=== PATIENT | female | born 1990 | race African-American/Black ===

== ENCOUNTER 2018-12-24 15:58 | Inpatient (IN) | payer OTHER ==
[2018-12-24 16:27] VITALS: BMI 34.0
--- NOTE | 2018-12-24 16:28 | PDOC ---
Rapid Medical Evaluation Chief Complaint: Shortness of Breath Time Seen by Provider: 12/24/18 16:26 Medical Evaluation: Allergies Allergy/AdvReac Type Severity Reaction Status Date / Time Fish Containing Products Allergy Severe Swelling Verified 07/21/15 12:40 vancomycin Allergy Severe Swelling Verified 07/21/15 12:40 sulfamethoxazole Allergy Intermediate fever, Verified 07/24/15 10:33 [From Bactrim] abnl lfts trimethoprim [From Bactrim] Allergy Intermediate fever, Verified 07/24/15 10:33 abnl lfts clindamycin Allergy Itching Verified 08/26/18 11:19 12/24/18 16:26 I have performed a brief in-person evaluation of this patient. The patient presents with a chief complaint of: h/o HIV/AID not on meds sent by PCP for evaluation of possible PNA s/p presenting to PCP today with URI symptoms and cough. Patient report malaise and nausea Pertinent physical exam findings: A&O x 3, lungs CTAB. heart RRR I have ordered the following:CXR The patient will proceed to the ED for further evaluation. Discharge Disposition - Diagnosis SOB (shortness of breath) - Referrals Referrals: Kayli Alexander PHOTOENGRAVING SUPERVISOR [Primary Care Provider] - - Patient Instructions - Post Discharge Activity
--- NOTE | 2018-12-24 16:49 | PDOC ---
History of Present Illness - General Chief Complaint: Shortness of Breath Stated Complaint: Respiratory Time Seen by Provider: 12/24/18 16:26 History Source: Patient Exam Limitations: No Limitations - History of Present Illness Initial Comments: 28 yo F w a pmh of asthma (no hospitalizations since childhood) and HIV formerly on HAART therapy - but not currently taking meds for 3 weeks, and chronic varicella zoster presents to the ER BIBEMS sent by her PCP - Kayli Alexander - for evaluation of possible PNA, URI symptoms and a cough. The patient reports that she ran out of her HIV meds 3 weeks ago, tried filling them but was unsuccessful. She admits to having a productive cough for the past week with dark brown phlegm. She states she had a negative TB test done in May. Here in the ED she endorses a headache whenever she coughs, but no neck pain or rigidity. She endorses a history of PCP pneumonia in the past but is allergic to Bactrim. She also endorses significant abdominal pain associated with 3 days of watery diarrhea. She admits to feeling very cold recently and generalized fatigue. Lastly, she states she feels like she is dying. She denies any dysuria, frequency, urgency, numbness, tingling, chills, blurry vision, nausea, or vomiting. PCP: Kayli Alexander PSH: None reported Social Hx: Lives in [facility], Every day smoker 7 per day, smokes K2, marijuana, denies IVDU or other substances including alcohol. Allergies: Fish containing products, vancomycin, Sulfamethoxazole, trimethoprim , clindamycin Past History - Past Medical History Allergies/Adverse Reactions: Allergies Allergy/AdvReac Type Severity Reaction Status Date / Time Fish Containing Products Allergy Severe Swelling Verified 12/24/18 20:11 vancomycin Allergy Severe Swelling Verified 12/24/18 20:11 sulfamethoxazole Allergy Intermediate fever, Verified 12/24/18 20:11 [From Bactrim] abnl lfts trimethoprim [From Bactrim] Allergy Intermediate fever, Verified 12/24/18 20:11 abnl lfts clindamycin Allergy Itching Verified 12/24/18 20:11 Home Medications: Ambulatory Orders Unobtainable 12/24/18 Anemia: No Asthma: Yes (ON MDI) Cancer: No Cardiac Disorders: No CVA: No COPD: No CHF: No Dementia: No Diabetes: No GI Disorders: No Disorders: No HTN: Yes (ON MEDS.) Hypercholesterolemia: No Kidney Stones: No Liver Disease: No Seizures: No Thyroid Disease: No - Surgical History Abdominal Surgery: No Appendectomy: No Cardiac Surgery: No Cholecystectomy: No Lung Surgery: No Neurologic Surgery: No Orthopedic Surgery: No - Reproductive History PID: No - Immunization History Immunization Up to Date: No - Suicide/Smoking/Psychosocial Hx Smoking History: Never smoked Have you smoked in the past 12 months: Yes Number of Cigarettes Smoked Daily: 20 Information on smoking cessation initiated: No 'Breaking Loose' booklet given: 05/21/18 Hx Alcohol Use: No Drug/Substance Use Hx: No Substance Use Type: Marijuana Hx Substance Use Treatment: Yes (One previous inpt rehab @ [facility] in 2014) Review of Systems - Review of Systems Able to Perform ROS?: Yes Comments:: CONSTITUTIONAL: Present: Chills, generalized weakness, malaise, loss of appetitie. Absent: fever, diaphoresis HEENT: Absent: rhinorrhea, nasal congestion, throat pain, throat swelling, difficulty swallowing, mouth swelling, ear pain, eye pain, visual Changes CARDIOVASCULAR: Present: Lightheadedness. Absent: chest pain, syncope, palpitations, irregular heart rate, peripheral edema RESPIRATORY: Present: Cough, shortness of breath, dyspnea with exertion, hemoptysis Absent: cough, orthopnea, wheezing, stridor GASTROINTESTINAL: Present: Abdominal pain, diarrhea Absent: abdominal distension, nausea, vomiting, constipation, melena, hematochezia GENITOURINARY: Absent: dysuria, frequency, urgency, hesitancy, hematuria, flank pain, genital pain MUSCULOSKELETAL: Present: Myalgia Absent: arthralgia, joint swelling SKIN: Present: Rash Absent: itching, pallor HEMATOLOGIC/IMMUNOLOGIC: Present: Frequent infections Absent: easy bleeding, easy bruising, lymphadenopathy ENDOCRINE: Absent: unexplained weight gain, unexplained weight loss, heat intolerance, cold intolerance NEUROLOGIC: Absent: headache, focal weakness or paresthesias, dizziness, unsteady gait, seizure, mental status changes, bladder or bowel incontinence PSYCHIATRIC: Present: Depression Absent: anxiety, suicidal or homicidal ideation, hallucinations. *Physical Exam - Vital Signs Last Vital Signs Temp Pulse Resp BP Pulse Ox 99.2 F 94 H 16 115/83 99 12/24/18 16:22 12/24/18 16:22 12/24/18 16:22 12/24/18 16:22 12/24/18 16:22 - Physical Exam Comments: GENERAL: Patient looks sick. Feels like she is dying. Morbidly obese. Well nourished. Awake and alert. HEENT: Oral thursh. Apthous ulcer on right later upper outer lip. Normocephalic, atraumatic. PERRLA, EOMI. No conjunctival pallor. Sclera are non-icteric. Moist mucous membranes. NECK: Supple. Full ROM. No JVD. No thyromegaly. No lymphadenopathy. CARDIOVASCULAR: Regular rate and rhythm. No murmurs, rubs, or gallops. Distal pulses are 2+ and symmetric. PULMONARY: Clear evidence of respiratory distress. Decreased breath sounds diffusely. No wheezing, rales or rhonchi. ABDOMINAL: Diffuse abdominal pain with no focal TTP. Abdomen is still soft and non- distended. No rebound or guarding. No organomegaly. Hyperactive bowel sounds. MUSCULOSKELETAL Normal range of motion at all joints. No bony deformities or tenderness. No CVA tenderness. EXTREMITIES: No cyanosis. No clubbing. No edema. No calf tenderness. SKIN: Warm and dry. Normal capillary refill. No rashes. No jaundice. NEUROLOGICAL: Alert, awake, appropriate. Cranial nerves 2-12 intact. Normal speech. Gait is normal without ataxia. PSYCHIATRIC: Cooperative. Good eye contact. Depressed mood and affect. Moderate Sedation - Procedure Monitoring Vital Signs: Procedure Monitoring Vital Signs Temperature 99.2 F 12/24/18 16:22 Pulse Rate 94 H 12/24/18 16:22 Respiratory Rate 16 12/24/18 16:22 Blood Pressure 115/83 12/24/18 16:22 O2 Sat by Pulse Oximetry (%) 99 12/24/18 16:22 ED Treatment Course - LABORATORY CBC & Chemistry Diagram: 12/24/18 16:40 12/24/18 16:40 Medical Decision Making - Medical Decision Making 28 yo F w a pmh of asthma (no hospitalizations since childhood) and HIV formerly on HAART therapy - but not currently taking meds for 3 weeks, and chronic varicella zoster presents to the ER BIBEMS sent by her PCP - Kayli Alexander - for evaluation of possible PNA, URI symptoms and a cough. The patient reports that she ran out of her HIV meds 3 weeks ago, tried filling them but was unsuccessful. She admits to having a productive cough for the past week with dark brown phlegm. She states she had a negative TB test done in May. Here in the ED she endorses a headache whenever she coughs, but no neck pain or rigidity. She endorses a history of PCP pneumonia in the past but is allergic to Bactrim. She also endorses significant abdominal pain associated with 3 days of watery diarrhea. She admits to feeling very cold recently and generalized fatigue. Lastly, she states she feels like she is dying. - VSS DDx IBNLT: AIDS related illness, PNA - PCP vs CAP, Sepsis, Neutropenic fever, cryptosporidium, other infection. Plan: ED adult sepsis work up, labs, urine, cultures, CXR, CTAP, Negative Isolation precautions, IV hydration, ID consult, Abx, Admit. - Patient is neutropenic with WBC of 1.7 - given allergy to bactrim and vancomycin will start patient on Zosyn, Dapsone, and azithromycin. - Possibility this can be PCP pneumonia - Lactic acid ordered. Abdominal pain: Will obtain CTAP and order cryptosporidium stool antigen. - CTAP shows no acute abdominal pathology. - CTAP does show bronchiectasis Consulted Dr. Mccarty who requested to not give dapsone but to give atovaquone instead bc we don't know the G6PD status of the patient. - Also requested stool cultures, urine legionella, Chest CT, LDH, and flu swab. Will Admit patient for further care. *DC/Admit/Observation/Transfer Diagnosis at time of Disposition: SOB (shortness of breath), Bronchiectasis, AIDS (acquired immunodeficiency syndrome), CD4 <=200, Neutropenia associated with acquired immune deficiency syndrome (AIDS) - Discharge Dispostion Condition at time of disposition: Guarded Decision to Admit order: Yes - Referrals Referrals: Kayli Alexander FRAMING MILL SUPERVISOR [Primary Care Provider] - - Patient Instructions - Post Discharge Activity
--- NOTE | 2018-12-24 16:50 | PDOC ---
Attending Attestation - HPI HPI: 12/24/18 18:13 The patient is a 28 year old female with a PMH og asthma and HIV, chronic varicella zoster who presents to the ER for productive cough and shortness of breath for the past 2 weeks and abdominal pain with watery diarrhea for the past 3 days. Patient states the cough is productive of dark brown phlegm. Patient has not been on HAART therapy for the past 3 weeks because she ran out and has been unable to fill the prescription. Denies any urinary symptoms, nausea or vomiting. PCP: Kayli Alexander PSH: None reported Social Hx: Lives in [facility], Every day smoker 7 per day, smokes K2, marijuana, denies IVDU or other substances including alcohol. Allergies: Fish containing products, vancomycin, Sulfamethoxazole, trimethoprim , clindamycin <Susan Erickson - Last Filed: 12/24/18 18:32> - Resident Resident Name: Eduar Celestin - Physicial Exam PE: 12/24/18 20:35 Agree with resident exam. Patient is sleeping but easily arousable. Lungs are clear. HR is regular rate and rhythm. Abdomen is soft, non tender and non distended. - Medical Decision Making 12/24/18 18:28 Pt presents to the ED complaining of generalized abdominal pain, shortness of breath and cough productive of dark sputum. Patient has known end stage AIDS, with CD4 count of 24 and has recently been non compliant with her medications. Will check labs and start broad spectrum antibiotics, including dapsone for PCP and zithromax for MAC. Will place in isolation and send blood and urine cx. GIven her abdominal pain and her immunocompromised status, will check CT abdomen pelvis to rule out intra-abdominal pathology. <Lourdes Dejesus - Last Filed: 12/24/18 20:37>
[2018-12-24 16:56] LABS: BASO % 0.9 % (0-2.0); EOS % 1.9 % (0-4.5); HEMOGLOBIN 12.7 GM/dL (10.7-15.3); LYMPH % 18.5 % (8-40); MCH 33.4 pg (25.7-33.7); MCHC 34.5 g/dl (32.0-36.0); MEAN CELL VOLUME 96.9 fl (80-96); MEAN PLT VOLUME 9.4 fl (7.5-11.1); MONO % 8.6 % (3.8-10.2); NEUT % 70.1 % (42.8-82.8); PLATELET COUNT 150 K/MM3 (134-434); RBC 3.82 M/mm3 (3.60-5.2); RDW 12.5 % (11.6-15.6)
[2018-12-24 16:59] LABS: WHITE BLOOD COUNT 1.7 K/mm3 (4.0-10.0)
[2018-12-24 17:22] LABS: ALBUMIN 2.8 g/dl (3.4-5.0); ALK PHOS 59 U/L (45-117); ANION GAP 6 MMOL/L (8-16); BILIRUBIN,TOTAL 0.3 mg/dL (0.2-1); BLOOD UREA NITROGEN 12 mg/dL (7-18); CALCIUM 8.3 mg/dL (8.5-10.1); CHLORIDE 106 mmol/L (98-107); CO2 27 mmol/L (21-32); CREATININE 0.9 mg/dL (0.55-1.3); GLUCOSE,RANDOM 84 mg/dL (74-106); POTASSIUM 3.5 mmol/L (3.5-5.1); SGOT/AST 22 U/L (15-37); SGPT/ALT 14 U/L (13-61); SODIUM 140 mmol/L (136-145); TOT PROT 8.4 g/dl (6.4-8.2)
[2018-12-24] MEDS ORDERED: SODIUM CHLORIDE IV ONE (17:27)
[2018-12-24] MEDS ORDERED: PIPERACILLIN/TAZOB 4.5 GM 4.5 GM in DEXTROSE 5%-WATER 100 ML IVPB ONE (17:57)
[2018-12-24] MEDS ORDERED: AZITHROMYCIN 600 MG TABLET PO ONE (17:59)
[2018-12-24 18:41] LABS: PLATELET ESTIMATE ADEQUATE
[2018-12-24] MEDS ORDERED: PIPERACILLIN/TAZOB 4.5 GM 4.5 GM/100 ML BAG IVPB ONE (19:26)
[2018-12-24 19:28] LABS: VENOUS PC02 39.2 mmHg (38-52); VENOUS PH 7.43 (7.32-7.42); VENOUS PO2 60.1 mmHg (28-48)
[2018-12-24] MEDS ORDERED: AZITHROMYCIN 250 MG TABLET PO ONE (19:41)
[2018-12-24 19:46] LABS: INR 0.97 (0.83-1.09); PROTHROMBIN TIME (PATIENT) 11.4 SEC (9.7-13.0)
[2018-12-24] MEDS ORDERED: AZITHROMYCIN 250 MG TABLET ONE (19:51)
[2018-12-24 20:07] LABS: URINE APPEARANCE SLCLOUDY; URINE BILIRUBIN NEGATIVE (<2.0 mg/dL); URINE COLOR AMBER; URINE GLUCOSE (UA) NEGATIVE (NEGATIVE); URINE KETONE NEGATIVE (NEGATIVE); URINE LEUK ESTERASE NEGATIVE (NEGATIVE); URINE NITRITE NEGATIVE (NEGATIVE); URINE PROTEIN 3+ (NEGATIVE)
[2018-12-24] MEDS ORDERED: ACETAMINOPHEN 1000 MG/100 ML VIAL (NON FORMULARY) IVPB ONE (20:19)
[2018-12-24] MEDS ORDERED: ACETAMINOPHEN INJECTION 100 ML IVPB ONE (20:29)
[2018-12-24 20:36] LABS: EPI CELLS RARE /HPF (FEW); URINE MUCUS RARE
--- NOTE | 2018-12-24 22:20 | PN ---
Teaching Attending Note Name of Resident: Hemalatha Castano ATTENDING PHYSICIAN STATEMENT I saw and evaluated the patient. I reviewed the resident's note and discussed the case with the resident. I agree with the resident's findings and plan as documented. SUBJECTIVE: Patient is a 28 year old woman with PMH of asthma (no hospitalizations since childhood), MRSA infection?, proteinuria with prior kidney biopsy and HIV disease formerly on HAART therapy - but not currently taking meds for 3 weeks, and chronic varicella zoster sent to the ER by her PCP - Kayli Alexander - for evaluation of possible PNA, URI symptoms and a cough. The patient reports that she ran out of her HIV meds 3 weeks ago, tried filling them but was unsuccessful. She admits to having a productive cough for the past week with dark brown sputum. She states she had a negative TB test done in May. She has a headache whenever she coughs, but no neck pain or rigidity. She has a history of PCP pneumonia in the past but is allergic to Bactrim. She also has abdominal pain associated with 3 days of watery diarrhea. She admits to feeling very cold recently and generalized fatigue. Lastly, she states she feels like she is dying. She denies any dysuria, frequency, urgency, numbness, tingling, chills, blurry vision, nausea, or vomiting. Lives in [facility], Every day smoker 7 per day, smokes K2, marijuana, denies IVDU or other substances including alcohol. Allergies include fish containing products, vancomycin, Sulfamethoxazole, trimethoprim, clindamycin OBJECTIVE: Alert Vital Signs Period Temp Pulse Resp BP Sys/Manriquez Pulse Ox Last 24 Hr 99.2 F 94 16 115/83 99 HEENT: No Jaundice, eye redness or discharge, PERRLA, EOMI. Normocephalic, atraumatic. External ears are normal and hearing is grossly intact. No nasal discharge. Has oral thrush and a mouth ulcer on right bucal mucosa. Neck: Supple, nontender. Cervical lymphadenopathy; no thyromegaly. No JVD Chest: Good effort. Clear to auscultation and percussion. Heart: Regular. No S3, rub or murmur Abdomen: Not distended, soft, diffuse tenderness and no HSM. No rebound or guarding. Normoactive bowel sounds. Ext: Peripheral pulses intact. No leg edema. Skin: Warm and dry. No petechiae, rash or ecchymosis. Neuro: Alert. Oriented x3. CN 2-12 grossly intact. Sensation grossly intact in all four extremities and DTR are symmetric. Home Medications Medication Instructions Recorded Unobtainable 12/24/18 Abnormal Lab Results 12/24/18 12/24/18 12/24/18 16:40 16:40 18:54 WBC 1.7 L* MCV 96.9 H Absolute Neuts (auto) 1.2 L PTT (Actin FS) VBG pH POC VBG pO2 Mixed VBG HCO3 Anion Gap 6 L Calcium 8.3 L Total Protein 8.4 H Albumin 2.8 L Urine Protein 3+ H Urine Urobilinogen 2.0 H 12/24/18 12/24/18 19:17 19:17 WBC MCV Absolute Neuts (auto) PTT (Actin FS) 21.0 L VBG pH 7.43 H POC VBG pO2 60.1 H Mixed VBG HCO3 25.5 H Anion Gap Calcium Total Protein Albumin Urine Protein Urine Urobilinogen ASSESSMENT AND PLAN: 1.Leukopenia/Rule out Sepsis - Source of infection unclear, but in view of recent CD4 count of ?24, GI/Pulmonary-related AIDS opportunistic infections are being ruled out. CXR shows possible RLL infiltrate and CT abdomen suggest bronchiectasis, but no significant abdominal/pelvic findings. ID has been consulted. Will get stool cultures, urine legionella, Chest CT, LDH, sputum for AFB and flu swab. Cryposporidium infection and PCP will be ruled out. Being treated with zosyn, azithromycin and atovaquone for PCP prophylaxis. Continue IV NS, reverse isolation and nystatin swish and swallow. Mouth ulcer may be related to leukopenia - will monitor it daily. Monitor WBC daily and discuss use of neupogen with ID emergency management consultant. 2. Hypoalbuminemia - Possibly due to combined effects of proteinuria, malnutrition and inflammation associated with comorbid chronic conditions. Will ensure adequate dietary protein intake and also consult oliver filter operator. 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 3. Tobacco Use We will provide patient all the necessary assistance to facilitate smoking cessation and prescribe Nicotine patch. 4. Obesity - Will provide patient all the necessary assistance, counseling and positive reinforcement to facilitate weight loss. Consult oliver filter operator. 5. DVT prophylaxis - Lovenox 40 mg SQ q 24 hours. 6. Advance directives - Full code
[2018-12-24] MEDS ORDERED: SODIUM CHLORIDE 1,000 ML IV SCH (23:45)
--- NOTE | 2018-12-24 23:54 | HP ---
CHIEF COMPLAINT:fatigue PCP:Dr. Alexander HISTORY OF PRESENT ILLNESS: Patient is a 28 year old female with past medical history of asthma and HIV (on HAART therapy), presented with fatigue, accompanied by cough and loose watery stools that started 2 weeks ago. Of note, patient has not had taken her HIV medications the past 3 weeks as she ran out and was not able to obtain a prescription. Two weeks ago, she started feeling fatigued with cough productive of brownish sputum, headache and subjective fevers. She went to [facility] where she was given IV fluids and was sent home with antibiotics which she was not able to take. Patient continue to feel tired with loss of appetite, and three days ago, started having episodes of loose watery stools (about 2 per day ) accompanied by diffuse abdominal pain. Patient went to her PCP and was sent from there for further management. Patient denies any chest pain, SOB, rhinorrhea, sore throat, difficulty swallowing. ER course was notable for: (1)WBC 1.7 (2)CT AP: no abdominal pathologies, bilateral inguinal LADs, bronchiectasis (3)IV Azithromycin/Zosyn (4) IV NS Recent Travel:denies PAST MEDICAL HISTORY: Asthma HIV (on HAART) PAST SURGICAL HISTORY: none Social History: Smoking:smokes 1/2 ppd for 15 years Alcohol:occasional Drugs: smokes marijuana about twice a week Family History: Father - DM Mother - Atrial fibrillation Allergies Fish Containing Products Allergy (Severe, Verified 12/24/18 20:11) Swelling vancomycin Allergy (Severe, Verified 12/24/18 20:11) Swelling sulfamethoxazole [From Bactrim] Allergy (Intermediate, Verified 12/24/18 20:11) fever, abnl lfts trimethoprim [From Bactrim] Allergy (Intermediate, Verified 12/24/18 20:11) fever, abnl lfts clindamycin Allergy (Verified 12/24/18 20:11) Itching HOME MEDICATIONS: Home Medications Medication Instructions Recorded Unobtainable 12/24/18 REVIEW OF SYSTEMS CONSTITUTIONAL: Absent: fever, chills, diaphoresis, generalized weakness, malaise, loss of appetite, weight change HEENT: Absent: rhinorrhea, nasal congestion, throat pain, throat swelling, difficulty swallowing, mouth swelling, ear pain, eye pain, visual changes CARDIOVASCULAR: Absent: chest pain, syncope, palpitations, irregular heart rate, lightheadedness , peripheral edema RESPIRATORY: Absent: cough, shortness of breath, dyspnea with exertion, orthopnea, wheezing, stridor, hemoptysis GASTROINTESTINAL: Absent: abdominal pain, abdominal distension, nausea, vomiting, diarrhea, constipation, melena, hematochezia GENITOURINARY: Absent: dysuria, frequency, urgency, hesitancy, hematuria, flank pain, genital pain MUSCULOSKELETAL: Absent: myalgia, arthralgia, joint swelling, back pain, neck pain SKIN: Absent: rash, itching, pallor HEMATOLOGIC/IMMUNOLOGIC: Absent: easy bleeding, easy bruising, lymphadenopathy, frequent infections ENDOCRINE: Absent: unexplained weight gain, unexplained weight loss, heat intolerance, cold intolerance NEUROLOGIC: Absent: headache, focal weakness or paresthesias, dizziness, unsteady gait, seizure, mental status changes, bladder or bowel incontinence PSYCHIATRIC: Absent: anxiety, depression, suicidal or homicidal ideation, hallucinations. PHYSICAL EXAMINATION Vital Signs - 24 hr 12/24/18 16:22 Temperature 99.2 F Pulse Rate 94 H Respiratory 16 Rate Blood Pressure 115/83 O2 Sat by Pulse 99 Oximetry (%) GENERAL: Awake, alert, and fully oriented, in no acute distress. EYES: PERRLA, EOMI, sclera anicteric, conjunctiva clear. EARS, NOSE, THROAT: Oral thrush, apthous ulcers on the right lateral lip. Dry mucous membranes. NECK: Normal range of motion, supple without lymphadenopathy, JVD, or masses. LUNGS: Breath sounds equal, clear to auscultation bilaterally. HEART: Regular rate and rhythm, normal S1 and S2 without murmur, rub or gallop. ABDOMEN: Soft, nontender, not distended, normoactive bowel sounds. MUSCULOSKELETAL: Normal range of motion at all joints. No bony deformities or tenderness. No CVA tenderness. UPPER EXTREMITIES: 2+ pulses, warm, well-perfused. No peripheral edema. LOWER EXTREMITIES: 2+ pulses, warm, well-perfused. No peripheral edema. NEUROLOGICAL: Cranial nerves II-XII intact. Motor strength 5/5, sensation intact. Normal speech. Normal gait. PSYCHIATRIC: Cooperative. Good eye contact. Appropriate mood and affect. SKIN: Warm, dry, normal turgor. Laboratory Results - last 24 hr 12/24/18 12/24/18 12/24/18 16:40 16:40 18:54 WBC 1.7 L* RBC 3.82 Hgb 12.7 Hct 37.0 MCV 96.9 H MCH 33.4 MCHC 34.5 RDW 12.5 Plt Count 150 MPV 9.4 Absolute Neuts (auto) 1.2 L Neutrophils % 70.1 Neutrophils % (Manual) 72.0 Band Neutrophils % 4.0 Lymphocytes % 18.5 D Lymphocytes % (Manual) 18.0 Monocytes % 8.6 Monocytes % (Manual) 4 Eosinophils % 1.9 Eosinophils % (Manual) 2.0 Basophils % 0.9 Basophils % (Manual) 0.0 Nucleated RBC % 0 Platelet Estimate Adequate PT with INR INR PTT (Actin FS) VBG pH POC VBG pCO2 POC VBG pO2 Mixed VBG HCO3 Sodium 140 Potassium 3.5 Chloride 106 Carbon Dioxide 27 Anion Gap 6 L BUN 12 Creatinine 0.9 Creat Clearance w eGFR > 60 Random Glucose 84 Calcium 8.3 L Total Bilirubin 0.3 AST 22 ALT 14 Alkaline Phosphatase 59 Creatine Kinase CK-MB (CK-2) Troponin I Total Protein 8.4 H Albumin 2.8 L Urine Color Nneka Urine Appearance Slcloudy Urine pH 5.0 Ur Specific Center 1.023 Urine Protein 3+ H Urine Glucose (UA) Negative Urine Ketones Negative Urine Blood Negative Urine Nitrite Negative Urine Bilirubin Negative Urine Urobilinogen 2.0 H Ur Leukocyte Esterase Negative Urine WBC (Auto) None Urine RBC (Auto) None Ur Epithelial Cells Rare Urine Mucus Rare Urine HCG, Qual Influenza A (Rapid) Influenza B (Rapid) Blood Type Antibody Screen 12/24/18 12/24/18 12/24/18 19:16 19:17 19:17 WBC RBC Hgb Hct MCV MCH MCHC RDW Plt Count MPV Absolute Neuts (auto) Neutrophils % Neutrophils % (Manual) Band Neutrophils % Lymphocytes % Lymphocytes % (Manual) Monocytes % Monocytes % (Manual) Eosinophils % Eosinophils % (Manual) Basophils % Basophils % (Manual) Nucleated RBC % Platelet Estimate PT with INR 11.40 INR 0.97 PTT (Actin FS) 21.0 L VBG pH POC VBG pCO2 POC VBG pO2 Mixed VBG HCO3 Sodium Potassium Chloride Carbon Dioxide Anion Gap BUN Creatinine Creat Clearance w eGFR Random Glucose Calcium Total Bilirubin AST ALT Alkaline Phosphatase Creatine Kinase 73 CK-MB (CK-2) < 1.0 Troponin I < 0.02 Total Protein Albumin Urine Color Urine Appearance Urine pH Ur Specific Center Urine Protein Urine Glucose (UA) Urine Ketones Urine Blood Urine Nitrite Urine Bilirubin Urine Urobilinogen Ur Leukocyte Esterase Urine WBC (Auto) Urine RBC (Auto) Ur Epithelial Cells Urine Mucus Urine HCG, Qual Influenza A (Rapid) Influenza B (Rapid) Blood Type Antibody Screen 12/24/18 12/24/18 12/24/18 19:17 19:17 20:01 WBC RBC Hgb Hct MCV MCH MCHC RDW Plt Count MPV Absolute Neuts (auto) Neutrophils % Neutrophils % (Manual) Band Neutrophils % Lymphocytes % Lymphocytes % (Manual) Monocytes % Monocytes % (Manual) Eosinophils % Eosinophils % (Manual) Basophils % Basophils % (Manual) Nucleated RBC % Platelet Estimate PT with INR INR PTT (Actin FS) VBG pH 7.43 H POC VBG pCO2 39.2 POC VBG pO2 60.1 H Mixed VBG HCO3 25.5 H Sodium Potassium Chloride Carbon Dioxide Anion Gap BUN Creatinine Creat Clearance w eGFR Random Glucose Calcium Total Bilirubin AST ALT Alkaline Phosphatase Creatine Kinase CK-MB (CK-2) Troponin I Total Protein Albumin Urine Color Urine Appearance Urine pH Ur Specific Center Urine Protein Urine Glucose (UA) Urine Ketones Urine Blood Urine Nitrite Urine Bilirubin Urine Urobilinogen Ur Leukocyte Esterase Urine WBC (Auto) Urine RBC (Auto) Ur Epithelial Cells Urine Mucus Urine HCG, Qual Negative Influenza A (Rapid) Influenza B (Rapid) Blood Type B POSITIVE Antibody Screen Negative 12/24/18 21:09 WBC RBC Hgb Hct MCV MCH MCHC RDW Plt Count MPV Absolute Neuts (auto) Neutrophils % Neutrophils % (Manual) Band Neutrophils % Lymphocytes % Lymphocytes % (Manual) Monocytes % Monocytes % (Manual) Eosinophils % Eosinophils % (Manual) Basophils % Basophils % (Manual) Nucleated RBC % Platelet Estimate PT with INR INR PTT (Actin FS) VBG pH POC VBG pCO2 POC VBG pO2 Mixed VBG HCO3 Sodium Potassium Chloride Carbon Dioxide Anion Gap BUN Creatinine Creat Clearance w eGFR Random Glucose Calcium Total Bilirubin AST ALT Alkaline Phosphatase Creatine Kinase CK-MB (CK-2) Troponin I Total Protein Albumin Urine Color Urine Appearance Urine pH Ur Specific Center Urine Protein Urine Glucose (UA) Urine Ketones Urine Blood Urine Nitrite Urine Bilirubin Urine Urobilinogen Ur Leukocyte Esterase Urine WBC (Auto) Urine RBC (Auto) Ur Epithelial Cells Urine Mucus Urine HCG, Qual Influenza A (Rapid) Negative Influenza B (Rapid) Negative Blood Type Antibody Screen ASSESSMENT/PLAN: Patient is a 28 year old female with past medical history of asthma and HIV (on HAART therapy), presented with fatigue, accompanied by cough and loose watery stools that started 2 weeks ago. #Fatigue likely 2/2 HIV, dehydration from poor oral intake, rule out PNA -WBC 1.7, last CD4 count as per PCP 27 -CT abdomen - no acute pathology, bronchiectasis -Chest CT ordered -ID (Dr. Yañez) consulted. Recommendations appreciated. -Urine legionella, urine culture -sputum culture and AFB -Blood culture -Stool culture and cryptosporidium -LDH -IV Azithromycin and Zosyn started at the ED -Will continue Azithromycin and Zosyn -Start Atovaquone 1500mg for PCP prophylaxis -IV hydration -Reverse isolation #Oral thrush -Nystatin swish and swallow #Neutropenia -WBC 1.7 -neutropenic isolation -neutropenic diet -will continue to monitor #FEN -IV NS @ 100cc/hr -Electrolytes wnl , routine bmp monitoring -Neutropenic diet #Prophylaxis -Lovenox 40mg sq daily #Disposition -full code -admit to med surg -neutropenic isolation Visit type - Emergency Visit Emergency Visit: Yes ED Registration Date: 12/24/18 Care time: The patient presented to the Emergency Department on the above date and was hospitalized for further evaluation of their emergent condition. - New Patient This patient is new to me today: Yes Date on this admission: 12/25/18 - Critical Care Critical Care patient: No
[2018-12-25] MEDS ORDERED: DEXTROSE 5%-WATER - 50 ML IVPB ONE ×3 (00:39→18:29)
[2018-12-25] MEDS ORDERED: PIPERACILLIN/TAZOBACTAM 3.375 GM VIAL IVPB ONE ×3 (00:39→18:29)
[2018-12-25] MEDS: NYSTATIN 500,000 UNITS/5 ML SUSPENSION PO SCH ×4 (01:20→18:32)
[2018-12-25] MEDS: PIPERACILLIN/TAZOB 3.375 GM 3.375 GM in DEXTROSE 5%-WATER - 50 ML IVPB SCH ×3 (03:10→18:32)
[2018-12-25 07:34] LABS: EOS % 3.5 % (0-4.5); HEMATOCRIT 33.5 % (32.4-45.2); HEMOGLOBIN 11.4 GM/dL (10.7-15.3); MCH 32.8 pg (25.7-33.7); MCHC 34.1 g/dl (32.0-36.0); MEAN CELL VOLUME 96.2 fl (80-96); MONO % 16.9 % (3.8-10.2); NEUT % 46.6 % (42.8-82.8); RBC 3.48 M/mm3 (3.60-5.2); RDW 12.3 % (11.6-15.6)
[2018-12-25 07:53] LABS: LDH 270 U/L (84-246)
[2018-12-25 07:59] LABS: ALBUMIN 2.1 g/dl (3.4-5.0); ALK PHOS 49 U/L (45-117); ANION GAP 4 MMOL/L (8-16); BILIRUBIN,TOTAL 0.2 mg/dL (0.2-1); BLOOD UREA NITROGEN 9 mg/dL (7-18); CALCIUM 7.5 mg/dL (8.5-10.1); CHLORIDE 111 mmol/L (98-107); CO2 25 mmol/L (21-32); CREATININE 0.8 mg/dL (0.55-1.3); GLUCOSE,RANDOM 71 mg/dL (74-106); MAGNESIUM 2.1 mg/dL (1.8-2.4); PHOSPHOROUS 3.6 mg/dL (2.5-4.9); POTASSIUM 3.4 mmol/L (3.5-5.1); SGOT/AST 21 U/L (15-37); SGPT/ALT 10 U/L (13-61); SODIUM 140 mmol/L (136-145); TOT PROT 6.8 g/dl (6.4-8.2)
[2018-12-25] MEDS ORDERED: POTASSIUM CHLORIDE TABS 20 MEQ TABLET.ER (FP) PO ONE (08:37)
--- NOTE | 2018-12-25 08:50 | PN ---
Physical Exam: SUBJECTIVE: Patient seen and examined at bedside. URI symptoms, weakness, fatigue unchanged, no further diarrhea at time of encounter. OBJECTIVE: Vital Signs Period Temp Pulse Resp BP Sys/Manriquez Pulse Ox Last 24 Hr 98.3 F-99.2 F 64-94 16-18 115-147/69-96 98-100 GENERAL: A&Ox3, NAD HEENT: PERRLA, EOMI, sclera anicteric, conjunctiva clear, +oral thrush, apthous ulcers on the right lateral lip, MMM NECK: Normal range of motion, supple without lymphadenopathy, JVD, or masses. 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 Laboratory Results - last 24 hr 12/24/18 12/24/18 12/24/18 16:40 16:40 18:54 WBC 1.7 L* RBC 3.82 Hgb 12.7 Hct 37.0 MCV 96.9 H MCH 33.4 MCHC 34.5 RDW 12.5 Plt Count 150 MPV 9.4 Absolute Neuts (auto) 1.2 L Neutrophils % 70.1 Neutrophils % (Manual) 72.0 Band Neutrophils % 4.0 Lymphocytes % 18.5 D Lymphocytes % (Manual) 18.0 Monocytes % 8.6 Monocytes % (Manual) 4 Eosinophils % 1.9 Eosinophils % (Manual) 2.0 Basophils % 0.9 Basophils % (Manual) 0.0 Nucleated RBC % 0 Platelet Estimate Adequate PT with INR INR PTT (Actin FS) VBG pH POC VBG pCO2 POC VBG pO2 Mixed VBG HCO3 Sodium 140 Potassium 3.5 Chloride 106 Carbon Dioxide 27 Anion Gap 6 L BUN 12 Creatinine 0.9 Creat Clearance w eGFR > 60 Random Glucose 84 Lactic Acid Calcium 8.3 L Phosphorus Magnesium Total Bilirubin 0.3 AST 22 ALT 14 Alkaline Phosphatase 59 LD Total 270 H Creatine Kinase CK-MB (CK-2) Troponin I Total Protein 8.4 H Albumin 2.8 L Urine Color Nneka Urine Appearance Slcloudy Urine pH 5.0 Ur Specific Aspers 1.023 Urine Protein 3+ H Urine Glucose (UA) Negative Urine Ketones Negative Urine Blood Negative Urine Nitrite Negative Urine Bilirubin Negative Urine Urobilinogen 2.0 H Ur Leukocyte Esterase Negative Urine WBC (Auto) None Urine RBC (Auto) None Ur Epithelial Cells Rare Urine Mucus Rare Urine HCG, Qual Influenza A (Rapid) Influenza B (Rapid) Blood Type Antibody Screen 12/24/18 12/24/18 12/24/18 18:54 19:16 19:17 WBC RBC Hgb Hct MCV MCH MCHC RDW Plt Count MPV Absolute Neuts (auto) Neutrophils % Neutrophils % (Manual) Band Neutrophils % Lymphocytes % Lymphocytes % (Manual) Monocytes % Monocytes % (Manual) Eosinophils % Eosinophils % (Manual) Basophils % Basophils % (Manual) Nucleated RBC % Platelet Estimate PT with INR INR PTT (Actin FS) VBG pH POC VBG pCO2 POC VBG pO2 Mixed VBG HCO3 Sodium Potassium Chloride Carbon Dioxide Anion Gap BUN Creatinine Creat Clearance w eGFR Random Glucose Lactic Acid 0.7 Calcium Phosphorus Magnesium Total Bilirubin AST ALT Alkaline Phosphatase LD Total Creatine Kinase 73 CK-MB (CK-2) < 1.0 Troponin I < 0.02 Total Protein Albumin Urine Color Urine Appearance Urine pH Ur Specific Aspers Urine Protein Urine Glucose (UA) Urine Ketones Urine Blood Urine Nitrite Urine Bilirubin Urine Urobilinogen Ur Leukocyte Esterase Urine WBC (Auto) Urine RBC (Auto) Ur Epithelial Cells Urine Mucus Urine HCG, Qual Influenza A (Rapid) Influenza B (Rapid) Blood Type Antibody Screen 12/24/18 12/24/18 12/24/18 19:17 19:17 19:17 WBC RBC Hgb Hct MCV MCH MCHC RDW Plt Count MPV Absolute Neuts (auto) Neutrophils % Neutrophils % (Manual) Band Neutrophils % Lymphocytes % Lymphocytes % (Manual) Monocytes % Monocytes % (Manual) Eosinophils % Eosinophils % (Manual) Basophils % Basophils % (Manual) Nucleated RBC % Platelet Estimate PT with INR 11.40 INR 0.97 PTT (Actin FS) 21.0 L VBG pH 7.43 H POC VBG pCO2 39.2 POC VBG pO2 60.1 H Mixed VBG HCO3 25.5 H Sodium Potassium Chloride Carbon Dioxide Anion Gap BUN Creatinine Creat Clearance w eGFR Random Glucose Lactic Acid Calcium Phosphorus Magnesium Total Bilirubin AST ALT Alkaline Phosphatase LD Total Creatine Kinase CK-MB (CK-2) Troponin I Total Protein Albumin Urine Color Urine Appearance Urine pH Ur Specific Aspers Urine Protein Urine Glucose (UA) Urine Ketones Urine Blood Urine Nitrite Urine Bilirubin Urine Urobilinogen Ur Leukocyte Esterase Urine WBC (Auto) Urine RBC (Auto) Ur Epithelial Cells Urine Mucus Urine HCG, Qual Influenza A (Rapid) Influenza B (Rapid) Blood Type B POSITIVE Antibody Screen Negative 12/24/18 12/24/18 12/25/18 20:01 21:09 05:25 WBC 1.0 L* RBC 3.48 L Hgb 11.4 Hct 33.5 MCV 96.2 H MCH 32.8 MCHC 34.1 RDW 12.3 Plt Count 122 L MPV 8.6 Absolute Neuts (auto) 0.5 L Neutrophils % 46.6 D Neutrophils % (Manual) Band Neutrophils % Lymphocytes % 32.0 D Lymphocytes % (Manual) Monocytes % 16.9 H D Monocytes % (Manual) Eosinophils % 3.5 D Eosinophils % (Manual) Basophils % 1.0 Basophils % (Manual) Nucleated RBC % 0 Platelet Estimate PT with INR INR PTT (Actin FS) VBG pH POC VBG pCO2 POC VBG pO2 Mixed VBG HCO3 Sodium Potassium Chloride Carbon Dioxide Anion Gap BUN Creatinine Creat Clearance w eGFR Random Glucose Lactic Acid Calcium Phosphorus Magnesium Total Bilirubin AST ALT Alkaline Phosphatase LD Total Creatine Kinase CK-MB (CK-2) Troponin I Total Protein Albumin Urine Color Urine Appearance Urine pH Ur Specific [place]ers Urine Protein Urine Glucose (UA) Urine Ketones Urine Blood Urine Nitrite Urine Bilirubin Urine Urobilinogen Ur Leukocyte Esterase Urine WBC (Auto) Urine RBC (Auto) Ur Epithelial Cells Urine Mucus Urine HCG, Qual Negative Influenza A (Rapid) Negative Influenza B (Rapid) Negative Blood Type Antibody Screen 12/25/18 05:25 WBC RBC Hgb Hct MCV MCH MCHC RDW Plt Count MPV Absolute Neuts (auto) Neutrophils % Neutrophils % (Manual) Band Neutrophils % Lymphocytes % Lymphocytes % (Manual) Monocytes % Monocytes % (Manual) Eosinophils % Eosinophils % (Manual) Basophils % Basophils % (Manual) Nucleated RBC % Platelet Estimate PT with INR INR PTT (Actin FS) VBG pH POC VBG pCO2 POC VBG pO2 Mixed VBG HCO3 Sodium 140 Potassium 3.4 L Chloride 111 H Carbon Dioxide 25 Anion Gap 4 L BUN 9 Creatinine 0.8 Creat Clearance w eGFR > 60 Random Glucose 71 L Lactic Acid Calcium 7.5 L Phosphorus 3.6 Magnesium 2.1 Total Bilirubin 0.2 AST 21 ALT 10 L Alkaline Phosphatase 49 LD Total Creatine Kinase CK-MB (CK-2) Troponin I Total Protein 6.8 Albumin 2.1 L Urine Color Urine Appearance Urine pH Ur Specific [place]ers Urine Protein Urine Glucose (UA) Urine Ketones Urine Blood Urine Nitrite Urine Bilirubin Urine Urobilinogen Ur Leukocyte Esterase Urine WBC (Auto) Urine RBC (Auto) Ur Epithelial Cells Urine Mucus Urine HCG, Qual Influenza A (Rapid) Influenza B (Rapid) Blood Type Antibody Screen Active Medications Generic Name Dose Route Start Last Admin Trade Name Freq PRN Reason Stop Dose Admin Atovaquone 1,500 mg 12/25/18 08:00 Mepron - PO DAILY@0800 KIERAN Enoxaparin Sodium 40 mg 12/25/18 10:00 Lovenox - SQ DAILY KIERAN Azithromycin 500 mg in 250 mls @ 250 mls/hr 12/25/18 10:00 Zithromax 500mg Ivpb (Pre-Docked) IVPB DAILY KIERAN Sodium Chloride 1,000 mls @ 100 mls/hr 12/24/18 23:45 12/25/18 01:20 Normal Saline - IV 100 mls/hr ASDIR KIERAN Administration Piperacillin Sod/Tazobactam 50 mls @ 100 mls/hr 12/25/18 02:00 Sod 3.375 gm/ Dextrose IVPB Q8H-IV KIERAN Protocol Piperacillin Sod/Tazobactam 50 mls @ 100 mls/hr 12/25/18 02:00 12/25/18 03:10 Sod 3.375 gm/ Dextrose IVPB 12/25/18 18:29 100 mls/hr Q8H-IV KIERAN Administration Protocol Nystatin 500,000 units 12/25/18 00:00 12/25/18 06:15 Nystatin Oral Suspension - PO 500,000 units Q6HPO KIERAN Administration Potassium Chloride 40 meq 12/25/18 08:37 K-Dur - PO 12/25/18 08:38 ONCE ONE ASSESSMENT/PLAN: 28 y/o F w/ PMHx asthma, HIV+ w/ AIDS-defining complications, p/w cough productive of brown sputum, fatigue, weakness, diarrhea x 2-3 weeks #opportunistic infection 2/2 HIV -WBC 1, Abs PMNs 0.5 -as of August CD4 27, viral load > 100k -CXR benign appearing -CT a/p showing bronchiectasis -Chest CT ordered -ID (Dr. Yañez) consulted. Recommendations appreciated. -Urine legionella, urine culture -standard and AFB sputum Cx -standard and mycobacterial BCx -Stool Cx and stool cryptosporidium antigens -CMV PCR -Cryptococcal antigens -Quantiferon -LDH 270 -empiric Tx of unspecified infectious illness and PCP PPx: Zosyn, IV Azithromycin, atovaquone -IV hydration -mycobacterial and neutropenic isolation -O2 sat 98-100 on RA -Pt asked if she has AIDS and if she will : AIDS-defining complications of HIV infection explained, importance of adherence to HAART explained and emphasized #Oral thrush -Nystatin swish and swallow #Neutropenia -WBC 1 -neutropenic isolation -neutropenic diet -will continue to monitor -heme consult placed (Dr. Garcia) for consideration of Neupogen #FEN -IV NS @ 100cc/hr -monitor and correct electrolytes -Neutropenic diet #PPx -DVT: Lovenox 40mg sq daily -GI: not indicated -PCP: atovaquone, IV azithro #code -full #disposition -med/surg under neutropenic/TB isolation Visit type - Emergency Visit Emergency Visit: No - New Patient This patient is new to me today: Yes Date on this admission: 12/25/18 - Critical Care Critical Care patient: No
[2018-12-25] MEDS: AZITHROMYCIN IVPB 500 MG/250 ML BAG IVPB SCH (09:44)
[2018-12-25] MEDS: ATOVAQUONE 750 MG/5 ML (UNIT-DOSE PACKAGING) PO SCH (09:44)
[2018-12-25] MEDS: ENOXAPARIN NA (PORCINE) 40 MG/0.4 ML DISP.SYRIN SQ SCH (09:44)
[2018-12-25] MEDS ORDERED: DAPSONE 100 MG TABLET PO SCH (10:00)
--- NOTE | 2018-12-25 10:41 | PN ---
Progress Note (short form) - Note Progress Note: ID consult dictated imp/reccd 28 yo female with AIDS- cd4 27 admitted with worsening weakness, intermittent diarrhea and abdominal pain and chronic cough occasional fevers no visual changes no hemoptysis no bloody stools no history TB no history hepb or c (negative 05/27) ?PCP- she cannot confirm +cigarette, K2 and marijuana smoker no IVDU not sexually active for months essentially homeless med adherence appears spotty at best and recently off meds for unknown amount of time! she has not disclosed her status to anyone and is concerned about confidentiality d/w medical team at length AIDS neutropenia reports fevers at home (none here) abdominal pain and intermittent diarrhea cough for months r/o TB-chest ct, isolation, sputum afb and sputum culture r/o bacterial vs cryptosporiadial gastroenteritis r/o cmv- no visual changes but will get pcr blood afb crytococcal antigen (chronic headaches) zosyn/zith for now chest ct nystatin for thrush hematology to see- ?neupogen Problem List - Problems (1) AIDS (acquired immunodeficiency syndrome), CD4 <=200 Code(s): B20 - HUMAN IMMUNODEFICIENCY VIRUS [HIV] DISEASE (2) 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
[2018-12-25] MEDS ORDERED: PT OWN MED DRAWER 7, Y5N ONE (10:52)
--- NOTE | 2018-12-25 12:13 | CONS ---
DATE OF CONSULTATION: DATE OF DICTATION: 12/25/2018 REQUESTED BY: The hospitalist service. HISTORY OF PRESENT ILLNESS: This is a 28-year-old woman with a history of HIV since 2013 with intermittent adherence to her medications. She presented for care in the summer of 2017 to the [facility]. Was started on Prezcobix and Descovy which she has intermittently taken. She reports most recently for the last several weeks she has not been on medications. She has issues with disclosure. Has not had a steady place to live. She has been in and out of shelters and staying with friends and has not wanted anyone to see that she takes medications. She reports she has had fatigue. She has had intermittent diarrhea. All over the several weeks at least since the New Year she has diffuse abdominal pain which she also reports as intermittent. She has had cough which she reports she has had for a month. She reports her last hospitalization was in early 2017 at [facility] for pneumonia. She denies any hemoptysis. Her diarrhea is intermittent. She denies any blood in her stools. She is not sexually active. She has no vaginal discharge. She denies any history of STDs or hepatitis in the past. She denies prior history of tuberculosis. PAST MEDICAL HISTORY: Notable for asthma, hypertension and HIV. SURGICAL HISTORY: Notable for surgery on her left ear in 2012. ALLERGIES: She is allergic to many antibiotics including VANCOMYCIN, BACTRIM and CLINDAMYCIN. FAMILY HISTORY: Unremarkable. SOCIAL HISTORY: She smokes marijuana and cigarettes. She uses K2. She has never used intravenous drugs. REVIEW OF SYSTEMS: Notable for chronic headaches. She has brown sputum production. She has chronic abdominal pain. She has no vaginal discharge. Her vision is stable and she is alert. In May when she came to the [facility] she used to weigh 110 kg and her current weight is 100 kg so she has lost 10 kg over the last 6 months. She denies any history of STDs in the past as well. PHYSICAL EXAMINATION: General: She is resting comfortably. Vital Signs: Her T-max was 99.2, current temperature is 98.4, pulse is 67, blood pressure 147/96, respiratory rate is 18, she is saturating 98% on room air. HEENT: She is normocephalic. Her eyes are anicteric. She has no conjunctival hemorrhages. Neck: Supple. She has no meningeal signs. She has no palpable adenopathy. She has thrush. Lungs: Have diminished breath sounds at the bases. Heart: Regular rate and rhythm. Abdomen: Soft. She has no distention. She has good bowel sounds. She has diffuse discomfort to palpation. She has no rebound or guarding. Extremities: Without edema. Skin: She has a healed scar in the middle of her back. LABORATORY DATA: Her white count was 1.7 yesterday, today is 1, hemoglobin 11.4, platelets are 122. INR is 0.97. Her BUN is 9 and creatinine is 0.8 with normal LFTs. Albumin is 2.1. Urinalysis has 3+ protein. Last T-cells from August are 27 and her insulin screen is negative. RPR was done and is negative as well. She had a chest x-ray done in the emergency room that was unremarkable. She has had a CAT scan of her abdomen and pelvis done given the abdominal pain notable for some mildly prominent inguinal nodes and bronchiectasis in the lower lobe of the right lung. ASSESSMENT: In summary, this is a 28-year-old woman with acquired immunodeficiency syndrome, subjective fevers at home, no visual changes, no history of hepatitis B or C, negative on May 27, admitted with neutropenia, subjective fevers at home, abdominal pain, intermittent diarrhea and cough for a month. Would rule out tuberculosis. Would place her in isolation. Sputum acid-fast bacillus and cultures. Rule out bacterial versus opportunistic gastroenteritis. Would send stool for cultures, Giardia, cryptosporidium, microsporidium. Rule out cytomegalovirus disease. No visual changes but will send a polymerase chain reaction. Blood acid-fast bacillus. Cryptococcal antigen given her chronic headaches. Would continue Zosyn and Zithromax for now. She has a computed axial tomography scan of her chest ordered and pending. Would continue nystatin for thrush and would suggest Hematology to see given her neutropenia. Would recommend acid-fast bacillus isolation at this time. Case was discussed at length with the medical service. CHARLES LUO M.D. JAKE/[id number]
--- NOTE | 2018-12-25 12:57 | EKG ---
Test Reason : Blood Pressure : / mmHG Vent. Rate : 078 BPM Atrial Rate : 078 BPM P-R Int : 214 ms QRS Dur : 076 ms QT Int : 412 ms P-R-T Axes : 052 030 066 degrees QTc Int : 469 ms SINUS RHYTHM WITH 1ST DEGREE A-V BLOCK SEPTAL INFARCT , AGE UNDETERMINED ABNORMAL ECG WHEN COMPARED WITH ECG OF 21-MAY-2018 19:37, NO SIGNIFICANT CHANGE WAS FOUND Confirmed by CAMDEN EWING MD ([id number]) on 12/25/2018 12:57:09 PM Referred By: Confirmed By:CAMDEN EWING MD
--- NOTE | 2018-12-25 14:56 | CONSULT ---
Consultation: REQUESTING PROVIDER: CONSULT REQUEST: We have been asked to medically evaluate this patient for leukopenia. HISTORY OF PRESENT ILLNESS: This is a 28 year old female with a history of AIDS, non compliant with antiretrovirals, who presents with lethargy for the past two weeks, found to be leukopenic, wbc count 1.7. Admits to mild cough and clear sputum production. She denies fever, chills, n, v, chest pain, vinson, sob, blurry vision, abdominal pain, urinary frequency, dysuria, diarrhea. She lives with a roommate. Does not want family or friends to know about her condition. Social Hx: Does not work or go to school. She smokes 1/2 pack cig per day since age 12. Smokes weed, no other illicit drug use. No alcohol. REVIEW OF SYSTEMS: CONSTITUTIONAL: POsitive; lethargy, generalized weakness, malaise, Absent: fever, chills, diaphoresis, loss of appetite, weight change HEENT: Absent: rhinorrhea, nasal congestion, throat pain, throat swelling, difficulty swallowing, mouth swelling, ear pain, eye pain, visual changes CARDIOVASCULAR: Absent: chest pain, syncope, palpitations, irregular heart rate, lightheadedness , peripheral edema RESPIRATORY: Absent: cough, shortness of breath, dyspnea with exertion, orthopnea, wheezing, stridor, hemoptysis GASTROINTESTINAL: Absent: abdominal pain, abdominal distension, nausea, vomiting, diarrhea, constipation, melena, hematochezia GENITOURINARY: Absent: dysuria, frequency, urgency, hesitancy, hematuria, flank pain, genital pain MUSCULOSKELETAL: Absent: myalgia, arthralgia, joint swelling, back pain, neck pain SKIN: Absent: rash, itching, pallor HEMATOLOGIC/IMMUNOLOGIC: Absent: easy bleeding, easy bruising, lymphadenopathy, frequent infections ENDOCRINE: Absent: unexplained weight gain, unexplained weight loss, heat intolerance, cold intolerance NEUROLOGIC: Absent: headache, focal weakness or paresthesias, dizziness, unsteady gait, seizure, mental status changes, bladder or bowel incontinence PSYCHIATRIC: Absent: anxiety, depression, suicidal or homicidal ideation, hallucinations. PHYSICAL EXAMINATION Vital Signs - 24 hr 12/24/18 12/24/18 12/25/18 16:22 23:45 00:11 Temperature 99.2 F 99.2 F 98.3 F Pulse Rate 94 H Pulse Rate [ 67 Left Radial] Respiratory 16 18 Rate Blood Pressure 115/83 Blood Pressure 138/77 [Left Arm] O2 Sat by Pulse 99 100 Oximetry (%) 12/25/18 12/25/18 12/25/18 01:38 06:00 09:00 Temperature 98.9 F 98.4 F 98.1 F Pulse Rate 64 67 64 Pulse Rate [ Left Radial] Respiratory 18 18 18 Rate Blood Pressure 138/69 147/96 150/100 Blood Pressure [Left Arm] O2 Sat by Pulse 98 Oximetry (%) 12/25/18 10:54 Temperature Pulse Rate Pulse Rate [ Left Radial] Respiratory 18 Rate Blood Pressure Blood Pressure [Left Arm] O2 Sat by Pulse 98 Oximetry (%) GENERAL: obese, laying in bed ; wrapped in blankes HEAD: Normal with no signs of trauma. EYES: Pupils equal, round and reactive to light, extraocular movements intact, sclera anicteric, conjunctiva clear. No lid lag. THROAT:white tongue; dry mucous membranes NECK: Normal range of motion, supple without lymphadenopathy, JVD, or masses. LUNGS:decreased breath sounds Breast/axilla: no masses/lumps/nipple discharge HEART: Regular rate and rhythm, normal S1 and S2 without murmur, rub or gallop. ABDOMEN: Soft, nontender, not distended, normoactive bowel sounds, no guarding, no rebound, no masses. No hepatomegaly or splenomegaly. MUSCULOSKELETAL: Normal range of motion at all joints. No bony deformities or tenderness. No CVA tenderness. UPPER EXTREMITIES: 2+ pulses, warm, well-perfused. No cyanosis. No clubbing. Cap refill <2 seconds. No peripheral edema. LOWER EXTREMITIES: 2+ pulses, warm, well-perfused. No calf tenderness. No peripheral edema. NEUROLOGICAL: Cranial nerves II-XII intact. Normal speech. Laboratory Results - last 24 hr 12/24/18 12/24/18 12/24/18 16:40 16:40 18:54 WBC 1.7 L* RBC 3.82 Hgb 12.7 Hct 37.0 MCV 96.9 H MCH 33.4 MCHC 34.5 RDW 12.5 Plt Count 150 MPV 9.4 Absolute Neuts (auto) 1.2 L Total Counted Neutrophils % 70.1 Neutrophils % (Manual) 72.0 Band Neutrophils % 4.0 Lymphocytes % 18.5 D Lymphocytes % (Manual) 18.0 Monocytes % 8.6 Monocytes % (Manual) 4 Eosinophils % 1.9 Eosinophils % (Manual) 2.0 Basophils % 0.9 Basophils % (Manual) 0.0 Nucleated RBC % 0 Platelet Estimate Adequate Platelet Comment PT with INR INR PTT (Actin FS) VBG pH POC VBG pCO2 POC VBG pO2 Mixed VBG HCO3 Sodium 140 Potassium 3.5 Chloride 106 Carbon Dioxide 27 Anion Gap 6 L BUN 12 Creatinine 0.9 Creat Clearance w eGFR > 60 Random Glucose 84 Lactic Acid Calcium 8.3 L Phosphorus Magnesium Total Bilirubin 0.3 AST 22 ALT 14 Alkaline Phosphatase 59 LD Total 270 H Creatine Kinase CK-MB (CK-2) Troponin I Total Protein 8.4 H Albumin 2.8 L Urine Color N[place]ka Urine Appearance Slcloudy Urine pH 5.0 Ur Specific [place] 1.023 Urine Protein 3+ H Urine Glucose (UA) Negative Urine Ketones Negative Urine Blood Negative Urine Nitrite Negative Urine Bilirubin Negative Urine Urobilinogen 2.0 H Ur Leukocyte Esterase Negative Urine WBC (Auto) None Urine RBC (Auto) None Ur Epithelial Cells Rare Urine Mucus Rare Urine HCG, Qual Influenza A (Rapid) Influenza B (Rapid) Blood Type Antibody Screen 12/24/18 12/24/18 12/24/18 18:54 19:16 19:17 WBC RBC Hgb Hct MCV MCH MCHC RDW Plt Count MPV Absolute Neuts (auto) Total Counted Neutrophils % Neutrophils % (Manual) Band Neutrophils % Lymphocytes % Lymphocytes % (Manual) Monocytes % Monocytes % (Manual) Eosinophils % Eosinophils % (Manual) Basophils % Basophils % (Manual) Nucleated RBC % Platelet Estimate Platelet Comment PT with INR INR PTT (Actin FS) VBG pH POC VBG pCO2 POC VBG pO2 Mixed VBG HCO3 Sodium Potassium Chloride Carbon Dioxide Anion Gap BUN Creatinine Creat Clearance w eGFR Random Glucose Lactic Acid 0.7 Calcium Phosphorus Magnesium Total Bilirubin AST ALT Alkaline Phosphatase LD Total Creatine Kinase 73 CK-MB (CK-2) < 1.0 Troponin I < 0.02 Total Protein Albumin Urine Color Urine Appearance Urine pH Ur Specific [place] Urine Protein Urine Glucose (UA) Urine Ketones Urine Blood Urine Nitrite Urine Bilirubin Urine Urobilinogen Ur Leukocyte Esterase Urine WBC (Auto) Urine RBC (Auto) Ur Epithelial Cells Urine Mucus Urine HCG, Qual Influenza A (Rapid) Influenza B (Rapid) Blood Type Antibody Screen 02/14/19 02/14/19 02/14/19 19:17 19:17 19:17 WBC RBC Hgb Hct MCV MCH MCHC RDW Plt Count MPV Absolute Neuts (auto) Total Counted Neutrophils % Neutrophils % (Manual) Band Neutrophils % Lymphocytes % Lymphocytes % (Manual) Monocytes % Monocytes % (Manual) Eosinophils % Eosinophils % (Manual) Basophils % Basophils % (Manual) Nucleated RBC % Platelet Estimate Platelet Comment PT with INR 11.40 INR 0.97 PTT (Actin FS) 21.0 L VBG pH 7.43 H POC VBG pCO2 39.2 POC VBG pO2 60.1 H Mixed VBG HCO3 25.5 H Sodium Potassium Chloride Carbon Dioxide Anion Gap BUN Creatinine Creat Clearance w eGFR Random Glucose Lactic Acid Calcium Phosphorus Magnesium Total Bilirubin AST ALT Alkaline Phosphatase LD Total Creatine Kinase CK-MB (CK-2) Troponin I Total Protein Albumin Urine Color Urine Appearance Urine pH Ur Specific [place] Urine Protein Urine Glucose (UA) Urine Ketones Urine Blood Urine Nitrite Urine Bilirubin Urine Urobilinogen Ur Leukocyte Esterase Urine WBC (Auto) Urine RBC (Auto) Ur Epithelial Cells Urine Mucus Urine HCG, Qual Influenza A (Rapid) Influenza B (Rapid) Blood Type B POSITIVE Antibody Screen Negative 12/24/18 12/24/18 12/25/18 20:01 21:09 05:25 WBC 1.0 L* RBC 3.48 L Hgb 11.4 Hct 33.5 MCV 96.2 H MCH 32.8 MCHC 34.1 RDW 12.3 Plt Count Triage Technician MPV Triage Technician Absolute Neuts (auto) 0.5 L Total Counted 100 Neutrophils % 46.6 D Neutrophils % (Manual) 56.0 Band Neutrophils % 1.0 Lymphocytes % 32.0 D Lymphocytes % (Manual) 38.0 Monocytes % 16.9 H D Monocytes % (Manual) 11 H Eosinophils % 3.5 D Eosinophils % (Manual) 3.0 Basophils % 1.0 Basophils % (Manual) 2.0 Nucleated RBC % 0 Platelet Estimate No Result Required. Platelet Comment Slt plt clumping PT with INR INR PTT (Actin FS) VBG pH POC VBG pCO2 POC VBG pO2 Mixed VBG HCO3 Sodium Potassium Chloride Carbon Dioxide Anion Gap BUN Creatinine Creat Clearance w eGFR Random Glucose Lactic Acid Calcium Phosphorus Magnesium Total Bilirubin AST ALT Alkaline Phosphatase LD Total Creatine Kinase CK-MB (CK-2) Troponin I Total Protein Albumin Urine Color Urine Appearance Urine pH Ur Specific [place] Urine Protein Urine Glucose (UA) Urine Ketones Urine Blood Urine Nitrite Urine Bilirubin Urine Urobilinogen Ur Leukocyte Esterase Urine WBC (Auto) Urine RBC (Auto) Ur Epithelial Cells Urine Mucus Urine HCG, Qual Negative Influenza A (Rapid) Negative Influenza B (Rapid) Negative Blood Type Antibody Screen 12/25/18 05:25 WBC RBC Hgb Hct MCV MCH MCHC RDW Plt Count MPV Absolute Neuts (auto) Total Counted Neutrophils % Neutrophils % (Manual) Band Neutrophils % Lymphocytes % Lymphocytes % (Manual) Monocytes % Monocytes % (Manual) Eosinophils % Eosinophils % (Manual) Basophils % Basophils % (Manual) Nucleated RBC % Platelet Estimate Platelet Comment PT with INR INR PTT (Actin FS) VBG pH POC VBG pCO2 POC VBG pO2 Mixed VBG HCO3 Sodium 140 Potassium 3.4 L Chloride 111 H Carbon Dioxide 25 Anion Gap 4 L BUN 9 Creatinine 0.8 Creat Clearance w eGFR > 60 Random Glucose 71 L Lactic Acid Calcium 7.5 L Phosphorus 3.6 Magnesium 2.1 Total Bilirubin 0.2 AST 21 ALT 10 L Alkaline Phosphatase 49 LD Total Creatine Kinase CK-MB (CK-2) Troponin I Total Protein 6.8 Albumin 2.1 L Urine Color Urine Appearance Urine pH Ur Specific [place] Urine Protein Urine Glucose (UA) Urine Ketones Urine Blood Urine Nitrite Urine Bilirubin Urine Urobilinogen Ur Leukocyte Esterase Urine WBC (Auto) Urine RBC (Auto) Ur Epithelial Cells Urine Mucus Urine HCG, Qual Influenza A (Rapid) Influenza B (Rapid) Blood Type Antibody Screen Active Medications Generic Name Dose Route Start Last Admin Trade Name Freq PRN Reason Stop Dose Admin Atovaquone 1,500 mg 12/25/18 08:00 12/25/18 09:44 Mepron - PO 1,500 mg DAILY@0800 KIERAN Administration Enoxaparin Sodium 40 mg 12/25/18 10:00 12/25/18 09:44 Lovenox - SQ 40 mg DAILY KIERAN Administration Azithromycin 500 mg in 250 mls @ 250 mls/hr 12/25/18 10:00 12/25/18 09:44 Zithromax 500mg Ivpb (Pre-Docked) IVPB 250 mls/hr DAILY KIERAN Administration Sodium Chloride 1,000 mls @ 100 mls/hr 12/24/18 23:45 12/25/18 01:20 Normal Saline - IV 100 mls/hr ASDIR KIERAN Administration Piperacillin Sod/Tazobactam 50 mls @ 100 mls/hr 12/25/18 18:00 Sod 3.375 gm/ Dextrose IVPB Q8H-IV KIERAN Protocol Nystatin 500,000 units 12/25/18 00:00 12/25/18 06:15 Nystatin Oral Suspension - PO 500,000 units Q6HPO KIERAN Administration ASSESSMENT/PLAN: This is a 28 year old female with a history of AIDS, non compliant with medications, last CD4 27 noted ; who presents with lethargy and leukopenia. AIDS Leukopenia Proteinuria Proteinemia -ANC 500 -[id number] -sepsis workup -ID consulted -proteinuria; possible glomerulonephroparthy; would consult nephro; urine protein /cr ratio -work up for proteinemia; SPEP, IPEP, immunofixation,serum immunoglobulin levels for iniital workup up; Dispo: We will continue to follow the patient. Thank you for this consultative opportunity. Visit type - Emergency Visit Emergency Visit: Yes ED Registration Date: 12/24/18 Care time: The patient presented to the Emergency Department on the above date and was hospitalized for further evaluation of their emergent condition. - New Patient This patient is new to me today: Yes Date on this admission: 12/25/18 - Critical Care Critical Care patient: No
--- NOTE | 2018-12-25 16:48 | PN ---
Teaching Attending Note Name of Resident: Fifi Woodruff ATTENDING PHYSICIAN STATEMENT I saw and evaluated the patient. I reviewed the resident's note and discussed the case with the resident. I agree with the resident's findings and plan as documented. SUBJECTIVE: Patient seen and examined 28 year old - non compliant with meds enters with cough, diarrhea, general malaise and leukopenia. ROS no headaches, diplopia, epistaxis, dysphagia, some cough, no SOB no nausea , emesis, some recent diarrhea, no dysuria, hematuria, no musculoskeletal symptoms Last Vital Signs Temp Pulse Resp BP Pulse Ox 98.1 F 64 18 150/100 98 12/25/18 09:00 12/25/18 09:00 12/25/18 10:54 12/25/18 09:00 12/25/18 10:54 HEENT: LISSETH, EOM Intact Oropharynx: thrush, No mucositis Neck: Supple Nodes: Without adenopathy Breasts: Without masses Cor: RSR, No murmurs, No gallops Lungs:scattered rhonchi Abd: Soft, Normal bowel sounds, No organomegaly,RUQ tenderness Ext:No significant edema Skin: No rashes, Integument intact CXray and CT reports reviewed CBC, BMP 12/25/18 05:25 12/25/18 05:25 Current Medications Generic Name Dose Route Start Last Admin Trade Name Freq PRN Reason Stop Dose Admin Atovaquone 1,500 mg 12/25/18 08:00 12/25/18 09:44 Mepron - PO 1,500 mg DAILY@0800 KIERAN Administration Enoxaparin Sodium 40 mg 12/25/18 10:00 12/25/18 09:44 Lovenox - SQ 40 mg DAILY KIERAN Administration Azithromycin 500 mg in 250 mls @ 250 mls/hr 12/25/18 10:00 12/25/18 09:44 Zithromax 500mg Ivpb (Pre-Docked) IVPB 250 mls/hr DAILY KIERAN Administration Sodium Chloride 1,000 mls @ 100 mls/hr 12/24/18 23:45 12/25/18 01:20 Normal Saline - IV 100 mls/hr ASDIR KIERAN Administration Piperacillin Sod/Tazobactam 50 mls @ 100 mls/hr 12/25/18 18:00 Sod 3.375 gm/ Dextrose IVPB Q8H-IV KIERAN Protocol Nystatin 500,000 units 12/25/18 00:00 12/25/18 06:15 Nystatin Oral Suspension - PO 500,000 units Q6HPO KIERAN Administration Tbo-Filgrastim 480 mcg 12/25/18 16:24 Granix - SQ 12/25/18 16:25 ONCE ONE OBJECTIVE: Impresion: AIDS Thrush Abnormal Chest x-ray and CT Leukopenia - ? secondary to AIDS ? secondary to infection, other Reverse albumin/globulin ratio Proteinuria Plan : granix screening tests for other etiologies nystatin work u abnormal a/g ratio Consider renal evaluation ASSESSMENT AND PLAN:
--- NOTE | 2018-12-25 18:20 | PN ---
Teaching Attending Note Name of Resident: Geovanni Perez ATTENDING PHYSICIAN STATEMENT I saw and evaluated the patient. I reviewed the resident's note and discussed the case with the resident. I agree with the resident's findings and plan as documented. SUBJECTIVE: Feels okay, complains of cough and abdominal pain/diarrhea. No fever /chills. No chest pain/palps. OBJECTIVE: Afebrile, Hemodynamically Stable. Last Vital Signs Temp Pulse Resp BP Pulse Ox 98.1 F 64 18 150/100 98 12/25/18 09:00 12/25/18 09:00 12/25/18 10:54 12/25/18 09:00 12/25/18 10:54 HEENT - Atraumatic, Normocephalic Heart - S1, S2, RRR Lungs - clear to auscultation. Abdomen - generalized tenderness. Soft. Bowel Sounds normal. Extremities - no calf swelling/tenderness. Laboratory Results - last 24 hr 12/24/18 12/24/18 12/24/18 16:40 16:40 18:54 WBC RBC Hgb Hct MCV MCH MCHC RDW Plt Count MPV Absolute Neuts (auto) Total Counted Neutrophils % Neutrophils % (Manual) 72.0 Band Neutrophils % 4.0 Lymphocytes % Lymphocytes % (Manual) 18.0 Monocytes % Monocytes % (Manual) 4 Eosinophils % Eosinophils % (Manual) 2.0 Basophils % Basophils % (Manual) 0.0 Nucleated RBC % Platelet Estimate Adequate Platelet Comment PT with INR INR PTT (Actin FS) VBG pH POC VBG pCO2 POC VBG pO2 Mixed VBG HCO3 Sodium 140 Potassium 3.5 Chloride 106 Carbon Dioxide 27 Anion Gap 6 L BUN 12 Creatinine 0.9 Creat Clearance w eGFR > 60 Random Glucose 84 Lactic Acid Calcium 8.3 L Phosphorus Magnesium Total Bilirubin 0.3 AST 22 ALT 14 Alkaline Phosphatase 59 LD Total 270 H Creatine Kinase CK-MB (CK-2) Troponin I Total Protein 8.4 H Albumin 2.8 L Urine Color Nneka Urine Appearance Slcloudy Urine pH 5.0 Ur Specific [place] 1.023 Urine Protein 3+ H Urine Glucose (UA) Negative Urine Ketones Negative Urine Blood Negative Urine Nitrite Negative Urine Bilirubin Negative Urine Urobilinogen 2.0 H Ur Leukocyte Esterase Negative Urine WBC (Auto) None Urine RBC (Auto) None Ur Epithelial Cells Rare Urine Mucus Rare Urine HCG, Qual Influenza A (Rapid) Influenza B (Rapid) Blood Type Antibody Screen 12/24/18 12/24/18 12/24/18 18:54 19:16 19:17 WBC RBC Hgb Hct MCV MCH MCHC RDW Plt Count MPV Absolute Neuts (auto) Total Counted Neutrophils % Neutrophils % (Manual) Band Neutrophils % Lymphocytes % Lymphocytes % (Manual) Monocytes % Monocytes % (Manual) Eosinophils % Eosinophils % (Manual) Basophils % Basophils % (Manual) Nucleated RBC % Platelet Estimate Platelet Comment PT with INR INR PTT (Actin FS) VBG pH POC VBG pCO2 POC VBG pO2 Mixed VBG HCO3 Sodium Potassium Chloride Carbon Dioxide Anion Gap BUN Creatinine Creat Clearance w eGFR Random Glucose Lactic Acid 0.7 Calcium Phosphorus Magnesium Total Bilirubin AST ALT Alkaline Phosphatase LD Total Creatine Kinase 73 CK-MB (CK-2) < 1.0 Troponin I < 0.02 Total Protein Albumin Urine Color Urine Appearance Urine pH Ur Specific [place] Urine Protein Urine Glucose (UA) Urine Ketones Urine Blood Urine Nitrite Urine Bilirubin Urine Urobilinogen Ur Leukocyte Esterase Urine WBC (Auto) Urine RBC (Auto) Ur Epithelial Cells Urine Mucus Urine HCG, Qual Influenza A (Rapid) Influenza B (Rapid) Blood Type Antibody Screen 12/24/18 12/24/18 12/24/18 19:17 19:17 19:17 WBC RBC Hgb Hct MCV MCH MCHC RDW Plt Count MPV Absolute Neuts (auto) Total Counted Neutrophils % Neutrophils % (Manual) Band Neutrophils % Lymphocytes % Lymphocytes % (Manual) Monocytes % Monocytes % (Manual) Eosinophils % Eosinophils % (Manual) Basophils % Basophils % (Manual) Nucleated RBC % Platelet Estimate Platelet Comment PT with INR 11.40 INR 0.97 PTT (Actin FS) 21.0 L VBG pH 7.43 H POC VBG pCO2 39.2 POC VBG pO2 60.1 H Mixed VBG HCO3 25.5 H Sodium Potassium Chloride Carbon Dioxide Anion Gap BUN Creatinine Creat Clearance w eGFR Random Glucose Lactic Acid Calcium Phosphorus Magnesium Total Bilirubin AST ALT Alkaline Phosphatase LD Total Creatine Kinase CK-MB (CK-2) Troponin I Total Protein Albumin Urine Color Urine Appearance Urine pH Ur Specific [place] Urine Protein Urine Glucose (UA) Urine Ketones Urine Blood Urine Nitrite Urine Bilirubin Urine Urobilinogen Ur Leukocyte Esterase Urine WBC (Auto) Urine RBC (Auto) Ur Epithelial Cells Urine Mucus Urine HCG, Qual Influenza A (Rapid) Influenza B (Rapid) Blood Type B POSITIVE Antibody Screen Negative 12/24/18 12/24/18 12/25/18 20:01 21:09 05:25 WBC 1.0 L* RBC 3.48 L Hgb 11.4 Hct 33.5 MCV 96.2 H MCH 32.8 MCHC 34.1 RDW 12.3 Plt Count Hand Knitter MPV Hand Knitter Absolute Neuts (auto) 0.5 L Total Counted 100 Neutrophils % 46.6 D Neutrophils % (Manual) 56.0 Band Neutrophils % 1.0 Lymphocytes % 32.0 D Lymphocytes % (Manual) 38.0 Monocytes % 16.9 H D Monocytes % (Manual) 11 H Eosinophils % 3.5 D Eosinophils % (Manual) 3.0 Basophils % 1.0 Basophils % (Manual) 2.0 Nucleated RBC % 0 Platelet Estimate No Result Required. Platelet Comment Slt plt clumping PT with INR INR PTT (Actin FS) VBG pH POC VBG pCO2 POC VBG pO2 Mixed VBG HCO3 Sodium Potassium Chloride Carbon Dioxide Anion Gap BUN Creatinine Creat Clearance w eGFR Random Glucose Lactic Acid Calcium Phosphorus Magnesium Total Bilirubin AST ALT Alkaline Phosphatase LD Total Creatine Kinase CK-MB (CK-2) Troponin I Total Protein Albumin Urine Color Urine Appearance Urine pH Ur Specific [place] Urine Protein Urine Glucose (UA) Urine Ketones Urine Blood Urine Nitrite Urine Bilirubin Urine Urobilinogen Ur Leukocyte Esterase Urine WBC (Auto) Urine RBC (Auto) Ur Epithelial Cells Urine Mucus Urine HCG, Qual Negative Influenza A (Rapid) Negative Influenza B (Rapid) Negative Blood Type Antibody Screen 12/25/18 05:25 WBC RBC Hgb Hct MCV MCH MCHC RDW Plt Count MPV Absolute Neuts (auto) Total Counted Neutrophils % Neutrophils % (Manual) Band Neutrophils % Lymphocytes % Lymphocytes % (Manual) Monocytes % Monocytes % (Manual) Eosinophils % Eosinophils % (Manual) Basophils % Basophils % (Manual) Nucleated RBC % Platelet Estimate Platelet Comment PT with INR INR PTT (Actin FS) VBG pH POC VBG pCO2 POC VBG pO2 Mixed VBG HCO3 Sodium 140 Potassium 3.4 L Chloride 111 H Carbon Dioxide 25 Anion Gap 4 L BUN 9 Creatinine 0.8 Creat Clearance w eGFR > 60 Random Glucose 71 L Lactic Acid Calcium 7.5 L Phosphorus 3.6 Magnesium 2.1 Total Bilirubin 0.2 AST 21 ALT 10 L Alkaline Phosphatase 49 LD Total Creatine Kinase CK-MB (CK-2) Troponin I Total Protein 6.8 Albumin 2.1 L Urine Color Urine Appearance Urine pH Ur Specific [place] Urine Protein Urine Glucose (UA) Urine Ketones Urine Blood Urine Nitrite Urine Bilirubin Urine Urobilinogen Ur Leukocyte Esterase Urine WBC (Auto) Urine RBC (Auto) Ur Epithelial Cells Urine Mucus Urine HCG, Qual Influenza A (Rapid) Influenza B (Rapid) Blood Type Antibody Screen Current Medications Generic Name Dose Route Start Last Admin Trade Name Freq PRN Reason Stop Dose Admin Atovaquone 1,500 mg 12/25/18 08:00 12/25/18 09:44 Mepron - PO 1,500 mg DAILY@0800 KIERAN Administration Enoxaparin Sodium 40 mg 12/25/18 10:00 12/25/18 09:44 Lovenox - SQ 40 mg DAILY KIERAN Administration Azithromycin 500 mg in 250 mls @ 250 mls/hr 12/25/18 10:00 12/25/18 09:44 Zithromax 500mg Ivpb (Pre-Docked) IVPB 250 mls/hr DAILY KIERAN Administration Sodium Chloride 1,000 mls @ 100 mls/hr 12/24/18 23:45 12/25/18 01:20 Normal Saline - IV 100 mls/hr ASDIR KIERAN Administration Piperacillin Sod/Tazobactam 50 mls @ 100 mls/hr 12/25/18 18:00 Sod 3.375 gm/ Dextrose IVPB Q8H-IV KIERAN Protocol Nystatin 500,000 units 12/25/18 00:00 12/25/18 06:15 Nystatin Oral Suspension - PO 500,000 units Q6HPO KIERAN Administration Tbo-Filgrastim 480 mcg 12/25/18 16:24 Granix - SQ 12/25/18 16:25 ONCE ONE ASSESSMENT/PLAN 28 year old female with Asthma, HIV/AIDS (not well compliant with HAART therapy) , presented with cough, hemoptysis, abdominal pain, diarrhea, ongoing for weeks to months. 1. Leukopenia/Neutropenia secondary to AIDS - poorly compliant with HAART Reported Cough and abdominal pain/diarrhea - no clear infective source CXR - no infiltrate CT A/P - no acute intra-abdominal process, bilateral inguinal LNs Flu neg Urine legionella negative Blood Cx pending Sputum Cx - gram pos cocci in chains CT Chest pending Empirically on IV Azitho and Zosyn Placed on Isolation to rule out TB - for AFB X 3. Quantiferon Gold requested. PCP Px with Atorvaquone (allergic to Bactrim) ID following Hematology evaluated for Neutropenia - recommend Granix. 2. Oral thrush sec to AIDS - continue Nystatin 3. Chronic Diarrhea - Stool Cx/Cdiff/Cyptosporidia pending. DVT Px - Lovenox
[2018-12-25] MEDS ORDERED: TBO-FILGRASTIM 480 MCG/0.8 ML DISP.SYRIN SQ ONE (22:15)
[2018-12-26] MEDS: NYSTATIN 500,000 UNITS/5 ML SUSPENSION PO SCH ×4 (00:10→17:34)
[2018-12-26] MEDS ORDERED: DEXTROSE 5%-WATER - 50 ML IVPB ONE ×3 (01:37→19:14)
[2018-12-26] MEDS ORDERED: PIPERACILLIN/TAZOBACTAM 3.375 GM VIAL IVPB ONE ×3 (01:37→19:14)
[2018-12-26] MEDS: PIPERACILLIN/TAZOB 3.375 GM 3.375 GM in DEXTROSE 5%-WATER - 50 ML IVPB SCH ×3 (01:56→19:19)
[2018-12-26] MEDS ORDERED: PT OWN MED DRAWER 7, Y5N ONE ×2 (07:49→17:12)
--- NOTE | 2018-12-26 08:18 | PN ---
Physical Exam: SUBJECTIVE: Patient seen and examined at bedside. Patient has no new complaints ; is asking to shower. OBJECTIVE: Vital Signs Period Temp Pulse Resp BP Sys/Manriquez Pulse Ox Last 24 Hr 97.8 F-98.3 F 62-68 18-20 146-154/92-100 98 GENERAL: The patient is awake, alert, and fully oriented, in no acute distress. HEAD: Normal with no signs of trauma. NECK: Trachea midline, full range of motion, supple. LUNGS: Breath sounds equal, clear to auscultation bilaterally, no wheezes, no crackles, no accessory muscle use. HEART: Regular rate and rhythm, S1, S2 without murmur, rub or gallop. ABDOMEN: Soft, nondistended, normoactive bowel sounds, no guarding, no rebound, no hepatosplenomegaly, no masses. There is tenderness to palpation in the left lower quadrant EXTREMITIES: 2+ pulses, warm, well-perfused, no edema. NEUROLOGICAL: Cranial nerves II through X grossly intact. Normal speech, gait not observed. SKIN: Warm, dry, normal turgor, no rashes or lesions noted Laboratory Results - last 24 hr 12/24/18 12/25/18 18:54 05:25 Plt Count Junior Designer MPV Junior Designer Total Counted 100 Neutrophils % (Manual) 56.0 Band Neutrophils % 1.0 Lymphocytes % (Manual) 38.0 Monocytes % (Manual) 11 H Eosinophils % (Manual) 3.0 Basophils % (Manual) 2.0 Platelet Estimate No Result Required. Platelet Comment Slt plt clumping Lactic Acid 0.7 Active Medications Generic Name Dose Route Start Last Admin Trade Name Lawrence PRN Reason Stop Dose Admin Atovaquone 1,500 mg 12/25/18 08:00 12/25/18 09:44 Mepron - PO 1,500 mg DAILY@0800 KIERAN Administration Enoxaparin Sodium 40 mg 12/25/18 10:00 12/25/18 09:44 Lovenox - SQ 40 mg DAILY KIERAN Administration Azithromycin 500 mg in 250 mls @ 250 mls/hr 12/25/18 10:00 12/25/18 09:44 Zithromax 500mg Ivpb (Pre-Docked) IVPB 250 mls/hr DAILY KIERAN Administration Sodium Chloride 1,000 mls @ 100 mls/hr 12/24/18 23:45 12/25/18 01:20 Normal Saline - IV 100 mls/hr ASDIR KIERAN Administration Piperacillin Sod/Tazobactam 50 mls @ 100 mls/hr 12/25/18 18:00 12/26/18 01:56 Sod 3.375 gm/ Dextrose IVPB 100 mls/hr Q8H-IV KIERAN Administration Protocol Nystatin 500,000 units 12/25/18 00:00 12/26/18 06:07 Nystatin Oral Suspension - PO 500,000 units Q6HPO KIERAN Administration ASSESSMENT/PLAN: 28 y/o F w/ PMHx asthma, HIV+ w/ AIDS-defining complications, p/w cough productive of brown sputum, fatigue, weakness, diarrhea x 2-3 weeks #opportunistic infection 2/2 HIV -WBC 2.5, ANC 2,000 today -Chest CT ordered, still pending -ID (Dr. Yañez) consulted. Recommendations appreciated. -f/u Urine legionella, urine culture -standard and AFB sputum Cx x1 collected -will need two more sputum samples for AFB -standard and mycobacterial BCx -Stool Cx and stool cryptosporidium antigens pending -CMV PCR -Cryptococcal antigens pending -Quantiferon pending -empiric Tx of unspecified infectious illness and PCP PPx: Zosyn, IV Azithromycin, atovaquone -neutropenic and airborne isolation #HTN -BP 160/120 -gave norvasc 5mg once -decreased fluids -will monitor BP #Oral thrush -improving -Nystatin swish and swallow #Neutropenia -s/p granix per heme-onc -WBC improved from 1 to 2.5 -neutropenic isolation -neutropenic diet -will continue to monitor -heme consult placed (Dr. Garcia) for consideration of Neupogen #FEN -Decreased IVF from 100 to 50 -monitor and correct electrolytes -Neutropenic diet #PPx -DVT: Lovenox 40mg sq daily -GI: not indicated -PCP: atovaquone, IV azithro #code -full #disposition -med/surg under neutropenic/TB isolation Visit type - Emergency Visit Emergency Visit: Yes ED Registration Date: 12/24/18 Care time: The patient presented to the Emergency Department on the above date and was hospitalized for further evaluation of their emergent condition. - New Patient This patient is new to me today: Yes Date on this admission: 12/26/18 - Critical Care Critical Care patient: No - Discharge Referral Referred to [facility] No
[2018-12-26] MEDS: ATOVAQUONE 750 MG/5 ML (UNIT-DOSE PACKAGING) PO SCH (08:23)
[2018-12-26 08:48] LABS: BASO % 1.4 % (0-2.0); EOS % 1.4 % (0-4.5); HEMOGLOBIN 11.5 GM/dL (10.7-15.3); LYMPH % 12.8 % (8-40); MCH 33.3 pg (25.7-33.7); MCHC 34.8 g/dl (32.0-36.0); MEAN CELL VOLUME 95.5 fl (80-96); MONO % 6.8 % (3.8-10.2); NEUT % 77.6 % (42.8-82.8); PLATELET COUNT 121 K/MM3 (134-434); RBC 3.45 M/mm3 (3.60-5.2); RDW 12.2 % (11.6-15.6); WHITE BLOOD COUNT 2.5 K/mm3 (4.0-10.0)
[2018-12-26 09:33] LABS: ANION GAP 8 MMOL/L (8-16); BLOOD UREA NITROGEN 7 mg/dL (7-18); CALCIUM 7.8 mg/dL (8.5-10.1); CHLORIDE 111 mmol/L (98-107); CO2 23 mmol/L (21-32); CREATININE 0.9 mg/dL (0.55-1.3); GLUCOSE,RANDOM 68 mg/dL (74-106); MAGNESIUM 1.7 mg/dL (1.8-2.4); PHOSPHOROUS 3.5 mg/dL (2.5-4.9); POTASSIUM 3.6 mmol/L (3.5-5.1); SODIUM 141 mmol/L (136-145)
[2018-12-26] MEDS: ENOXAPARIN NA (PORCINE) 40 MG/0.4 ML DISP.SYRIN SQ SCH (09:55)
[2018-12-26] MEDS: AZITHROMYCIN IVPB 500 MG/250 ML BAG IVPB SCH (10:28)
[2018-12-26] MEDS ORDERED: amLODIPine BESYLATE 5 MG TABLET (FP) PO ONE (10:32)
[2018-12-26] MEDS ORDERED: SODIUM CHLORIDE 1,000 ML IV SCH (10:45)
[2018-12-26 10:51] LABS: RATIO URIN PROTEIN/URIN CREAT 2.02 MG/DL
--- NOTE | 2018-12-26 13:01 | PN ---
Progress Note (short form) - Note Progress Note: feels better today no diarrhea less abdominal pain less cough Vital Signs Period Temp Pulse Resp BP Sys/Manriquez Pulse Ox Last 24 Hr 97.8 F-98.3 F 62-68 20-20 146-154/92-103 cor-rrr llungs decreased bs at bases abd soft,nt ext no edema CBC, BMP 12/26/18 06:00 12/26/18 06:00 Microbiology 12/26/18 08:30 Stool Microsporidia Stain - Preliminary 12/24/18 19:17 Sputum - Expectorated Gram Stain - Final 12/24/18 19:17 Sputum - Expectorated Sputum Culture - Preliminary NORMAL RESPIRATORY CHRISS 12/24/18 18:54 Urine - Urine Clean Catch Urine Culture - Final Contaminated: Please Repeat 12/24/18 19:29 Blood - Peripheral Venous Blood Culture - Preliminary NO GROWTH OBTAINED AFTER 24 HOURS, INCUBATION TO CONTINUE FOR 4 DAYS. 12/24/18 19:16 Blood - Peripheral Venous Blood Culture - Preliminary NO GROWTH OBTAINED AFTER 24 HOURS, INCUBATION TO CONTINUE FOR 4 DAYS. 12/25/18 11:05 Serum Cryptococcal Antigen - Preliminary 12/25/18 11:05 Blood - Peripheral Venous Mycobacterial Culture - Preliminary 12/24/18 18:57 Sputum - Expectorated AFB Smear Concentration - Preliminary 12/24/18 18:57 Sputum - Expectorated Direct Acid Fast Bacilli Smear - Final 12/24/18 18:57 Sputum - Expectorated Mycobacterial Culture - Preliminary 12/24/18 21:09 Urine For Antigen Detection Legionella Antigen - Final Current Medications Atovaquone (Mepron -) 1,500 mg PO DAILY@0800 [facility] Last Admin: 12/26/18 08:23 Dose: 1,500 mg Enoxaparin Sodium (Lovenox -) 40 mg SQ DAILY [facility] Last Admin: 12/26/18 09:55 Dose: 40 mg Azithromycin (Zithromax 500mg Ivpb (Pre-Docked)) 500 mg in 250 mls @ 250 mls/ hr IVPB DAILY [facility] Last Admin: 12/26/18 10:28 Dose: 250 mls/hr Piperacillin Sod/Tazobactam (Sod 3.375 gm/ Dextrose) 50 mls @ 100 mls/hr IVPB Q8H-IV KIERAN; Protocol Last Admin: 12/26/18 09:53 Dose: 100 mls/hr Sodium Chloride (Normal Saline -) 1,000 mls @ 50 mls/hr IV ASDIR [facility] Stop: 12/27/18 06:44 Nystatin (Nystatin Oral Suspension -) 500,000 units PO Q6HPO [facility] Last Admin: 12/26/18 11:58 Dose: 500,000 units a/p AIDS neutropenia improved reports fevers at home (none here) abdominal pain and intermittent diarrhea-improved cough for months r/o TB-chest ct, isolation, sputum afb and sputum culture r/o bacterial vs cryptosporiadial gastroenteritis r/o cmv- no visual changes but will get pcr blood afb crytococcal antigen (chronic headaches) zosyn/zith for now chest ct still pending- spoke with RN nystatin for thrush clinically improved Problem List - Problems (1) AIDS (acquired immunodeficiency syndrome), CD4 <=200 Code(s): B20 - HUMAN IMMUNODEFICIENCY VIRUS [HIV] DISEASE (2) 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
[2018-12-26] MEDS: ACETAMINOPHEN 325 MG TABLET (FP) PO PRN (16:11)
--- NOTE | 2018-12-26 19:37 | PN ---
Teaching Attending Note Name of Resident: Jonathan Escobar ATTENDING PHYSICIAN STATEMENT I saw and evaluated the patient. I reviewed the resident's note and discussed the case with the resident. I agree with the resident's findings and plan as documented. SUBJECTIVE: Feels better - cough and diarrhea improved. Normal BM this am. No fever/chills. No chest pain/palps. OBJECTIVE: Afebrile, Hemodynamically Stable. Last Vital Signs Temp Pulse Resp BP Pulse Ox 98.4 F 80 20 152/100 98 12/26/18 17:07 12/26/18 17:07 12/26/18 17:07 12/26/18 17:07 12/25/18 10:54 HEENT - Atraumatic, Normocephalic Heart - S1, S2, RRR Lungs - clear to auscultation. Abdomen - generalized tenderness. Soft. Bowel Sounds normal. Extremities - no calf swelling/tenderness. Neuro - AAO x 3. Tone/Power normal all 4 extremities. Laboratory Results - last 24 hr 12/26/18 12/26/18 12/26/18 06:00 06:00 06:00 WBC 2.5 L RBC 3.45 L Hgb 11.5 Hct 33.0 MCV 95.5 MCH 33.3 MCHC 34.8 RDW 12.2 Plt Count 121 L MPV 9.0 Absolute Neuts (auto) 2.0 Neutrophils % 77.6 D Lymphocytes % 12.8 D Monocytes % 6.8 Eosinophils % 1.4 Basophils % 1.4 Nucleated RBC % 0 Sodium 141 Potassium 3.6 Chloride 111 H Carbon Dioxide 23 Anion Gap 8 BUN 7 Creatinine 0.9 Creat Clearance w eGFR > 60 Random Glucose 68 L Calcium 7.8 L Phosphorus 3.5 Magnesium 1.7 L Vitamin B12 411 Serum Folate 16 TSH 1.96 U Random Total Protein Urine Creatinine Protein/Creatinin Ratio 12/26/18 08:30 WBC RBC Hgb Hct MCV MCH MCHC RDW Plt Count MPV Absolute Neuts (auto) Neutrophils % Lymphocytes % Monocytes % Eosinophils % Basophils % Nucleated RBC % Sodium Potassium Chloride Carbon Dioxide Anion Gap BUN Creatinine Creat Clearance w eGFR Random Glucose Calcium Phosphorus Magnesium Vitamin B12 Serum Folate TSH U Random Total Protein 117.4 H Urine Creatinine 58.0 Protein/Creatinin Ratio 2.020 Current Medications Generic Name Dose Route Start Last Admin Trade Name Freq PRN Reason Stop Dose Admin Acetaminophen 650 mg 12/26/18 15:55 12/26/18 16:11 Tylenol - PO 650 mg Q6H PRN Administration PAIN LEVEL 7 - 10 Atovaquone 1,500 mg 12/25/18 08:00 12/26/18 08:23 Mepron - PO 1,500 mg DAILY@0800 KIERAN Administration Enoxaparin Sodium 40 mg 12/25/18 10:00 12/26/18 09:55 Lovenox - SQ 40 mg DAILY KIERAN Administration Azithromycin 500 mg in 250 mls @ 250 mls/hr 12/25/18 10:00 12/26/18 10:28 Zithromax 500mg Ivpb (Pre-Docked) IVPB 250 mls/hr DAILY KIERAN Administration Piperacillin Sod/Tazobactam 50 mls @ 100 mls/hr 12/25/18 18:00 12/26/18 19:19 Sod 3.375 gm/ Dextrose IVPB 100 mls/hr Q8H-IV KIERAN Administration Protocol Sodium Chloride 1,000 mls @ 50 mls/hr 12/26/18 10:45 12/26/18 13:11 Normal Saline - IV 12/27/18 06:44 50 mls/hr ASDIR KIERAN Administration Nystatin 500,000 units 12/25/18 00:00 12/26/18 17:34 Nystatin Oral Suspension - PO 500,000 units Q6HPO KIERAN Administration ASSESSMENT/PLAN 28 year old female with Asthma, HIV/AIDS (not well compliant with HAART therapy) , presented with cough, hemoptysis, abdominal pain, diarrhea, ongoing for weeks to months. 1. Leukopenia/Neutropenia secondary to AIDS - poorly compliant with HAART - Neutropenia resolved s/p Granix. Reported Cough and abdominal pain/diarrhea - no clear infective source for neutropenia - now resolving CXR - no infiltrate CT A/P - no acute intra-abdominal process, bilateral inguinal LNs Still awaiting CT Chest - radiology called. Flu neg Urine legionella negative Blood Cx negative Sputum Cx - gram pos cocci in chains, awaiting final ID and sens Stool Cdiff neg Stool Crypto neg, Microsporidia pending Cryptococcal Ag and Mycobacterial Cx pending. Empirically on IV Azitho and Zosyn Placed on Isolation to rule out TB - for AFB X 3. Quantiferon Gold pending. PCP Px with Atorvaquone (allergic to Bactrim) ID following - CD 4 count pending and infection work-up negative so far. Hematology evaluated for Neutropenia - recommend Granix. Serum electrophoresis pending. 2. Oral thrush sec to AIDS - continue Nystatin 3. Chronic Diarrhea - appears to be improving. Work-up as above. DVT Px - Lovenox
[2018-12-27] MEDS: NYSTATIN 500,000 UNITS/5 ML SUSPENSION PO SCH ×4 (00:55→18:11)
[2018-12-27] MEDS ORDERED: DEXTROSE 5%-WATER - 50 ML IVPB ONE ×3 (01:50→17:05)
[2018-12-27] MEDS ORDERED: PIPERACILLIN/TAZOBACTAM 3.375 GM VIAL IVPB ONE ×3 (01:50→17:05)
[2018-12-27] MEDS: ACETAMINOPHEN 325 MG TABLET (FP) PO PRN (02:20)
[2018-12-27] MEDS: PIPERACILLIN/TAZOB 3.375 GM 3.375 GM in DEXTROSE 5%-WATER - 50 ML IVPB SCH ×3 (02:56→18:11)
[2018-12-27 08:08] LABS: IGA IMMUNOGLOBULIN 417 mg/dL (87-352); IGM IMMUNOGLOBULIN 113 mg/dL (26-217)
--- NOTE | 2018-12-27 09:52 | PN ---
Progress Note (short form) - Note Progress Note: feels better today cough and diarrhea resolving abdominal pain resolved Vital Signs Period Temp Pulse Resp BP Sys/Manriquez Pulse Ox Last 24 Hr 98.2 F-98.5 F 65-92 18-20 132-155/75-112 96 cor-rrr lungs decreased bs at bses abd soft,nt ext no edema CBC, BMP 12/26/18 06:00 12/26/18 06:00 Microbiology 12/24/18 19:17 Sputum - Expectorated Gram Stain - Final 12/24/18 19:17 Sputum - Expectorated Sputum Culture - Final Yeast Like Organism 12/24/18 19:29 Blood - Peripheral Venous Blood Culture - Preliminary NO GROWTH OBTAINED AFTER 48 HOURS, INCUBATION TO CONTINUE FOR 3 DAYS. 12/24/18 19:16 Blood - Peripheral Venous Blood Culture - Preliminary NO GROWTH OBTAINED AFTER 48 HOURS, INCUBATION TO CONTINUE FOR 3 DAYS. 12/24/18 18:57 Sputum - Expectorated AFB Smear Concentration - Preliminary 12/24/18 18:57 Sputum - Expectorated Direct Acid Fast Bacilli Smear - Final 12/24/18 18:57 Sputum - Expectorated Mycobacterial Culture - Preliminary 12/26/18 10:15 Stool Clostridium difficile Antigen (EFFIE) - Final 12/26/18 10:15 Stool Clostridium difficile Toxin Assay - Final 12/26/18 10:14 Stool Cryptosporidium Antigen - Final 12/26/18 10:14 Stool Giardia Antigen (EFFIE) - Final 12/26/18 08:30 Stool Microsporidia Stain - Preliminary 12/24/18 18:54 Urine - Urine Clean Catch Urine Culture - Final Contaminated: Please Repeat 12/25/18 11:05 Serum Cryptococcal Antigen - Preliminary 12/25/18 11:05 Blood - Peripheral Venous Mycobacterial Culture - Preliminary 12/24/18 21:09 Urine For Antigen Detection Legionella Antigen - Final a/p AIDS neutropenia improved reports fevers at home (none here) abdominal pain and intermittent diarrhea-improved cough for months r/o TB-chest ct, isolation, sputum afb and sputum culture r/o bacterial vs cryptosporiadial gastroenteritis r/o cmv- no visual changes but will get pcr blood afb crytococcal antigen (chronic headaches) zosyn/zith for now chest ct still pending- spoke with RN nystatin for thrush clinically improved f/marci labs, f/u chest ct d/w hospitalist clinically improved Problem List - Problems (1) AIDS (acquired immunodeficiency syndrome), CD4 <=200 Code(s): B20 - HUMAN IMMUNODEFICIENCY VIRUS [HIV] DISEASE (2) 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
[2018-12-27] MEDS ORDERED: PT OWN MED DRAWER 7, Y5N ONE (10:04)
[2018-12-27] MEDS: ATOVAQUONE 750 MG/5 ML (UNIT-DOSE PACKAGING) PO SCH (10:16)
[2018-12-27] MEDS: ENOXAPARIN NA (PORCINE) 40 MG/0.4 ML DISP.SYRIN SQ SCH (10:16)
[2018-12-27] MEDS: AZITHROMYCIN IVPB 500 MG/250 ML BAG IVPB SCH (10:17)
[2018-12-27 12:37] LABS: HEMATOCRIT 32.6 % (32.4-45.2); HEMOGLOBIN 11.5 GM/dL (10.7-15.3); MCH 33.8 pg (25.7-33.7); MCHC 35.3 g/dl (32.0-36.0); MEAN CELL VOLUME 95.8 fl (80-96); MEAN PLT VOLUME 9.9 fl (7.5-11.1); PLATELET COUNT 103 K/MM3 (134-434); RDW 12.4 % (11.6-15.6); WHITE BLOOD COUNT 16.7 K/mm3 (4.0-10.0)
[2018-12-27 12:55] LABS: ANION GAP 7 MMOL/L (8-16); BLOOD UREA NITROGEN 6 mg/dL (7-18); CHLORIDE 110 mmol/L (98-107); CO2 27 mmol/L (21-32); GLUCOSE,RANDOM 65 mg/dL (74-106); MAGNESIUM 1.3 mg/dL (1.8-2.4); PHOSPHOROUS 3.4 mg/dL (2.5-4.9); POTASSIUM 3.3 mmol/L (3.5-5.1); SODIUM 144 mmol/L (136-145)
--- NOTE | 2018-12-27 19:44 | PN ---
Progress Note (short form) - Note Progress Note: SUBJECTIVE: Feels better - cough and diarrhea improved. Feels much better. No fever/chills. No chest pain/palps. OBJECTIVE: Afebrile, Hemodynamically Stable. Last Vital Signs Temp Pulse Resp BP Pulse Ox 98.2 F 85 18 139/95 96 12/27/18 10:00 12/27/18 10:00 12/27/18 10:00 12/27/18 10:00 12/27/18 09:00 HEENT - Atraumatic, Normocephalic Heart - S1, S2, RRR Lungs - clear to auscultation. Abdomen - generalized tenderness. Soft. Bowel Sounds normal. Extremities - no calf swelling/tenderness. Neuro - AAO x 3. Tone/Power normal all 4 extremities. Laboratory Results - last 24 hr 12/26/18 12/26/18 12/26/18 06:00 06:00 06:00 WBC 3.0 L RBC Hgb Hct MCV MCH MCHC RDW Plt Count MPV Absolute Lymphs (auto) 0.4 L Lymphocytes 13 Nucleated RBCs TNP Sodium Potassium Chloride Carbon Dioxide Anion Gap BUN Creatinine Creat Clearance w eGFR Random Glucose Calcium Phosphorus Magnesium IgG 2087 H 2166 H IgA 417 H IgM 113 Absolute CD3 Count 258 L % CD3+ Lymphocytes 64.6 Absolute CD4 [place] 28 L % CD4+ Lymphocyte 6.9 L CD4/CD8 Ratio 0.13 L % CD8+ Lymphocyte 54.2 H Absolute CD8 Count 217 12/27/18 12/27/18 11:30 11:30 WBC 16.7 H RBC 3.40 L Hgb 11.5 Hct 32.6 MCV 95.8 MCH 33.8 H MCHC 35.3 RDW 12.4 Plt Count 103 L MPV 9.9 Absolute Lymphs (auto) Lymphocytes Nucleated RBCs Sodium 144 Potassium 3.3 L Chloride 110 H Carbon Dioxide 27 Anion Gap 7 L BUN 6 L Creatinine 1.0 Creat Clearance w eGFR > 60 Random Glucose 65 L Calcium 8.0 L Phosphorus 3.4 Magnesium 1.3 L IgG IgA IgM Absolute CD3 Count % CD3+ Lymphocytes Absolute CD4 [place] % CD4+ Lymphocyte CD4/CD8 Ratio % CD8+ Lymphocyte Absolute CD8 Count Current Medications Generic Name Dose Route Start Last Admin Trade Name Freq PRN Reason Stop Dose Admin Acetaminophen 650 mg 12/26/18 15:55 12/27/18 02:20 Tylenol - PO 650 mg Q6H PRN Administration PAIN LEVEL 7 - 10 Atovaquone 1,500 mg 12/25/18 08:00 12/27/18 10:16 Mepron - PO 1,500 mg DAILY@0800 KIERAN Administration Enoxaparin Sodium 40 mg 12/25/18 10:00 12/27/18 10:16 Lovenox - SQ 40 mg DAILY KIERAN Administration Azithromycin 500 mg in 250 mls @ 250 mls/hr 12/25/18 10:00 12/27/18 10:17 Zithromax 500mg Ivpb (Pre-Docked) IVPB 250 mls/hr DAILY KIERAN Administration Piperacillin Sod/Tazobactam 50 mls @ 100 mls/hr 12/25/18 18:00 12/27/18 18:11 Sod 3.375 gm/ Dextrose IVPB 100 mls/hr Q8H-IV KIERAN Administration Protocol Nystatin 500,000 units 12/25/18 00:00 12/27/18 18:11 Nystatin Oral Suspension - PO 500,000 units Q6HPO KIERAN Administration ASSESSMENT/PLAN 28 year old female with Asthma, HIV/AIDS (not well compliant with HAART therapy) , presented with cough, hemoptysis, abdominal pain, diarrhea, ongoing for weeks to months. 1. Leukopenia/Neutropenia secondary to AIDS - poorly compliant with HAART - Neutropenia resolved s/p Granix (recommended by Hematology)- currently with resulting Leukocytosis. Reported Cough and abdominal pain/diarrhea - no clear infective source for neutropenia - now resolved CXR - no infiltrate CT A/P - no acute intra-abdominal process, bilateral inguinal LNs Still awaiting CT Chest report Flu neg Urine legionella negative Blood Cx negative Sputum Cx - gram pos cocci in chains, awaiting final ID and sens Stool Cdiff neg Stool Crypto neg, Microsporidia pending Urine Cx - contaminated, repeat Urine Cx pending. Cryptococcal Ag and Mycobacterial Cx pending. Empirically on IV Azitho and Zosyn - continue as per ID Placed on Isolation to rule out TB - AFB neg x 2, 3rd AFB pending. Quant Gold pending. PCP Px with Atorvaquone (allergic to Bactrim) ID following - CD 4 count pending and infection work-up negative so far. 2. Oral thrush sec to AIDS - continue Nystatin 3. Chronic Diarrhea - appears to be improving. Work-up as above. 4. Hypomagnesemia/Hypokalemia - repleted. DVT Px - Lovenox - platelets dropping slightly, will DC Lovenox if Plts < 100 Visit type - Emergency Visit Emergency Visit: Yes ED Registration Date: 12/24/18 Care time: The patient presented to the Emergency Department on the above date and was hospitalized for further evaluation of their emergent condition. - New Patient This patient is new to me today: No - Critical Care Critical Care patient: No - Discharge Referral Referred to [facility] Med P.C.: No
[2018-12-27] MEDS ORDERED: MAGNESIUM SULF 50% (8.12 MEQ/2 ML-1 GM VIAL) IVPB ONE (20:15)
[2018-12-27] MEDS ORDERED: POTASSIUM CHLORIDE TABS 20 MEQ TABLET.ER (FP) PO ONE (20:15)
[2018-12-28] MEDS: NYSTATIN 500,000 UNITS/5 ML SUSPENSION PO SCH ×3 (01:35→14:31)
[2018-12-28] MEDS: PIPERACILLIN/TAZOB 3.375 GM 3.375 GM in DEXTROSE 5%-WATER - 50 ML IVPB SCH ×2 (02:14→09:24)
[2018-12-28] MEDS ORDERED: PIPERACILLIN/TAZOBACTAM 3.375 GM VIAL IVPB ONE ×2 (03:09→09:20)
[2018-12-28] MEDS ORDERED: DEXTROSE 5%-WATER - 50 ML IVPB ONE ×2 (03:09→09:20)
[2018-12-28 07:24] LABS: BASO % 0.3 % (0-2.0); EOS % 0.6 % (0-4.5); HEMATOCRIT 33.7 % (32.4-45.2); HEMOGLOBIN 11.6 GM/dL (10.7-15.3); MCH 32.7 pg (25.7-33.7); MCHC 34.4 g/dl (32.0-36.0); MEAN PLT VOLUME 9.9 fl (7.5-11.1); MONO % 3.1 % (3.8-10.2); PLATELET COUNT 113 K/MM3 (134-434); RBC 3.54 M/mm3 (3.60-5.2); RDW 12.4 % (11.6-15.6); WHITE BLOOD COUNT 11.1 K/mm3 (4.0-10.0)
[2018-12-28 07:45] LABS: ANION GAP 5 MMOL/L (8-16); BLOOD UREA NITROGEN 5 mg/dL (7-18); CALCIUM 8.1 mg/dL (8.5-10.1); CHLORIDE 112 mmol/L (98-107); CO2 27 mmol/L (21-32); GLUCOSE,RANDOM 74 mg/dL (74-106); MAGNESIUM 2.4 mg/dL (1.8-2.4); POTASSIUM 3.7 mmol/L (3.5-5.1); SODIUM 144 mmol/L (136-145)
[2018-12-28] MEDS ORDERED: PT OWN MED DRAWER 7, Y5N ONE ×3 (07:54→14:27)
[2018-12-28] MEDS: ENOXAPARIN NA (PORCINE) 40 MG/0.4 ML DISP.SYRIN SQ SCH (09:25)
[2018-12-28] MEDS: ATOVAQUONE 750 MG/5 ML (UNIT-DOSE PACKAGING) PO SCH (09:25)
--- NOTE | 2018-12-28 09:45 | PN ---
Progress Note (short form) - Note Progress Note: Patient seen and examined \Clinically improved Last Vital Signs Temp Pulse Resp BP Pulse Ox 98.2 F 62 20 149/98 96 12/28/18 06:00 12/28/18 06:00 12/28/18 06:00 12/28/18 06:00 12/27/18 09:00 HEENT: LISSETH, EOM Intact Oropharynx: thrush, No mucositis Cor: RSR, No murmurs, No gallops Lungs: poor inspiratory effort and diminished breath sounds bilaterally Abd: Soft, Normal bowel sounds, No organomegaly Ext:No significant edema Skin: No rashes, Integument intact CBC, BMP 12/28/18 06:20 12/28/18 06:20 Current Medications Generic Name Dose Route Start Last Admin Trade Name Freq PRN Reason Stop Dose Admin Acetaminophen 650 mg 12/26/18 15:55 12/27/18 02:20 Tylenol - PO 650 mg Q6H PRN Administration PAIN LEVEL 7 - 10 Atovaquone 1,500 mg 12/25/18 08:00 12/28/18 09:25 Mepron - PO 1,500 mg DAILY@0800 KIERAN Administration Enoxaparin Sodium 40 mg 12/25/18 10:00 12/28/18 09:25 Lovenox - SQ 40 mg DAILY KIERAN Administration Azithromycin 500 mg in 250 mls @ 250 mls/hr 12/25/18 10:00 12/27/18 10:17 Zithromax 500mg Ivpb (Pre-Docked) IVPB 250 mls/hr DAILY KIERAN Administration Piperacillin Sod/Tazobactam 50 mls @ 100 mls/hr 12/25/18 18:00 12/28/18 09:24 Sod 3.375 gm/ Dextrose IVPB 100 mls/hr Q8H-IV KIERAN Administration Protocol Nystatin 500,000 units 12/25/18 00:00 12/28/18 06:19 Nystatin Oral Suspension - PO 500,000 units Q6HPO KIERAN Administration Impression HIV Leukopenia- resolved after one dose on G-CSF? infectious, ? HIV, ? other- normal B-12, folate, TSH Abnormal Chest CT Thrush Hyperglobulinemia Thrombocytopenia Plan ID following Protein studies pending ( increasd IgG and IgA) )
[2018-12-28 09:48] LABS: ANISOCYTOSIS 0; MACROCYTOSIS 0; PLATELET ESTIMATE DECREASED
--- NOTE | 2018-12-28 11:59 | PN ---
Progress Note (short form) - Note Progress Note: feels well Vital Signs Period Temp Pulse Resp BP Sys/Manriquez Pulse Ox Last 24 Hr 98.0 F-98.2 F 62-74 20-20 146-149/98-108 cor-rrr lungs clear abd soft,nt ext no edema CBC, BMP 12/28/18 06:20 12/28/18 06:20 Microbiology 12/27/18 18:00 Sputum - Expectorated Direct Acid Fast Bacilli Smear - Final 12/27/18 01:50 Urine - Urine Clean Catch Urine Culture - Final NO GROWTH OBTAINED 12/24/18 19:29 Blood - Peripheral Venous Blood Culture - Preliminary NO GROWTH OBTAINED AFTER 72 HOURS, INCUBATION TO CONTINUE FOR 2 DAYS. 12/24/18 19:16 Blood - Peripheral Venous Blood Culture - Preliminary NO GROWTH OBTAINED AFTER 72 HOURS, INCUBATION TO CONTINUE FOR 2 DAYS. 12/26/18 11:30 Sputum - Expectorated Direct Acid Fast Bacilli Smear - Final 12/24/18 18:57 Sputum - Expectorated AFB Smear Concentration - Final 12/24/18 18:57 Sputum - Expectorated Direct Acid Fast Bacilli Smear - Final 12/24/18 18:57 Sputum - Expectorated Mycobacterial Culture - Preliminary 12/24/18 19:17 Sputum - Expectorated Gram Stain - Final 12/24/18 19:17 Sputum - Expectorated Sputum Culture - Final Yeast Like Organism 12/26/18 10:15 Stool Clostridium difficile Antigen (EFFIE) - Final 12/26/18 10:15 Stool Clostridium difficile Toxin Assay - Final 12/26/18 10:14 Stool Cryptosporidium Antigen - Final 12/26/18 10:14 Stool Giardia Antigen (EFFIE) - Final 12/26/18 08:30 Stool Microsporidia Stain - Preliminary 12/24/18 18:54 Urine - Urine Clean Catch Urine Culture - Final Contaminated: Please Repeat 12/25/18 11:05 Serum Cryptococcal Antigen - Preliminary 12/25/18 11:05 Blood - Peripheral Venous Mycobacterial Culture - Preliminary 12/24/18 21:09 Urine For Antigen Detection Legionella Antigen - Final a/p AIDS neutropenia resolved cough resolved diarrhea and abdominal pain resolved chest ct reviewed- no infiltrate no objection to d/c home off antibiotics would resume ART descovy 1 tab daily prezcobix 1 tab daily mepron 1500 mg daily (pcp)prophylaxis to f/u at the [facility] this week Problem List - Problems (1) AIDS (acquired immunodeficiency syndrome), CD4 <=200 Code(s): B20 - HUMAN IMMUNODEFICIENCY VIRUS [HIV] DISEASE (2) 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
[2018-12-28 15:01] VITALS: BP 152/105; PULSE 61; TEMP 98.9
--- NOTE | 2018-12-28 15:15 | DS ---
Physical Exam: SUBJECTIVE: No complaints today. Pt had a formed bowel movement between last afternoon and now regular in character and colour. Pt wants to go home. OBJECTIVE: Vital Signs Period Temp Pulse Resp BP Sys/Manriquez Pulse Ox Last 24 Hr 98.0 F-98.9 F 58-74 20-20 146-152/98-110 96 PHYSICAL EXAM GENERAL: The patient is awake, alert, and fully oriented, in no acute distress. HEENT: NC/AT, TRINH, MMM, minimal posterior oropharynx plaques (improved) NECK: Trachea midline, full range of motion, supple. LUNGS: CTA bilaterally, no wheezes, no crackles, no accessory muscle use. HEART: RRR, S1, S2 without murmur, rub or gallop. ABDOMEN: Soft, nondistended, nontender, normoactive bowel sounds, no guarding, no rebound, EXTREMITIES: 2+ pulses, warm, well-perfused, no edema. SKIN: Warm, dry, no rashes or lesions noted LABS Laboratory Results - last 24 hr 12/26/18 12/28/18 12/28/18 06:00 06:20 06:20 WBC 3.0 L 11.1 H RBC 3.54 L Hgb 11.6 Hct 33.7 MCV 95.0 MCH 32.7 MCHC 34.4 RDW 12.4 Plt Count 113 L MPV 9.9 Absolute Neuts (auto) 10.3 H Absolute Lymphs (auto) 0.4 L Neutrophils % 93.0 H Neutrophils % (Manual) 94.8 H Band Neutrophils % 0.0 Lymphocytes % 3.0 L D Lymphocytes % (Manual) 2.1 L D Monocytes % 3.1 L Monocytes % (Manual) 3 L Eosinophils % 0.6 Eosinophils % (Manual) 0.0 D Basophils % 0.3 Basophils % (Manual) 0.0 Myelocytes % (Man) 0 Promyelocytes % (Man) 0 Blast Cells % (Manual) 0 Nucleated RBC % 0 Lymphocytes 13 Metamyelocytes 0 Nucleated RBCs TNP Hypochromia 0 Platelet Estimate Decreased Polychromasia 0 Poikilocytosis 0 Anisocytosis 0 Microcytosis 0 Macrocytosis 0 Sodium 144 Potassium 3.7 Chloride 112 H Carbon Dioxide 27 Anion Gap 5 L BUN 5 L Creatinine 1.0 Creat Clearance w eGFR > 60 Random Glucose 74 Calcium 8.1 L Magnesium 2.4 Absolute CD3 Count 258 L % CD3+ Lymphocytes 64.6 Absolute CD4 [place] 28 L % CD4+ Lymphocyte 6.9 L CD4/CD8 Ratio 0.13 L % CD8+ Lymphocyte 54.2 H Absolute CD8 Count 217 HOSPITAL COURSE: Date of Admission:12/24/18 Date of Discharge: 12/28/18 Pt was admitted on 12/24/18 due to productive blood-streaked cough and loose watery stools starting 2 weeks prior to admission for suspected gastroenteritis vs. infectious colitis vs. opportunistic infection. Pt was seen by infectious disease and she was initiated back onto her HAART therapy (Descovy 1 tab qdaily , Prezcobix 1tab daily, and Mepron 1500mg daily). She was covered with IV Zosyn , Azithromycin, and Atovaquone for broad coverage of her colitis and had 5 days total. Pt was found to be neutropenic and as a result she was placed onto neutropenic precautions, hematology was consulted, and she was initiated on Neupogen. In addition, pt was found to have oral candidiasis and was started on nystatin Swish and swallow regiment. Throughout her stay she began to improve and her WBC count increased (initial 1,000 to discharge at 11,100). Three AFB sputum stains were performed which resulted in all negative results. Pt's diarrhea resolved and today she is being discharged in stable condition, off of home antibiotics, and with continuation of her HAART therapy with Mepron prophylaxis in interim. Pt understands to follow with the [facility] within [address] Yañez. CD4 count during her stay here was: 28 Imagin12/24/18 CXR: No evidence of pneumonia, pleural effusion, or pneumothorax 12/24/18 CT Abdomen/Pelvis: 2.7 cm right hepatic lobe cyst posteriorly without obvious interval change in comparison to an ultrasound study of 07/23/2015. Several nonspecific mildly prominent bilateral inguinal lymph nodes are seen. No gross acute colitis or noncontrast small bowel pathology is visualized. No obvious pelvic abnormality is visualized. 12/27/[address] noncontrast: Impression: Tree-in-bud medial left upper lobe, nonspecific but can be seen in NELLIE. Atelectasis/infiltrate right posterior costophrenic sulcus. Mild platelike atelectasis right middle lobe. Right hepatic lobe hypodensity which can be evaluated with sonography. Minutes to complete discharge: 35 Discharge Summary Reason For Visit: THRUSH,NEUTROPENIA ASSOCIATED WITH ACQUIRED IMMUNE Current Active Problems AIDS (acquired immunodeficiency syndrome), CD4 <=200 (Acute) Bronchiectasis (Acute) Cough (Acute) Neutropenia associated with acquired immune deficiency syndrome (AIDS) (Acute) SOB (shortness of breath) (Acute) Condition: Improved - Instructions Diet, Activity, Other Instructions: You were hospitalized here due to your diarrhea and cough with bloody mucus. You were seen by Dr. Yañez (infectious disease) who placed you on antibiotics. Stool studies, lab studies, and mucus studies were performed and you were cleared from tuberculosis as a reason. A CAT scan of your chest did see some abnormal findings, however you should follow-up with another CAT scan of your chest in another 6 months. MEDICATIONS: Please continue Descovy 1 tab DAILY Please continue Prezcobix 1 tab DAILY Please continue Mepron 1500mg TRAN --These medication have been sent to [facility] FOLLOW-UP: Please follow-up with Dr. Cox your primary provider. You will need an abdominal ultrasound because there was an area of your liver that did not look normal found on your CAT scan. Please follow-up with Dr. Yañez for your chronic conditions and continued medications for it. Your CD4 count this admission was 24. Please follow-up at the [facility] this week. Referrals: Kayli Alexander NP [Primary Care Provider] - Poly Yañez MD [Staff Physician] - Disposition: HOME - Home Medications Comprehensive Discharge Medication List: Ambulatory Orders Albuterol 0.083% Nebulizer Gayle [Ventolin 0.083% Nebulizer Soln -] 1 neb NEB Q6H PRN 12/25/18 Loratadine 10 mg PO QID 12/25/18 Atovaquone [Mepron Oral Solution -] 1,500 mg PO DAILY@0800 #30 ml 12/28/18 Darunavir/Cobicistat [Prezcobix 800 mg-150 mg Tablet] 1 each PO DAILY #30 tablet 12/28/18 Emtricitabine/Tenofov Alafenam [Descovy 200-25 mg Tablet (Nf)] 1 each PO DAILY # 30 tablet 12/28/18 This patient is new to me today: No Emergency Visit: Yes ED Registration Date: 12/24/18 Care time: The patient presented to the Emergency Department on the above date and was hospitalized for further evaluation of their emergent condition. Critical Care patient: No - Discharge Referral Referred to [facility] Med P.C.: No
--- NOTE | 2018-12-28 18:05 | PN ---
Teaching Attending Note Name of Resident: Mando Russell ATTENDING PHYSICIAN STATEMENT I saw and evaluated the patient. I reviewed the resident's note and discussed the case with the resident. I agree with the resident's findings and plan as documented. SUBJECTIVE: Feels much better - cough and diarrhea improved. No fever/chills. No chest pain/palps. OBJECTIVE: Afebrile, Hemodynamically Stable. Last Vital Signs Temp Pulse Resp BP Pulse Ox 98.9 F 61 20 152/105 H 96 12/28/18 14:59 12/28/18 14:59 12/28/18 14:59 12/28/18 14:59 12/28/18 09:00 HEENT - Oral thrush much improved. Heart - S1, S2, RRR Lungs - clear to auscultation. Abdomen - generalized tenderness. Soft. Bowel Sounds normal. Extremities - no calf swelling/tenderness. Neuro - AAO x 3. Tone/Power normal all 4 extremities. Laboratory Results - last 24 hr 12/26/18 12/28/18 12/28/18 06:00 06:20 06:20 WBC 3.0 L 11.1 H RBC 3.54 L Hgb 11.6 Hct 33.7 MCV 95.0 MCH 32.7 MCHC 34.4 RDW 12.4 Plt Count 113 L MPV 9.9 Absolute Neuts (auto) 10.3 H Absolute Lymphs (auto) 0.4 L Neutrophils % 93.0 H Neutrophils % (Manual) 94.8 H Band Neutrophils % 0.0 Lymphocytes % 3.0 L D Lymphocytes % (Manual) 2.1 L D Monocytes % 3.1 L Monocytes % (Manual) 3 L Eosinophils % 0.6 Eosinophils % (Manual) 0.0 D Basophils % 0.3 Basophils % (Manual) 0.0 Myelocytes % (Man) 0 Promyelocytes % (Man) 0 Blast Cells % (Manual) 0 Nucleated RBC % 0 Lymphocytes 13 Metamyelocytes 0 Nucleated RBCs TNP Hypochromia 0 Platelet Estimate Decreased Polychromasia 0 Poikilocytosis 0 Anisocytosis 0 Microcytosis 0 Macrocytosis 0 Sodium 144 Potassium 3.7 Chloride 112 H Carbon Dioxide 27 Anion Gap 5 L BUN 5 L Creatinine 1.0 Creat Clearance w eGFR > 60 Random Glucose 74 Calcium 8.1 L Magnesium 2.4 Absolute CD3 Count 258 L % CD3+ Lymphocytes 64.6 Absolute CD4 [place] 28 L % CD4+ Lymphocyte 6.9 L CD4/CD8 Ratio 0.13 L % CD8+ Lymphocyte 54.2 H Absolute CD8 Count 217 ASSESSMENT/PLAN 28 year old female with Asthma, HIV/AIDS (not well compliant with HAART therapy) , presented with cough, hemoptysis, abdominal pain, diarrhea, ongoing for weeks to months. 1. Leukopenia/Neutropenia secondary to AIDS - poorly compliant with HAART - Neutropenia resolved s/p Granix (recommended by Hematology)- currently with resulting Leukocytosis. Reported Cough and abdominal pain/diarrhea - no clear infective source for neutropenia - now resolved CXR - no infiltrate CT A/P - no acute intra-abdominal process, bilateral inguinal LNs CT Chest - tree-in-bud nodules KELVIN, 2.6 nodule/cyst R lobe of liver (present on prior abomdinal US 2014, no change) Flu neg Urine legionella negative Blood Cx negative Stool Cdiff neg Stool Crypto neg, Microsporidia pending Urine Cx - negative. AFB x 3 - negative. Quant Gold pending. Cryptococcal Ag and Mycobacterial Cx pending. Empirically treated with IV Azitho and Zosyn - patient stable for discharge off Abx therapy as per ID To resume HAART on discharge and follow up [facility]. PCP Px with Atorvaquone (allergic to Bactrim) 2. Oral thrush sec to AIDS - continue Nystatin 3. Chronic Diarrhea - appears to be improving. Work-up as above. 4. Hypomagnesemia/Hypokalemia - repleted. Medically cleared for discharge on HAART and ID follow up at [facility].
[2018-12-29 04:14] LABS: KAPPA/LAMBDA RATIO, UR 4.91 (2.04-10.37)
== END 2018-12-28 16:58 | disposition home or self-care (01) | DRG 660 ==
LOC: JER 15:58 → JERBED 21:41 → J8W 12-25 00:28
PROVIDERS: ADMIT Internal Medicine
DX: D70.3 Neutropenia due to infection (principal); J45.909 Unspecified asthma, uncomplicated; F17.210 Nicotine dependence, cigarettes, uncomplicated; R50.9 Fever, unspecified; R19.7 Diarrhea, unspecified; D72.819 Decreased white blood cell count, unspecified; R80.9 Proteinuria, unspecified; I10 Essential (primary) hypertension; K52.9 Noninfective gastroenteritis and colitis, unspecified; E87.6 Hypokalemia; J47.9 Bronchiectasis, uncomplicated; E83.42 Hypomagnesemia; D69.6 Thrombocytopenia, unspecified; E86.0 Dehydration; B20 Human immunodeficiency virus [HIV] disease; B37.0 Candidal stomatitis; E88.09 Other disorders of plasma-protein metabolism, not elsewhere classified; E66.9 Obesity, unspecified; Z68.34 Body mass index [BMI] 34.0-34.9, adult; Z59.0 Homelessness
CPT/HCPCS: 36415; 71046-TC-FY; 71250-TC; 74176-TC; 80048; 80053; 80061; 81003; 81015; 82550; 82553; 82570; 82607; 82746; 82784; 82803; 83036; 83605; 83615; 83721; 83735; 83883; 84100; 84155; 84156; 84165; 84443; 84484; 84703; 85025; 85027; 85610; 85730; 86359; 86360; 86480; 86593; 86850; 86900; 86901; 87015; 87040; 87070; 87086; 87116; 87177; 87205; 87206; 87207; 87209; 87324; 87328; 87329; 87449; 87497; 87536; 87804; 87899; 93005; 93010; 99283-25; G0463-25; J0131; J1447; J7030

== ENCOUNTER 2019-10-19 06:29 | Inpatient (IN) | payer OTHER ==
[2019-10-19] MEDS ORDERED: SODIUM CHLORIDE 2,994 ML IV ONE (07:20)
--- NOTE | 2019-10-19 07:23 | PDOC ---
History of Present Illness - General Chief Complaint: Respiratory Stated Complaint: FEVER History Source: Patient Exam Limitations: No Limitations, Clinical Condition - History of Present Illness Initial Comments: Gloria is a 28 yo F w a pmh of asthma (no hospitalizations since childhood, no intubations no ICU admissions) and HIV formerly on HAART therapy - but not currently taking meds for 2 months since early August last known CD4 in January was low at 104, and chronic varicella zoster presents to the ER because she has had a cough and a fever for the past 2 weeks. She admits to having a productive cough for the past week with dark brown phlegm. She endorses a history of PCP pneumonia in the past but is allergic to Bactrim. The patient states she was good about taking her meds except she ran out in August and did not refill them for an unknown reason. She states her whole body hurts and she has diffuse chills. She denies any dysuria, frequency, urgency, numbness, tingling, chills, blurry vision, nausea, or vomiting. PCP: Kayli Alexander PSH: None reported Social Hx: Lives in [facility], Every day smoker , smokes K2, marijuana, denies IVDU or other substances including alcohol. Allergies: Fish containing products, vancomycin, Sulfamethoxazole, trimethoprim , clindamycin Past History - Past Medical History Allergies/Adverse Reactions: Allergies Allergy/AdvReac Type Severity Reaction Status Date / Time Fish Containing Products Allergy Severe Swelling Verified 10/19/19 06:39 vancomycin Allergy Severe Swelling Verified 10/19/19 06:39 sulfamethoxazole Allergy Intermediate fever, Verified 10/19/19 06:39 [From Bactrim] abnl lfts trimethoprim [From Bactrim] Allergy Intermediate fever, Verified 10/19/19 06:39 abnl lfts clindamycin Allergy Itching Verified 10/19/19 06:39 Home Medications: Ambulatory Orders NK [No Known Home Medication] 10/19/19 Anemia: No Asthma: Yes Cancer: No Cardiac Disorders: No CVA: No COPD: No CHF: No Dementia: No Diabetes: No GI Disorders: No Disorders: No HTN: Yes Hypercholesterolemia: No Kidney Stones: No Liver Disease: No Seizures: No Thyroid Disease: No - Surgical History Abdominal Surgery: No Appendectomy: No Cardiac Surgery: No Cholecystectomy: No Lung Surgery: No Neurologic Surgery: No Orthopedic Surgery: No - Reproductive History PID: No - Immunization History Immunization Up to Date: No - Psycho Social/Smoking Cessation Hx Smoking History: Never smoked Have you smoked in the past 12 months: Yes Number of Cigarettes Smoked Daily: 20 'Breaking Loose' booklet given: 05/21/18 Hx Alcohol Use: No Drug/Substance Use Hx: Yes Substance Use Type: Marijuana Hx Substance Use Treatment: Yes (One previous inpt rehab @ [facility] in 2014) Review of Systems - Review of Systems Able to Perform ROS?: Yes Comments:: CONSTITUTIONAL: Present: Fever, chills, fatigue EYES: Absent: visual changes ENT: Absent: ear pain, no sore throat CARDIOVASCULAR: Present: Chest pain Absent: no palpitations RESPIRATORY: Present: Cough, SOB GI: Absent: abdominal pain, no nausea, no vomiting, no constipation, no diarrhea GENITOURINARY: Absent: dysuria, no frequency, no hematuria MUSKULOSKELETAL: Present: Myalgia Absent: back pain, no arthralgia SKIN: Absent: rash NEURO: Absent: headache *Physical Exam - Vital Signs Last Vital Signs Temp Pulse Resp BP Pulse Ox 98.3 F 98 H 16 150/110 H 100 10/19/19 06:40 10/19/19 06:40 10/19/19 06:40 10/19/19 06:40 10/19/19 06:40 - Physical Exam GENERAL: Well-appearing, well-nourished. Mild distress. HEENT: Normocephalic, atraumatic. PERRL, EOM intact. CARDIOVASCULAR: Tachycardic rate. Normal S1, S2. Regular rhythm. PULMONARY: Decreased breath sounds. No focal crackles. Mild evidence of respiratory distress. No wheezing or rhonchi. ABDOMEN: Soft, non-distended, non-tender. EXTREMITIES: Normal ROM in all four extremities. No gross deformities. SKIN: Warm, dry. No rash NEUROLOGICAL: No focal neurological deficits. ED Treatment Course - LABORATORY CBC & Chemistry Diagram: 10/19/19 07:00 10/19/19 07:00 - RADIOLOGY Radiology Studies Ordered: Category Date Time Status CHEST PA & LAT [RAD] Stat Radiology 10/19/19 07:22 Ordered Medical Decision Making - Medical Decision Making Gloria is a 28 yo F w a pmh of asthma (no hospitalizations since childhood, no intubations no ICU admissions) and HIV formerly on HAART therapy - but not currently taking meds for 2 months since early August last known CD4 in January was low at 104, and chronic varicella zoster presents to the ER because she has had a cough and a fever for the past 2 weeks. She admits to having a productive cough for the past week with dark brown phlegm. She endorses a history of PCP pneumonia in the past but is allergic to Bactrim. The patient states she was good about taking her meds except she ran out in August and did not refill them for an unknown reason. She states her whole body hurts and she has diffuse chills. She denies any dysuria, frequency, urgency, numbness, tingling, chills, blurry vision, nausea, or vomiting. Vital Signs Temp Pulse Resp BP Pulse Ox 98.3 F 98 H 16 150/110 H 100 10/19/19 06:40 10/19/19 06:40 10/19/19 06:40 10/19/19 06:40 10/19/19 06:40 DDx IBNLT: PNA, Sepsis, electrolyte/metabolic disturbance, ACS/NE, PNA, URI, PCP , immunosuppression Plan: Labs, Urine, CXR, EKG, IV hydration, Abx, re-assess Labs: unremarkable with no glaring abnormalities. Urine: No UTI CXR: No acute process EKG: NS rate of 86, narrow complexes, normal axis, no hypertrophy, no ST elevations or depressions, Qtc 447, AK 204 (1st degree?) Re-assessment: Patient has a depressed affect Disposition: Admit for immunosuppression and r/o AIDS Discharge - Discharge Information Problems reviewed: Yes Clinical Impression/Diagnosis: Immunosuppressed status, AIDS (acquired immunodeficiency syndrome), CD4 <=200 Condition: Stable - Admission Yes - Follow up/Referral - Patient Discharge Instructions - Post Discharge Activity
[2019-10-19 08:02] LABS: VENOUS PC02 34.9 mmHg (38-52); VENOUS PH 7.41 (7.31-7.41)
[2019-10-19 08:05] LABS: BASO % 0.3 % (0-2.0); EOS % 2.2 % (0-4.5); HEMATOCRIT 33.6 % (32.4-45.2); HEMOGLOBIN 11.4 GM/dL (10.7-15.3); LYMPH % 5.9 % (8-40); MCH 33.4 pg (25.7-33.7); MCHC 34.1 g/dl (32.0-36.0); MEAN PLT VOLUME 9.6 fl (7.5-11.1); MONO % 5.9 % (3.8-10.2); NEUT % 85.7 % (42.8-82.8); PLATELET COUNT 192 K/MM3 (134-434); RBC 3.43 M/mm3 (3.60-5.2); RDW 12.7 % (11.6-15.6); WHITE BLOOD COUNT 5.2 K/mm3 (4.0-10.0)
[2019-10-19 08:26] LABS: INR 0.88 (0.83-1.09); PROTHROMBIN TIME (PATIENT) 10.4 SEC (9.7-13.0)
[2019-10-19 08:29] LABS: ACTIVATED PTT 37.1 SECONDS (25.2-36.5)
[2019-10-19 08:31] LABS: ALBUMIN 2.6 g/dl (3.4-5.0); ALK PHOS 124 U/L (45-117); ANION GAP 8 MMOL/L (8-16); BILIRUBIN,TOTAL 0.2 mg/dL (0.2-1); BLOOD UREA NITROGEN 14.2 mg/dL (7-18); CALCIUM 8.5 mg/dL (8.5-10.1); CHLORIDE 111 mmol/L (98-107); CO2 22 mmol/L (21-32); CREATININE 0.9 mg/dL (0.55-1.3); GLUCOSE,RANDOM 80 mg/dL (74-106); SGOT/AST 16 U/L (15-37); SGPT/ALT 14 U/L (13-61); SODIUM 141 mmol/L (136-145); TOT PROT 8.5 g/dl (6.4-8.2)
--- NOTE | 2019-10-19 09:05 | EKG ---
Test Reason : Blood Pressure : / mmHG Vent. Rate : 086 BPM Atrial Rate : 086 BPM P-R Int : 204 ms QRS Dur : 068 ms QT Int : 374 ms P-R-T Axes : 049 011 034 degrees QTc Int : 447 ms NORMAL SINUS RHYTHM NORMAL ECG WHEN COMPARED WITH ECG OF 24-DEC-2018 21:34, NO SIGNIFICANT CHANGE WAS FOUND Confirmed by Yevgeniy Araya MD ([id number]) on 10/19/2019 9:05:33 AM Referred By: Confirmed By:Yevgeniy Araya MD
--- NOTE | 2019-10-19 09:13 | PDOC ---
Attending Attestation - Resident Resident Name: Eduar Celestin - ED Attending Attestation I have performed the following: I have examined & evaluated the patient, The case was reviewed & discussed with the resident, I agree w/resident's findings & plan - HPI HPI: 10/19/19 09:09 29-year-old female with history of mild intermittent asthma, HIV/AIDS noncompliant with medications (history of depression, but more recent obstacle appears to be that she ran out of meds), Patient of the [facility] presents now with progressive generalized weakness with cough and chills. Reports some shortness of breath, denies any diarrhea or constipation or urinary complaints. - Physicial Exam PE: 10/19/19 09:11 Afebrile with O2 sat 100% on room air, she is tachypneic and slightly tachycardic Somnolent in stretcher but arousable to voice and answering questions and following commands appropriately Exam is atraumatic, neck is supple, pupils are equal round reactive to light Heart is regular slight tachycardia, lungs are mostly clear Abdomen with some right mid and right upper quadrant tenderness without guarding or rebound, no CVA tenderness Neurological exam is nonfocal, no rashes, no edema - Medical Decision Making 10/19/19 09:11 29-year-old female with history of HIV/AIDS and medication noncompliance presents now with progressive generalized weakness with respiratory symptoms, hemodynamically stable here but with some tachypnea and tachycardia. Concern for infectious pulmonary process in this immunosuppressed patient, no evidence of asthma exacerbation. Sepsis protocol initiated Chest x-ray, consider CT. EKG ID/[facility] consult Admission 10/19/19 09:13 wbc 5.2 (improved compared to prior in 01/26). labs otherwise wnl including trop and LFTs. CXR without acute pathology. O2 on VBG low, check ABG. Influenza negative. ID consulted, receiving IV fluids. Consider ct imaging, then admission. Heart Score/ECG Review #1 ECG reviewed & interpreted by me at: 08:37 General ECG Interpretation: Sinus Rhythm, Normal Rate (86), Normal Intervals ( qtc 447), No acute ischemic changes
[2019-10-19 10:46] LABS: LDH 282 U/L (84-246)
[2019-10-19] MEDS ORDERED: ACETAMINOPHEN 325 MG TABLET (FP) PO PRN (11:13)
--- NOTE | 2019-10-19 12:55 | PN ---
Teaching Attending Note Name of Resident: Linoel Hudson ATTENDING PHYSICIAN STATEMENT I saw and evaluated the patient. I reviewed the resident's note and discussed the case with the resident. I agree with the resident's findings and plan as documented. SUBJECTIVE: OBJECTIVE: Vital Signs Temperature 98.7 F 10/19/19 08:00 Pulse Rate 104 H 10/19/19 08:00 Respiratory Rate 20 10/19/19 08:00 Blood Pressure 140/95 10/19/19 08:00 O2 Sat by Pulse Oximetry (%) 99 10/19/19 08:00 GENERAL: The patient is awake, alert, and fully oriented, in no acute distress. HEAD: Normal with no signs of trauma. EYES: PERRL, extraocular movements intact, sclera anicteric, conjunctiva clear. ENT: Ears normal, oropharynx clear without exudates, moist mucous membranes. NECK: Trachea midline, full range of motion, supple. LUNGS: Breath sounds equal, clear to auscultation bilaterally, no wheezes, no crackles, no accessory muscle use. HEART: Regular rate and rhythm, S1, S2 without murmur, rub or gallop. ABDOMEN: Soft, nontender, nondistended, normoactive bowel sounds, no guarding, no rebound, no hepatosplenomegaly, no masses. EXTREMITIES: 2+ pulses, warm, well-perfused, no edema. NEUROLOGICAL: Cranial nerves II through XII grossly intact. Normal speech, gait not observed. PSYCH: Normal mood, normal affect. SKIN: Warm, dry, normal turgor, no rashes or lesions noted CBCD WBC 5.2 K/mm3 (4.0-10.0) 10/19/19 07:00 RBC 3.43 M/mm3 (3.60-5.2) L 10/19/19 07:00 Hgb 11.4 GM/dL (10.7-15.3) 10/19/19 07:00 Hct 33.6 % (32.4-45.2) 10/19/19 07:00 MCV 98.0 fl (80-96) H 10/19/19 07:00 MCHC 34.1 g/dl (32.0-36.0) 10/19/19 07:00 RDW 12.7 % (11.6-15.6) 10/19/19 07:00 Plt Count 192 K/MM3 (134-434) D 10/19/19 07:00 MPV 9.6 fl (7.5-11.1) D 10/19/19 07:00 CMP Sodium 141 mmol/L (136-145) 10/19/19 07:00 Potassium 4.0 mmol/L (3.5-5.1) 10/19/19 07:00 Chloride 111 mmol/L (98-107) H 10/19/19 07:00 Carbon Dioxide 22 mmol/L (21-32) 10/19/19 07:00 Anion Gap 8 MMOL/L (8-16) 10/19/19 07:00 BUN 14.2 mg/dL (7-18) 10/19/19 07:00 Creatinine 0.9 mg/dL (0.55-1.3) 10/19/19 07:00 Random Glucose 80 mg/dL (74-106) 10/19/19 07:00 Calcium 8.5 mg/dL (8.5-10.1) 10/19/19 07:00 Total Bilirubin 0.2 mg/dL (0.2-1) 10/19/19 07:00 AST 16 U/L (15-37) 10/19/19 07:00 ALT 14 U/L (13-61) 10/19/19 07:00 Alkaline Phosphatase 124 U/L (45-117) H 10/19/19 07:00 Total Protein 8.5 g/dl (6.4-8.2) H 10/19/19 07:00 Albumin 2.6 g/dl (3.4-5.0) L 10/19/19 07:00 CARDIAC ENZYMES Troponin I < 0.02 ng/ml (0.00-0.05) 10/19/19 07:00 Current Medications Generic Name Dose Route Start Last Admin Trade Name Freq PRN Reason Stop Dose Admin Acetaminophen 650 mg 10/19/19 11:13 Tylenol - PO Q6H PRN FEVER Sodium Chloride 1,000 mls @ 75 mls/hr 10/19/19 11:30 Normal Saline - IV ASDIR KIERAN ASSESSMENT AND PLAN:
--- NOTE | 2019-10-19 13:35 | HP ---
CHIEF COMPLAINT: weakness, lethargy, wet cough PCP: Kayli Alexander [facility] HISTORY OF PRESENT ILLNESS: Patient is a 29 year old female with a significant past medical history of asthma (no hospitalizations since childhood, and no intubations) and HIV was on HAART therapy but patient states she has not been taking medications for a few months because she ran out of them. Her last known CD4 in January was 104. Patient reports to the ED with complaints of generalized weakness, wet cough, malaise, body aches, chills and fever for the last 2 weeks. She admits to a productive cough for the past week with dark brown phlegm. She endorses a history of PCP pneumonia. She denies any dysuria, frequency, urgency, numbness , tingling, chills, blurry vision, nausea, or vomiting. In the ED she was seen in the hallway, awaiting bed assignment. She had a episode of non bloody, non bili emesis and reports abdominal pain on light palpation of the abdomen. She reports nausea and no appetite. ER course was notable for: (1) us/abdomen: fatty inf of lier vs hepatocellular disease. right hepatic lobe simple cyst, gallstone measuring 1.9 cm with questionable other tiny stones. posible adenomyomatosis. (2) chest xray negative for acute process (3) abd/pelvis ct ordered and pending (4) alk phos 124, ld 282 (5) flu negative Recent Travel: denies PAST MEDICAL HISTORY: asthma, hiv PAST SURGICAL HISTORY: Social History: Smoking: denies Alcohol: denies Drugs: denies Allergies Fish Containing Products Allergy (Severe, Verified 10/19/19 06:39) Swelling vancomycin Allergy (Severe, Verified 10/19/19 06:39) Swelling sulfamethoxazole [From Bactrim] Allergy (Intermediate, Verified 10/19/19 06:39) fever, abnl lfts trimethoprim [From Bactrim] Allergy (Intermediate, Verified 10/19/19 06:39) fever, abnl lfts clindamycin Allergy (Verified 10/19/19 06:39) Itching HOME MEDICATIONS: Home Medications Medication Instructions Recorded NK [No Known Home Medication] 10/19/19 PHYSICAL EXAMINATION Vital Signs - 24 hr 10/19/19 10/19/19 06:40 08:00 Temperature 98.3 F 98.7 F Pulse Rate 98 H Pulse Rate [ 104 H Radial] Respiratory 16 20 Rate Blood Pressure 150/110 H Blood Pressure 140/95 [Left Arm] O2 Sat by Pulse 100 99 Oximetry (%) GENERAL: lethargic, arousable, answers questions, falls back to sleep easily. HEAD: Normal with no signs of trauma. EYES: Pupils equal, round and reactive to light, extraocular movements intact, sclera anicteric, conjunctiva clear. No lid lag. EARS, NOSE, THROAT: Ears normal, nares patent, oropharynx clear without exudates. Moist mucous membranes. NECK: Normal range of motion, supple without lymphadenopathy, JVD, or masses. LUNGS: scattered rhonchi anteriorly, diminished bilaterally HEART: Regular rate and rhythm, ABDOMEN: Soft, tender to light palpation, not distended, normoactive bowel sounds MUSCULOSKELETAL: Normal range of motion at all joints. No bony deformities or tenderness. No CVA tenderness. UPPER EXTREMITIES: No peripheral edema. LOWER EXTREMITIES: No peripheral edema. SKIN: Warm, dry, normal turgor, no rashes or lesions noted, normal capillary refill. Laboratory Results - last 24 hr 10/19/19 10/19/19 10/19/19 07:00 07:00 07:30 WBC 5.2 RBC 3.43 L Hgb 11.4 Hct 33.6 MCV 98.0 H MCH 33.4 MCHC 34.1 RDW 12.7 Plt Count 192 D MPV 9.6 D Absolute Neuts (auto) 4.5 Neutrophils % 85.7 H D Lymphocytes % 5.9 L D Monocytes % 5.9 Eosinophils % 2.2 Basophils % 0.3 Nucleated RBC % 0 PT with INR 10.40 INR 0.88 PTT (Actin FS) 37.1 H VBG pH POC VBG pCO2 POC VBG pO2 VBG HCO3 VBG O2 Sat (Lauren) VBG Base Excess Sodium 141 Potassium 4.0 Chloride 111 H Carbon Dioxide 22 Anion Gap 8 BUN 14.2 Creatinine 0.9 Est GFR (CKD-EPI)AfAm 100.14 Est GFR (CKD-EPI)NonAf 86.41 Random Glucose 80 Lactic Acid Calcium 8.5 Total Bilirubin 0.2 AST 16 ALT 14 Alkaline Phosphatase 124 H LD Total 282 H Troponin I < 0.02 Total Protein 8.5 H Albumin 2.6 L Influenza A (Rapid) Influenza B (Rapid) 10/19/19 10/19/19 10/19/19 07:30 07:34 07:45 WBC RBC Hgb Hct MCV MCH MCHC RDW Plt Count MPV Absolute Neuts (auto) Neutrophils % Lymphocytes % Monocytes % Eosinophils % Basophils % Nucleated RBC % PT with INR INR PTT (Actin FS) VBG pH 7.41 POC VBG pCO2 34.9 L POC VBG pO2 61.0 H VBG HCO3 21.7 L VBG O2 Sat (Lauren) 90.7 H VBG Base Excess -1.9 Sodium Potassium Chloride Carbon Dioxide Anion Gap BUN Creatinine Est GFR (CKD-EPI)AfAm Est GFR (CKD-EPI)NonAf Random Glucose Lactic Acid 0.9 Calcium Total Bilirubin AST ALT Alkaline Phosphatase LD Total Troponin I Total Protein Albumin Influenza A (Rapid) Negative Influenza B (Rapid) Negative ASSESSMENT/PLAN: Family Medical History Family History: Unable to Obtain Problem List - Problem (1) Immunosuppressed status Assessment/Plan: patient presents with weakness, wet cough (non productive). Concern for infectious pulmonary process in this immunocompromised patient, no evidence of asthma exacerbation currently. chest xray negative but has a wet non productive cough. lactic acid within normal limits chest ct ordered to rule out acute pneumonia negative for flu Code(s): D89.9 - DISORDER INVOLVING THE IMMUNE MECHANISM, UNSPECIFIED (2) Abdominal pain Assessment/Plan: ultrasound shoes gallstone measuring 1.9 cm with questionable tiny stones make npo surgery consulted type and screen, lipase ordered Code(s): R10.9 - UNSPECIFIED ABDOMINAL PAIN (3) Cough Assessment/Plan: rule out pneumonia. chest ct ordered. Code(s): R05 - COUGH (4) DVT prophylaxis Code(s): XCY8372 - (5) SOB (shortness of breath) Assessment/Plan: on supplemental oxygen abg ordered Code(s): R06.02 - SHORTNESS OF BREATH (6) Cannabis dependence Code(s): F12.20 - CANNABIS DEPENDENCE, UNCOMPLICATED (7) HIV (human immunodeficiency virus infection) Assessment/Plan: last cd4 count 104 01/2019 repeat immunology pending non compliance with medications ID consulted Code(s): B20 - HUMAN IMMUNODEFICIENCY VIRUS [HIV] DISEASE Visit type - Emergency Visit Emergency Visit: Yes ED Registration Date: 10/19/19 Care time: The patient presented to the Emergency Department on the above date and was hospitalized for further evaluation of their emergent condition. - New Patient This patient is new to [place] today: Yes Date on this admission: 10/20/19 - Critical Care Critical Care patient: No
[2019-10-19] MEDS ORDERED: CEFTRIAXONE 1,000 MG in DEXTROSE 5%-WATER - 50 ML IVPB ONE (13:36)
[2019-10-19] MEDS ORDERED: AZITHROMYCIN IVPB 500 MG in DEXTROSE 5%-WATER - 250 ML IVPB ONE (13:38)
[2019-10-19 13:56] LABS: EPI CELLS 14.5 /HPF (0-5/HPF); HYALINE CASTS 8 /lpf (0-8); PH,URINE 6.5 (5.0-8.0); URINE APPEARANCE CLOUDY; URINE BACTERIA 330.2 /hpf (NEGATIVE); URINE BILIRUBIN NEGATIVE (NEGATIVE); URINE COLOR YELLOW; URINE GLUCOSE (UA) NEGATIVE (NEGATIVE); URINE KETONE NEGATIVE (NEGATIVE); URINE LEUK ESTERASE NEGATIVE (NEGATIVE); URINE NITRITE NEGATIVE (NEGATIVE); URINE PROTEIN 3+ (NEGATIVE); URINE RBC 3 /hpf (0-4); URINE WBC 8 /hpf (0-5)
[2019-10-19] MEDS: SODIUM CHLORIDE 1,000 ML IV SCH ×2 (14:00→22:36)
[2019-10-19 14:12] LABS: COCAINE, UR NEGATIVE ng/ml (CUTOFF=300); METHADONE, UR NEGATIVE ng/ml (CUTOFF=300); OPIATES, URI NEGATIVE ng/ml (CUTOFF=300); PHENCYCLIDINE,URINE NEGATIVE ng/ml (CUTOFF=25); URINE AMPHETAMINES NEGATIVE ng/ml (CUTOFF=500); URINE BARBITURATES NEGATIVE ng/ml (CUTOFF=200); URINE BENZODIAZEPINES NEGATIVE ng/ml (CUTOFF=200)
--- NOTE | 2019-10-19 15:32 | PN ---
Progress Note (short form) - Note Progress Note: ID consult dictated 29 yo female with HIV with 2 week history of cough with yellow sputum and subjective fevers not hypoxic not taking her meds last cd4 102 in January not in care reports recent hospitalization at [facility]- was there for one week +smoker +asthma quant 01/26 was negative staying with a friend aids by ryan cough with subjective fevers history of asthma suggest chest ct to evaluate for pneumonia sputum culture urinary antigen rocephin/zithromax add mepron for pcp prophylaxis cd4 count multiple antibiotic allergies
[2019-10-19] MEDS ORDERED: AZITHROMYCIN IVPB 500 MG/250 ML BAG IVPB ONE (15:47)
[2019-10-19] MEDS ORDERED: CEFTRIAXONE 1 GM/50 ML BAG ONE (15:47)
[2019-10-19] MEDS ORDERED: ONDANSETRON 4 MG/2 ML VIAL IVPUSH PRN (16:25)
[2019-10-19] MEDS ORDERED: ACETAMINOPHEN 1000 MG/100 ML VIAL (NON FORMULARY) IVPB PRN (16:28)
[2019-10-19] MEDS ORDERED: ALBUTEROL SO4 2.5/IPRATROPIUM 0.5 INH SOL 3 ML VIAL.NEB. NEB PRN (18:23)
[2019-10-19 19:11] LABS: ARTERIAL BLD GAS O2 SATURATION 96.2 % (95-98); ARTERIAL BLOOD GAS BASE EXCESS -1.9 meq/l (-2-2); ARTERIAL BLOOD GAS PCO2 33.2 mmHg (35-45); ARTERIAL BLOOD GAS PO2 84.5 mmHg (80-100); ARTERIAL BLOOD GAS pH 7.42 (7.35-7.45)
[2019-10-19 19:12] LABS: ALLENS TEST POSITIVE
[2019-10-19] MEDS: PANTOPRAZOLE SODIUM 40 MG VIAL IVPUSH SCH (19:20)
--- NOTE | 2019-10-19 19:22 | CONS ---
DATE OF CONSULTATION: 10/19/2019 CONSULTATION REQUESTED BY: Infectious Disease HISTORY OF PRESENT ILLNESS: The patient is a 29-year-old woman with HIV who has not been taking her medications for quite a while. Her last CD4 was 102 in January. She is not in care. She reports that she has had two weeks of cough with yellow sputum and subjective fevers at home. In the ER, she is not hypoxic. She has had no nausea, vomiting or diarrhea. She was eating at the time I saw her. She reports recent hospitalization at [facility] and reports she was there for one week. She is an active smoker and smokes two to three cigarettes a day. She has a history of childhood asthma. She had a QuantiFERON in January 2019 that was negative. She is staying with a friend. She currently looks quite comfortable. Her last hospitalization at [facility] was in December 2018. ALLERGIES: Multiple allergies including VANCOMYCIN, BACTRIM AND CLINDAMYCIN. PAST MEDICAL HISTORY: Notable for asthma, hypertension and HIV. She states she recently had an episode of pneumonia at [facility]. PAST SURGICAL HISTORY: Notable for surgery on her left ear in 2012. SOCIAL HISTORY: She is staying with a friend. No history of IV drug use. She reports that her HIV risk factor was sexual contact. She smokes marijuana and cigarettes. REVIEW OF SYSTEMS: She has no abdominal pain. She has had no nausea or vomiting. She does note a cough and is bringing up yellow sputum. PHYSICAL EXAMINATION: General: She is awake and alert, quite comfortable. Vital Signs: Temperature is 98.7, pulse 104, blood pressure 140/95, respiratory rate 20, saturating 99% on room air. HEENT: She is normocephalic. Her eyes are anicteric. She has no conjunctival hemorrhages. Neck: Supple. Lungs: There are scattered rhonchi. Heart: Regular rate and rhythm. Abdomen: Soft, nontender. Extremities: No edema. LABORATORY DATA: White count is 5.2. Hemoglobin is 11.4, platelets are 192. BUN and creatinine are 14 and 0.9. Alkaline phosphatase is 124. Urinalysis has 3+ protein. Her urine toxicology is notable for marijuana. Urine test is negative. Her T-cells are pending. In January, they were 104. Her influenza screen done in the ER was negative. She had an ultrasound done in the emergency room that showed a 1.9-cm gallstone. Her chest x-ray shows an elevated right rafael-diaphragm but shows no evidence of infiltrate. In summary, this is a 29-year-old woman with AIDS by T-cells who has complaints of cough with subjective fevers and a history of asthma. I would suggest a chest CT to evaluate for pneumonia. Would obtain sputum cultures and urinary antigens. Blood cultures have been sent. Will treat her for community-acquired pneumonia with ceftriaxone and Zithromax and add Mepron for PCP prophylaxis. I will check a CD4 count as well. Be aware that she has MULTIPLE ANTIBIOTIC ALLERGIES. She is going to be seen by surgery for the finding of gallstones. Further recommendations to follow. CHARLES LUO M.D. [id number]
[2019-10-19] MEDS ORDERED: PANTOPRAZOLE SODIUM 40 MG VIAL ONE (19:27)
[2019-10-20] MEDS ORDERED: DEXTROSE 5%-0.45% SALINE 1,000 ML IV SCH (01:30)
[2019-10-20 02:50] VITALS: BMI 33.1
[2019-10-20] MEDS: MORPHINE SULFATE 2 MG/ML VIAL IVPUSH PRN (06:00)
[2019-10-20 07:54] LABS: HEMATOCRIT 32.3 % (32.4-45.2); HEMOGLOBIN 11.1 GM/dL (10.7-15.3); MCH 33.6 pg (25.7-33.7); MCHC 34.2 g/dl (32.0-36.0); MEAN CELL VOLUME 98.2 fl (80-96); MEAN PLT VOLUME 9.7 fl (7.5-11.1); PLATELET COUNT 190 K/MM3 (134-434); RBC 3.29 M/mm3 (3.60-5.2); RDW 12.6 % (11.6-15.6); WHITE BLOOD COUNT 5.1 K/mm3 (4.0-10.0)
[2019-10-20 08:23] LABS: ALBUMIN 2.4 g/dl (3.4-5.0); BILIRUBIN,TOTAL 0.3 mg/dL (0.2-1); CALCIUM 8.3 mg/dL (8.5-10.1); CREATININE 0.9 mg/dL (0.55-1.3); MAGNESIUM 1.8 mg/dL (1.8-2.4); PHOSPHOROUS 3.6 mg/dL (2.5-4.9); POTASSIUM 3.7 mmol/L (3.5-5.1)
--- NOTE | 2019-10-20 09:52 | PN ---
Physical Exam: SUBJECTIVE: Patient seen and examined. more wake and alert, hungry. denies chest pain or shortness of breath. OBJECTIVE: abdomen still mildly tender on exam, denies any nausea or vomiting Patient is a 29 year old female with a significant past medical history of asthma (no hospitalizations since childhood, and no intubations) and HIV was on HAART therapy but patient states she has not been taking medications for a few months because she ran out of them. Her last known CD4 in January was 104. Patient reports to the ED with complaints of generalized weakness, wet cough, malaise, body aches, chills and fever for the last 2 weeks. She admits to a productive cough for the past week with dark brown phlegm. She also reports abddominal pain and tenderness and had an episode of non bloody, non bili emesis in the Ed. Vital Signs Period Temp Pulse Resp BP Sys/Manriquez Pulse Ox Last 24 Hr 98.4 F-98.6 F 75-82 16-20 148-149/86-97 99-99 GENERAL: awake, alert and in no acute distress HEAD: Normal with no signs of trauma. EYES: Pupils equal, round and reactive to light, extraocular movements intact, sclera anicteric, conjunctiva clear. No lid lag. EARS, NOSE, THROAT: Ears normal, nares patent, oropharynx clear without exudates. Moist mucous membranes. NECK: Normal range of motion, supple without lymphadenopathy, JVD, or masses. LUNGS: scattered rhonchi anteriorly, diminished bilaterally HEART: Regular rate and rhythm, ABDOMEN: Soft, tender to light palpation, not distended, normoactive bowel sounds MUSCULOSKELETAL: Normal range of motion at all joints. No bony deformities or tenderness. No CVA tenderness. UPPER EXTREMITIES: No peripheral edema. LOWER EXTREMITIES: No peripheral edema. SKIN: Warm, dry, normal turgor, no rashes or lesions noted, normal capillary refill. Laboratory Results - last 24 hr 10/19/19 10/19/19 10/19/19 07:00 13:26 13:26 WBC RBC Hgb Hct MCV MCH MCHC RDW Plt Count MPV Anticoagulation Therapy Puncture Site ABG pH ABG pCO2 at Pt Temp ABG pO2 at Pt Temp ABG HCO3 ABG O2 Sat (Measured) ABG O2 Content ABG Base Excess Dru Test O2 Delivery Device Oxygen Flow Rate Vent Mode Vent Rate Mechanical Rate Pressure Support Vent Sodium Potassium Chloride Carbon Dioxide Anion Gap BUN Creatinine Est GFR (CKD-EPI)AfAm Est GFR (CKD-EPI)NonAf POC Glucometer Random Glucose Calcium Phosphorus Magnesium Total Bilirubin AST ALT Alkaline Phosphatase LD Total 282 H Total Protein Albumin Lipase Urine Color Yellow Urine Appearance Cloudy Urine pH 6.5 D Ur Specific [place] 1.023 Urine Protein 3+ H Urine Glucose (UA) Negative Urine Ketones Negative Urine Blood Negative Urine Nitrite Negative Urine Bilirubin Negative Urine Urobilinogen 1.0 Ur Leukocyte Esterase Negative Urine WBC (Auto) 8 Urine RBC (Auto) 3 Urine Casts (Auto) 8 U Epithel Cells (Auto) 14.5 Urine Bacteria (Auto) 330.2 Urine HCG, Qual Negative Opiates Screen Methadone Screen Barbiturate Screen Phencyclidine Screen Ur Amphetamines Screen MDMA (Ecstasy) Screen Benzodiazepines Screen Cocaine Screen U Marijuana (THC) Screen Anti-A Titer Blood Type Antibody Screen 10/19/19 10/19/19 10/19/19 13:26 17:00 18:55 WBC RBC Hgb Hct MCV MCH MCHC RDW Plt Count MPV Anticoagulation Therapy No Result Required. Puncture Site Right radial ABG pH 7.42 ABG pCO2 at Pt Temp 33.2 L ABG pO2 at Pt Temp 84.5 ABG HCO3 21.3 L ABG O2 Sat (Measured) 96.2 ABG O2 Content 17.9 ABG Base Excess -1.9 Dru Test Positive O2 Delivery Device Room air Oxygen Flow Rate Yes Vent Mode No Result Required. Vent Rate No Result Required. Mechanical Rate No Result Required. Pressure Support Vent No Result Required. Sodium Potassium Chloride Carbon Dioxide Anion Gap BUN Creatinine Est GFR (CKD-EPI)AfAm Est GFR (CKD-EPI)NonAf POC Glucometer Random Glucose Calcium Phosphorus Magnesium Total Bilirubin AST ALT Alkaline Phosphatase LD Total Total Protein Albumin Lipase 125 Urine Color Urine Appearance Urine pH Ur Specific [place] Urine Protein Urine Glucose (UA) Urine Ketones Urine Blood Urine Nitrite Urine Bilirubin Urine Urobilinogen Ur Leukocyte Esterase Urine WBC (Auto) Urine RBC (Auto) Urine Casts (Auto) U Epithel Cells (Auto) Urine Bacteria (Auto) Urine HCG, Qual Opiates Screen Negative Methadone Screen Negative Barbiturate Screen Negative Phencyclidine Screen Negative Ur Amphetamines Screen Negative MDMA (Ecstasy) Screen Negative Benzodiazepines Screen Negative Cocaine Screen Negative U Marijuana (THC) Screen Positive A* Anti-A Titer Blood Type Antibody Screen 10/19/19 10/20/19 10/20/19 18:55 00:00 05:52 WBC RBC Hgb Hct MCV MCH MCHC RDW Plt Count MPV Anticoagulation Therapy Puncture Site ABG pH ABG pCO2 at Pt Temp ABG pO2 at Pt Temp ABG HCO3 ABG O2 Sat (Measured) ABG O2 Content ABG Base Excess Dru Test O2 Delivery Device Oxygen Flow Rate Vent Mode Vent Rate Mechanical Rate Pressure Support Vent Sodium Potassium Chloride Carbon Dioxide Anion Gap BUN Creatinine Est GFR (CKD-EPI)AfAm Est GFR (CKD-EPI)NonAf POC Glucometer 84 78 Random Glucose Calcium Phosphorus Magnesium Total Bilirubin AST ALT Alkaline Phosphatase LD Total Total Protein Albumin Lipase Urine Color Urine Appearance Urine pH Ur Specific [place] Urine Protein Urine Glucose (UA) Urine Ketones Urine Blood Urine Nitrite Urine Bilirubin Urine Urobilinogen Ur Leukocyte Esterase Urine WBC (Auto) Urine RBC (Auto) Urine Casts (Auto) U Epithel Cells (Auto) Urine Bacteria (Auto) Urine HCG, Qual Opiates Screen Methadone Screen Barbiturate Screen Phencyclidine Screen Ur Amphetamines Screen MDMA (Ecstasy) Screen Benzodiazepines Screen Cocaine Screen U Marijuana (THC) Screen Anti-A Titer Cancelled Blood Type Cancelled Antibody Screen Cancelled 10/20/19 10/20/19 10/20/19 06:10 06:10 06:10 WBC 5.1 RBC 3.29 L Hgb 11.1 Hct 32.3 L MCV 98.2 H MCH 33.6 MCHC 34.2 RDW 12.6 Plt Count 190 MPV 9.7 Anticoagulation Therapy Puncture Site ABG pH ABG pCO2 at Pt Temp ABG pO2 at Pt Temp ABG HCO3 ABG O2 Sat (Measured) ABG O2 Content ABG Base Excess Dru Test O2 Delivery Device Oxygen Flow Rate Vent Mode Vent Rate Mechanical Rate Pressure Support Vent Sodium 141 Potassium 3.7 Chloride 111 H Carbon Dioxide 22 Anion Gap 9 BUN 12.0 Creatinine 0.9 Est GFR (CKD-EPI)AfAm 100.14 Est GFR (CKD-EPI)NonAf 86.41 POC Glucometer Random Glucose 75 Calcium 8.3 L Phosphorus 3.6 Magnesium 1.8 Total Bilirubin 0.3 AST 14 L ALT 11 L Alkaline Phosphatase 115 LD Total Total Protein 8.0 Albumin 2.4 L Lipase Urine Color Urine Appearance Urine pH Ur Specific [place] Urine Protein Urine Glucose (UA) Urine Ketones Urine Blood Urine Nitrite Urine Bilirubin Urine Urobilinogen Ur Leukocyte Esterase Urine WBC (Auto) Urine RBC (Auto) Urine Casts (Auto) U Epithel Cells (Auto) Urine Bacteria (Auto) Urine HCG, Qual Opiates Screen Methadone Screen Barbiturate Screen Phencyclidine Screen Ur Amphetamines Screen MDMA (Ecstasy) Screen Benzodiazepines Screen Cocaine Screen U Marijuana (THC) Screen Anti-A Titer Blood Type B POSITIVE Antibody Screen Negative Active Medications Generic Name Dose Route Start Last Admin Trade Name Freq PRN Reason Stop Dose Admin Acetaminophen 1,000 mg 10/19/19 16:28 Ofirmev Injection - IVPB Q6H PRN PAIN LEVEL 1 - 3 Albuterol/Ipratropium 1 amp 10/19/19 18:23 Duoneb - NEB Q6H PRN SHORTNESS OF BREATH Dextrose/Sodium Chloride 1,000 mls @ 75 mls/hr 10/20/19 01:30 10/20/19 02:00 D5-1/2ns - IV 75 mls/hr ASDIR KIERAN Administration Ceftriaxone Sodium 2 gm/ 100 mls @ 200 mls/hr 10/20/19 10:00 Dextrose IVPB DAILY KIERAN Protocol Morphine Sulfate 2 mg 10/19/19 16:23 10/20/19 06:00 Morphine Sulfate IVPUSH 2 mg Q4H PRN Administration PAIN LEVEL 7 - 10 Ondansetron HCl 4 mg 10/19/19 16:25 Zofran Injection IVPUSH Q6H PRN NAUSEA AND/OR VOMITING Pantoprazole Sodium 40 mg 10/19/19 16:30 10/19/19 19:20 Protonix Iv IVPUSH 40 mg DAILY KIERAN Administration ASSESSMENT/PLAN: Problem List - Problems (1) RLL pneumonia Assessment/Plan: acute pneumonia of RLL per chest ct on ceftriaxone and mepron multiple allergies to antibiotics monitor oxygen saturations Code(s): J18.9 - PNEUMONIA, UNSPECIFIED ORGANISM Qualifiers: Pneumonia type: due to unspecified organism Qualified Code(s): J18.9 - Pneumonia, unspecified organism (2) Abdominal pain Assessment/Plan: ultrasound shoes gallstone measuring 1.9 cm with questionable tiny stones seen by surgery and per surgery, patient does not appear to have cholecystitis currently. ordered on clears to be advanced to low fat as patient tolerates may need elective surgery if continues to have abd pain once acute pneumonia resolved Code(s): R10.9 - UNSPECIFIED ABDOMINAL PAIN (3) Immunosuppressed status Assessment/Plan: patient presents with weakness, wet cough (non productive). Concern for infectious pulmonary process in this immunocompromised patient, no evidence of asthma exacerbation currently. chest ct showed acute pneumonia. on ceftriaxone and mepron no airway compromise tolerating room air, but can get 2 liters prn monitor cd4 29 Code(s): D89.9 - DISORDER INVOLVING THE IMMUNE MECHANISM, UNSPECIFIED (4) Cough Assessment/Plan: patient with acute pneumonia. Code(s): R05 - COUGH (5) SOB (shortness of breath) Assessment/Plan: on supplemental oxygen abg ordered Code(s): R06.02 - SHORTNESS OF BREATH (6) Cannabis dependence Code(s): F12.20 - CANNABIS DEPENDENCE, UNCOMPLICATED (7) HIV (human immunodeficiency virus infection) Assessment/Plan: last cd4 count 104 01/2019 repeat immunology shows cd4 count 29 ID consulted Code(s): B20 - HUMAN IMMUNODEFICIENCY VIRUS [HIV] DISEASE (8) AIDS (acquired immunodeficiency syndrome), CD4 <=200 Code(s): B20 - HUMAN IMMUNODEFICIENCY VIRUS [HIV] DISEASE (9) Calculus of gallbladder w/o mention of cholecystitis or obstruction Code(s): K80.20 - CALCULUS OF GALLBLADDER W/O CHOLECYSTITIS W/O OBSTRUCTION Qualifiers: Cholecystitis presence: without cholecystitis Biliary obstruction: without biliary obstruction Qualified Code(s): K80.20 - Calculus of gallbladder without cholecystitis without obstruction (10) DVT prophylaxis Assessment/Plan: on heparin bid Code(s): GOF2161 - Visit type - Emergency Visit Emergency Visit: Yes ED Registration Date: 10/19/19 Care time: The patient presented to the Emergency Department on the above date and was hospitalized for further evaluation of their emergent condition. - New Patient This patient is new to me today: No - Critical Care Critical Care patient: No - Discharge Referral Referred to [facility] Med P.C.: No
[2019-10-20] MEDS ORDERED: CEFTRIAXONE 1 GM in DEXTROSE 5%-WATER - 50 ML IVPB SCH (10:00)
[2019-10-20] MEDS ORDERED: DEXTROSE 5%-WATER 100 ML IVPB ONE (10:35)
[2019-10-20] MEDS: PANTOPRAZOLE SODIUM 40 MG VIAL IVPUSH SCH (10:44)
[2019-10-20] MEDS: CEFTRIAXONE 2 GM in DEXTROSE 5%-WATER 100 ML IVPB SCH (10:44)
[2019-10-20] MEDS ORDERED: LISINOPRIL 5 MG TABLET (FP) PO ONE (10:50)
--- NOTE | 2019-10-20 12:03 | PN ---
Progress Note (short form) - Note Progress Note: PULMONARY CONSULTATION DICTATED 10/20/19 IMP RLL PNEUMONIA HIV/AIDS ASTHMA SMOKER PLAN IV ABX PER ID INHALED BRONCHODILATORS O2 NEEDED CULTURES LEGIONELLA URINARY ANTIGEN DR GARCIA Problem List - Problems (1) HIV (human immunodeficiency virus infection) Code(s): B20 - HUMAN IMMUNODEFICIENCY VIRUS [HIV] DISEASE (2) Immunosuppressed status Code(s): D89.9 - DISORDER INVOLVING THE IMMUNE MECHANISM, UNSPECIFIED (3) Abnormal chest CT Code(s): R93.89 - ABNORMAL FINDINGS ON DX IMAGING OF OTH BODY STRUCTURES (4) Cough Code(s): R05 - COUGH (5) SOB (shortness of breath) Code(s): R06.02 - SHORTNESS OF BREATH (6) Asthma Code(s): J45.909 - UNSPECIFIED ASTHMA, UNCOMPLICATED Qualifiers: Asthma severity: mild Asthma persistence: intermittent Asthma complication type: unspecified Qualified Code(s): J45.20 - Mild intermittent asthma, uncomplicated (7) Cannabis dependence Code(s): F12.20 - CANNABIS DEPENDENCE, UNCOMPLICATED (8) Hypertension Code(s): I10 - ESSENTIAL (PRIMARY) HYPERTENSION Qualifiers: Hypertension type: essential hypertension Qualified Code(s): I10 - Essential (primary) hypertension (9) Nicotine dependence Code(s): F17.200 - NICOTINE DEPENDENCE, UNSPECIFIED, UNCOMPLICATED Qualifiers: Nicotine product type: cigarettes (10) Pneumonia Code(s): J18.9 - PNEUMONIA, UNSPECIFIED ORGANISM
[2019-10-20 12:10] LABS: INR 1.03 (0.83-1.09); PROTHROMBIN TIME (PATIENT) 12.2 SEC (9.7-13.0)
--- NOTE | 2019-10-20 13:57 | CONSULT ---
Consult Consult Specialty:: General Surgery Referred by:: Carolyn Pierre NP Reason for Consultation:: gallstones, abd pain/tenderness - History of Present Illness Chief Complaint: cough, sputum, pneumonia; also some abdominal pain History of Present Illness: 29yo F with HTN, asthma, HIV formerly on HAART, not currently on any meds, was admitted to medicine through ER for likely pneumonia. She was recently at [facility] with same, and has had about a week and a half of productive cough with yellow/clement sputum, SOB, headaches and "feeling cold" (she does all the time). She also has noted abdominal pain, indicating bilateral lower sides, at home and in hospital, but denies N/V. Last BM 3-4 days ago, was both loose and then hard, but denies constipation or diarrhea in general. She does believe abdominal pain occurs after eating fast food. In ER, wbc was 5, alk phos was 124, slightly over normal (normal today), other LFTs and lipase were normal, and she was afebrile. She had US showing 1.9cm gallstone but no clear cholecystitis. CT was done of chest and abd/pelvis showing RLL pneumonia, contracted gallbladder with some pericholecystic fluid but stone not visible, no ductal dilation, and a cyst in the liver. Surgery was asked to assess. She is on antibiotics per ID for the pneumonia, and is NPO except meds, but did eat while in the ER. She is seen and examined in her room. She states she is hungry. Has been drinking water, and has soup from outside to have. When asked about abdominal pain, she indicated bilateral lower sides and gave the above history. She does not think the pain is from coughing. She did come in primarily for the pneumonia. ID and pulm consults noted. - History Source History Provided By: Patient Limitations to Obtaining History: Poor Historian - Past Medical History Cardio/Vascular: Yes: HTN Pulmonary: Yes: Asthma, Pneumonia ...: No Infectious Disease: Yes: HIV, MRSA - Past Surgical History Additional Surgical History: ear surgery for MRSA infection - Alcohol/Substance Use Hx Alcohol Use: No History of Substance Use: reports: Marijuana - Smoking History Smoking history: Current every day smoker Have you smoked in the past 12 months: Yes Aproximately how many cigarettes per day: 3 (pt denies using more) - Social History Usual Living Arrangement: Other (with friend) ADL: Independent Home Medications - Allergies Allergies/Adverse Reactions: Allergies Allergy/AdvReac Type Severity Reaction Status Date / Time Fish Containing Products Allergy Severe Swelling Verified 10/19/19 06:39 vancomycin Allergy Severe Swelling Verified 10/19/19 06:39 sulfamethoxazole Allergy Intermediate fever, Verified 10/19/19 06:39 [From Bactrim] abnl lfts trimethoprim [From Bactrim] Allergy Intermediate fever, Verified 10/19/19 06:39 abnl lfts clindamycin Allergy Itching Verified 10/19/19 06:39 - Home Medications Home Medications: Ambulatory Orders NK [No Known Home Medication] 10/19/19 Home Medications (free text): not currently on any of her usual meds Family Medical History Family History: Unremarkable (noncontributory) Review of Systems - Review of Systems Constitutional: reports: Chills (? - "I'm always cold"). denies: Fever, Loss of Appetite Eyes: reports: Other (wears glasses). denies: Recent Change in Vision HENT: denies: Difficult Swallowing, Nasal Congestion, Throat Pain Neck: denies: Pain on Movement, Stiffness, Swollen Glands Cardiovascular: denies: Chest Pain, Palpitations Respiratory: reports: Cough, SOB Gastrointestinal: reports: Abdominal Pain, Constipation (no BM for 3-4 days - both loose and hard at last BM). denies: Nausea, Vomiting Genitourinary: denies: Burning, Dysuria Musculoskeletal: reports: Back Pain. denies: Extremity Pain, Joint Swelling Integumentary: denies: Change in Color, Rash Neurological: reports: Headache. denies: Dizziness, Unsteady Gait Endocrine: reports: Intolerance to Cold Physical Exam Vital Signs: Vital Signs Temperature 98.5 F 10/20/19 12:59 Pulse Rate 86 10/20/19 12:59 Respiratory Rate 18 10/20/19 12:59 Blood Pressure 149/77 10/20/19 12:59 O2 Sat by Pulse Oximetry (%) 99 10/20/19 09:00 Constitutional: Yes: No Distress, Calm, Obese Eyes: Yes: Conjunctiva Clear, EOM Intact. No: Sclera Icterus HENT: Yes: Atraumatic, Normocephalic Neck: Yes: Supple, Trachea Midline Cardiovascular: Yes: Tachycardia (mild). No: Pulse Irregular Respiratory: Yes: Regular, Cough, Diminished (right side, more diminished in lower half), Other (clement sputum) Gastrointestinal: Yes: Normal Bowel Sounds, Soft, Abdomen, Obese, Tenderness ( mild RUQ, RLQ, not so much LLQ, not at all LUQ), Tenderness, Epigastrium. No: Tenderness, Rebound (no kenn/guard) ...Rectal Exam: Yes: Deferred Renal/: Yes: CVA Tenderness - Right (mild?). No: CVA Tenderness - Left Musculoskeletal: Yes: Back Pain (tender over mid to lower spine). No: Joint Swelling Extremities: No: Cool, Cyanosis Edema: No Peripheral Pulses WNL: Yes Integumentary: No: Jaundice, Rash Neurological: Yes: Alert, Oriented. No: Unsteady Gait Psychiatric: Yes: Alert, Oriented Labs: CBC, BMP 10/20/19 06:10 10/20/19 06:10 CMP Sodium 141 mmol/L (136-145) 10/20/19 06:10 Potassium 3.7 mmol/L (3.5-5.1) 10/20/19 06:10 Chloride 111 mmol/L (98-107) H 10/20/19 06:10 Carbon Dioxide 22 mmol/L (21-32) 10/20/19 06:10 Anion Gap 9 MMOL/L (8-16) 10/20/19 06:10 BUN 12.0 mg/dL (7-18) 10/20/19 06:10 Creatinine 0.9 mg/dL (0.55-1.3) 10/20/19 06:10 Est GFR (CKD-EPI)AfAm 100.14 10/20/19 06:10 Est GFR (CKD-EPI)NonAf 86.41 10/20/19 06:10 POC Glucometer 74 UNITS (80-120) 10/20/19 12:03 Random Glucose 75 mg/dL (74-106) 10/20/19 06:10 Lactic Acid 0.9 mmol/L (0.4-2.0) 10/19/19 07:34 Calcium 8.3 mg/dL (8.5-10.1) L 10/20/19 06:10 Phosphorus 3.6 mg/dL (2.5-4.9) 10/20/19 06:10 Magnesium 1.8 mg/dL (1.8-2.4) 10/20/19 06:10 Total Bilirubin 0.3 mg/dL (0.2-1) 10/20/19 06:10 AST 14 U/L (15-37) L 10/20/19 06:10 ALT 11 U/L (13-61) L 10/20/19 06:10 Alkaline Phosphatase 115 U/L (45-117) 10/20/19 06:10 LD Total 282 U/L (84-246) H 10/19/19 07:00 Troponin I < 0.02 ng/ml (0.00-0.05) 10/19/19 07:00 Total Protein 8.0 g/dl (6.4-8.2) 10/20/19 06:10 Albumin 2.4 g/dl (3.4-5.0) L 10/20/19 06:10 Lipase 125 U/L (73-393) 10/19/19 18:55 INR, PTT INR 1.03 (0.83-1.09) 10/20/19 11:08 Urine Test Results Urine Color Yellow 10/19/19 13:26 Urine Appearance Cloudy 10/19/19 13:26 Urine pH 6.5 (5.0-8.0) D 10/19/19 13:26 Ur Specific [place] 1.023 (1.010-1.035) 10/19/19 13:26 Urine Protein 3+ (NEGATIVE) H 10/19/19 13:26 Urine Glucose (UA) Negative (NEGATIVE) 10/19/19 13:26 Urine Ketones Negative (NEGATIVE) 10/19/19 13:26 Urine Blood Negative (NEGATIVE) 10/19/19 13:26 Urine Nitrite Negative (NEGATIVE) 10/19/19 13:26 Urine Bilirubin Negative (NEGATIVE) 10/19/19 13:26 Ur Leukocyte Esterase Negative (NEGATIVE) 10/19/19 13:26 Microbiology 10/20/19 03:10 Legionella Antigen - Final Urine - Urine Clean Catch Streptococcus pneumoniae Antigen (M - Preliminary 10/19/19 13:26 Urine Culture - Preliminary Urine - Urine Clean Catch Normal Urogenital Lyla 10/19/19 07:00 Blood Culture - Preliminary Blood - Peripheral Venous NO GROWTH OBTAINED AFTER 24 HOURS, INCUBATION TO CONTINUE FOR 4 DAYS. 10/19/19 07:30 Blood Culture - Preliminary Blood - Peripheral Venous NO GROWTH OBTAINED AFTER 24 HOURS, INCUBATION TO CONTINUE FOR 4 DAYS. legionella and strep presumptive negative Imaging - Results Cat Scan: Report Reviewed (right lower lobe pneumonia; gallbladder contracted with some pericholecystic fluid, no stone seen; cyst in liver, no biliary ductal dilation), Image Reviewed Ultrasound: Report Reviewed, Image Reviewed (1.9cm gallstone, no pericholecystic fluid, no ductal dilation, no wall thickening) Problem List - Problems (1) Calculus of gallbladder w/o mention of cholecystitis or obstruction Assessment/Plan: patient describes possible biliary colic symptoms, but does not appear to have cholecystitis at this time current pneumonia and level of immunosuppression would preclude elective cholecystectomy until medically optimized ordered clear liquids to start would advance to LOW FAT diet as tolerated discussed maintaining low-fat diet on discharge with patient, to minimize biliary symptoms would use nonnarcotics first line for pain prn prior to elective surgery, pt should also quit smoking for best possible outcomes Thank you for the opportunity to participate in the care of this patient. Will sign off - please re-call with questions as needed. Code(s): K80.20 - CALCULUS OF GALLBLADDER W/O CHOLECYSTITIS W/O OBSTRUCTION Qualifiers: Cholecystitis presence: without cholecystitis Biliary obstruction: without biliary obstruction Qualified Code(s): K80.20 - Calculus of gallbladder without cholecystitis without obstruction (2) RLL pneumonia Assessment/Plan: defer abx and tx to medicine, pulm, ID Code(s): J18.9 - PNEUMONIA, UNSPECIFIED ORGANISM Qualifiers: Pneumonia type: due to unspecified organism Qualified Code(s): J18.9 - Pneumonia, unspecified organism (3) AIDS (acquired immunodeficiency syndrome), CD4 <=200 Assessment/Plan: meds per ID Code(s): B20 - HUMAN IMMUNODEFICIENCY VIRUS [HIV] DISEASE (4) Hypertension Code(s): I10 - ESSENTIAL (PRIMARY) HYPERTENSION Qualifiers: Hypertension type: essential hypertension Qualified Code(s): I10 - Essential (primary) hypertension
--- NOTE | 2019-10-20 15:40 | CONS ---
DATE OF CONSULTATION: 10/20/2019 REFERRING PHYSICIAN: KATHRYN Bateman HISTORY OF PRESENT ILLNESS: Patient is a 29-year-old, female with past medical of chronic mild intermittent asthma maintained on inhaled bronchodilators, HIV, AIDS, noncompliant with medication, history of depression, patient of [facility], admitted to [facility] with complaints of generalized weakness, cough, and chills. She also complains of shortness of breath. Patient states, for the past couple of days, had complaints of cough, chest congestion, as well as right-sided chest discomfort. She presented to the emergency room with the above. In the ER, she was noted to be tachypneic, and slightly tachycardic, O2 saturations were 100%. She had an initial chest x-ray, which showed no acute infiltrate. Subsequently underwent a CAT scan of the chest, which revealed a right lower lobe consolidation. She was evaluated by Dr. Yañez and placed on broad-spectrum antibiotics. The patient has a history of tobacco use, smokes about 6 or 7 cigarettes a day. There is no history of occupational exposure to chemicals or fumes. She has never been intubated for asthma. PAST MEDICAL HISTORY: Again, includes HIV, noncompliant with medication, chronic mild intermittent asthma, as well as hypertension. REVIEW OF SYSTEMS: Positive cough. Positive chest congestion. Positive shortness of breath. Positive right-sided chest discomfort. No fever. No chills. No hemoptysis. No abdominal pain. CURRENT MEDICATIONS: Include Zofran, acetaminophen IV, ceftriaxone, DuoNeb, morphine, and Protonix. PHYSICAL EXAMINATION: General: Patient is a well-developed, nourished female, awake, alert, in no acute distress. Vital Signs: She is afebrile, O2 saturation is 99% on room air, heart rate is 86, and blood pressure 149/77. HEENT: Exam is normocephalic, atraumatic. Neck: Supple. Heart: Regular S1 and S2. Chest: A few crackles at the right base. Abdomen: Soft. Bowel sounds are positive. Extremities: No cyanosis or edema. LABORATORIES: WBC is 5.1, hemoglobin 11.1, hematocrit 32.3 with a platelet count of 190,000. Blood gas: PH of 7.42, PCO2 of 33, a PO2 of 84, bicarbonate 21, and a saturation of 96.2. Chemistries: BUN 12, creatinine 0.11. The patient's CD3 count is 171, CD4 count is 7.2, ratio is 0.22, absolute CD4 is 29. CAT scan, as noted earlier, with right lower lobe consolidation, mild mediastinal adenopathy. IMPRESSION: 1. Right lower lobe pneumonia. 2. Human immunodeficiency virus/acquired immunodeficiency syndrome. 3. Asthma. Not in acute exacerbation. 4. Smoker. PLAN: IV antibiotics, as per Infectious Disease. Inhaled bronchodilators. Supplemental O2. Pancultures with legionella urinary antigen, pneumococcal urinary antigen. Stress importance of compliance with HIV medication. ADRIAN GARCIA M.D. GUALBERTO/[id number]
--- NOTE | 2019-10-20 17:32 | PN ---
Progress Note (short form) - Note Progress Note: wants more to eat still coughing ct scan with RLL pneumonia Vital Signs Period Temp Pulse Resp BP Sys/Manriquez Pulse Ox Last 24 Hr 98.4 F-98.6 F 75-86 16-20 148-157/77-103 99-99 cor-rrr lungs bibasilar crackles right greater then left abd soft,nt ext no edema CBC, BMP 10/20/19 06:10 10/20/19 06:10 Microbiology 10/20/19 03:10 Urine - Urine Clean Catch Legionella Antigen - Final 10/20/19 03:10 Urine - Urine Clean Catch Streptococcus pneumoniae Antigen ( M - Preliminary 10/19/19 13:26 Urine - Urine Clean Catch Urine Culture - Preliminary Normal Urogenital Lyla 10/19/19 07:00 Blood - Peripheral Venous Blood Culture - Preliminary NO GROWTH OBTAINED AFTER 24 HOURS, INCUBATION TO CONTINUE FOR 4 DAYS. 10/19/19 07:30 Blood - Peripheral Venous Blood Culture - Preliminary NO GROWTH OBTAINED AFTER 24 HOURS, INCUBATION TO CONTINUE FOR 4 DAYS. cd4 29 a/p aids by ryan pneumonia continue rocephin/zithromax mepron resumed prezicobix and descovy resumed patient is willing to f/u at the [facility] multiple antibiotic allergies
[2019-10-20] MEDS: HEPARIN NA (PORCINE) 5,000 UNITS/ML 1ML VIAL SQ SCH (21:24)
[2019-10-21 06:35] LABS: BASO % 0.3 % (0-2.0); EOS % 1.5 % (0-4.5); HEMATOCRIT 31.7 % (32.4-45.2); HEMOGLOBIN 11.1 GM/dL (10.7-15.3); LYMPH % 6.4 % (8-40); MCH 34.2 pg (25.7-33.7); MCHC 35.1 g/dl (32.0-36.0); MEAN CELL VOLUME 97.3 fl (80-96); MEAN PLT VOLUME 9.4 fl (7.5-11.1); MONO % 9.7 % (3.8-10.2); NEUT % 82.1 % (42.8-82.8); PLATELET COUNT 193 K/MM3 (134-434); RBC 3.26 M/mm3 (3.60-5.2); RDW 12.3 % (11.6-15.6); WHITE BLOOD COUNT 4.7 K/mm3 (4.0-10.0)
[2019-10-21 06:55] LABS: ALBUMIN 2.3 g/dl (3.4-5.0); ALK PHOS 113 U/L (45-117); ANION GAP 8 MMOL/L (8-16); BILIRUBIN,TOTAL 0.3 mg/dL (0.2-1); BLOOD UREA NITROGEN 10.2 mg/dL (7-18); CALCIUM 8.3 mg/dL (8.5-10.1); CHLORIDE 108 mmol/L (98-107); CO2 24 mmol/L (21-32); CREATININE 0.9 mg/dL (0.55-1.3); GLUCOSE,RANDOM 76 mg/dL (74-106); MAGNESIUM 1.7 mg/dL (1.8-2.4); POTASSIUM 3.6 mmol/L (3.5-5.1); SGOT/AST 12 U/L (15-37); SGPT/ALT 10 U/L (13-61); SODIUM 139 mmol/L (136-145); TOT PROT 8.1 g/dl (6.4-8.2)
[2019-10-21] MEDS ORDERED: MAGNESIUM OXIDE 400 MG TABLET (FP) PO ONE (08:07)
[2019-10-21] MEDS ORDERED: PT OWN MED DRAWER 7, Y5N ONE (09:05)
[2019-10-21] MEDS: ATOVAQUONE 750 MG/5 ML (UNIT-DOSE PACKAGING) PO SCH (09:12)
[2019-10-21] MEDS: MORPHINE SULFATE 2 MG/ML VIAL IVPUSH PRN ×2 (09:12→18:50)
--- NOTE | 2019-10-21 09:13 | PN ---
Physical Exam: SUBJECTIVE: Patient seen and examined at the bedside. has been having mid sternal chest pain "pressure" since last night with headaches. also reports throat pain and cough. OBJECTIVE: chest pain: will trend troponins, ekg, chest xray and echo. if any trops + will transition patient to tele and consult cardiology Patient is a 29 year old female with a significant past medical history of asthma (no hospitalizations since childhood, and no intubations) and HIV was on HAART, but has been non compliant. Patient reports to the ED with complaints of generalized weakness, wet cough, malaise, body aches, chills and fever for the last 2 weeks. She admits to a productive cough for the past week with dark brown phlegm. She also reports abdominal pain and tenderness and had an episode of non bloody, non bili emesis in the ED. Found to have gall stones, but no surgical interventions recommended. Patient reports having chest pain "pressure" that began last night. chest pain mid sternal, and radiates to her back, associated with headaches. no shortness of breath or diaphoresis. chest pain worse with cough. Vital Signs Period Temp Pulse Resp BP Sys/Manriquez Pulse Ox Last 24 Hr 98.0 F-99.7 F 75-99 16-18 149-159/77-108 100 GENERAL: The patient is awake, alert, and fully oriented, in no acute distress. HEAD: Normal with no signs of trauma. EYES: PERRL, extraocular movements intact, sclera anicteric, conjunctiva clear. No ptosis. ENT: Ears normal, nares patent, oropharynx clear without exudates, moist mucous membranes. NECK: Trachea midline, full range of motion, supple. LUNGS: upper lobes clear, bilateral lobes diminished. tolerating room air. HEART: Regular rate and rhythm ABDOMEN: Soft, tender, nondistended, normoactive bowel sounds EXTREMITIES: no edema. NEUROLOGICAL: Normal speech, gait not observed. PSYCH: Normal mood, normal affect. SKIN: Warm, dry, normal turgor, no rashes or lesions noted Laboratory Results - last 24 hr 10/19/19 10/20/19 10/20/19 10:10 11:08 12:03 WBC 4.8 RBC Hgb Hct MCV MCH MCHC RDW Plt Count MPV Absolute Neuts (auto) Absolute Lymphs (auto) 0.4 L Neutrophils % Lymphocytes % Monocytes % Eosinophils % Basophils % Nucleated RBC % Lymphocytes 8 Nucleated RBCs TNP PT with INR 12.20 INR 1.03 Sodium Potassium Chloride Carbon Dioxide Anion Gap BUN Creatinine Est GFR (CKD-EPI)AfAm Est GFR (CKD-EPI)NonAf POC Glucometer 74 Random Glucose Calcium Magnesium Total Bilirubin AST ALT Alkaline Phosphatase Total Protein Albumin Absolute CD3 Count 171 L % CD3+ Lymphocytes 42.8 L Absolute CD4 [place] 29 L % CD4+ Lymphocyte 7.2 L CD4/CD8 Ratio 0.22 L % CD8+ Lymphocyte 33.2 Absolute CD8 Count 133 10/20/19 10/21/19 10/21/19 17:21 05:30 05:30 WBC 4.7 RBC 3.26 L Hgb 11.1 Hct 31.7 L MCV 97.3 H MCH 34.2 H MCHC 35.1 RDW 12.3 Plt Count 193 MPV 9.4 Absolute Neuts (auto) 3.8 Absolute Lymphs (auto) Neutrophils % 82.1 Lymphocytes % 6.4 L Monocytes % 9.7 Eosinophils % 1.5 Basophils % 0.3 Nucleated RBC % 0 Lymphocytes Nucleated RBCs PT with INR INR Sodium 139 Potassium 3.6 Chloride 108 H Carbon Dioxide 24 Anion Gap 8 BUN 10.2 Creatinine 0.9 Est GFR (CKD-EPI)AfAm 100.14 Est GFR (CKD-EPI)NonAf 86.41 POC Glucometer 87 Random Glucose 76 Calcium 8.3 L Magnesium 1.7 L Total Bilirubin 0.3 AST 12 L ALT 10 L Alkaline Phosphatase 113 Total Protein 8.1 Albumin 2.3 L Absolute CD3 Count % CD3+ Lymphocytes Absolute CD4 [place] % CD4+ Lymphocyte CD4/CD8 Ratio % CD8+ Lymphocyte Absolute CD8 Count Active Medications Generic Name Dose Route Start Last Admin Trade Name Freq PRN Reason Stop Dose Admin Acetaminophen 1,000 mg 10/19/19 16:28 Ofirmev Injection - IVPB Q6H PRN PAIN LEVEL 1 - 3 Albuterol/Ipratropium 1 amp 10/19/19 18:23 Duoneb - NEB Q6H PRN SHORTNESS OF BREATH Atovaquone 1,500 mg 10/21/19 08:00 Mepron - PO DAILY@0800 [facility] Heparin Sodium (Porcine) 5,000 unit 10/20/19 22:00 10/20/19 21:24 Heparin - SQ 5,000 unit BID KIERAN Administration Ceftriaxone Sodium 2 gm/ 100 mls @ 200 mls/hr 10/20/19 10:00 10/20/19 10:44 Dextrose IVPB 200 mls/hr DAILY KIERAN Administration Protocol Morphine Sulfate 2 mg 10/19/19 16:23 10/20/19 06:00 Morphine Sulfate IVPUSH 2 mg Q4H PRN Administration PAIN LEVEL 7 - 10 Ondansetron HCl 4 mg 10/19/19 16:25 Zofran Injection IVPUSH Q6H PRN NAUSEA AND/OR VOMITING Pantoprazole Sodium 40 mg 10/19/19 16:30 10/20/19 10:44 Protonix Iv IVPUSH 40 mg DAILY KIERAN Administration ASSESSMENT/PLAN: Problem List - Problems (1) Chest pain Assessment/Plan: chest pain began last night, mid sternal will trend troponins, ekg and order echo. chest xray also ordered monitor, if pain persists, will place patient on tele Code(s): R07.9 - CHEST PAIN, UNSPECIFIED (2) RLL pneumonia Assessment/Plan: acute pneumonia of RLL per chest ct on ceftriaxone and mepron multiple allergies to antibiotics monitor oxygen saturations, tolerating room air Code(s): J18.9 - PNEUMONIA, UNSPECIFIED ORGANISM Qualifiers: Pneumonia type: due to unspecified organism Qualified Code(s): J18.9 - Pneumonia, unspecified organism (3) Abdominal pain Assessment/Plan: ultrasound shoes gallstone measuring 1.9 cm with questionable tiny stones seen by surgery and per surgery, patient does not appear to have cholecystitis currently. ordered on clears to be advanced to low fat as patient tolerates may need elective surgery if continues to have abd pain once acute pneumonia resolved Code(s): R10.9 - UNSPECIFIED ABDOMINAL PAIN (4) Immunosuppressed status Assessment/Plan: patient presents with weakness, wet cough (non productive). Concern for infectious pulmonary process in this immunocompromised patient, no evidence of asthma exacerbation currently. chest ct showed acute pneumonia. on ceftriaxone and mepron no airway compromise cd4 29 Code(s): D89.9 - DISORDER INVOLVING THE IMMUNE MECHANISM, UNSPECIFIED (5) Cough Assessment/Plan: patient with RLL acute pneumonia. pulmonary following Code(s): R05 - COUGH (6) SOB (shortness of breath) Assessment/Plan: on supplemental oxygen abg noted, no co2 retention tolerating room air, stable Code(s): R06.02 - SHORTNESS OF BREATH (7) Cannabis dependence Code(s): F12.20 - CANNABIS DEPENDENCE, UNCOMPLICATED (8) HIV (human immunodeficiency virus infection) Assessment/Plan: last cd4 count 104 01/2019 repeat immunology shows cd4 count 29 restarted on antivirals Code(s): B20 - HUMAN IMMUNODEFICIENCY VIRUS [HIV] DISEASE (9) AIDS (acquired immunodeficiency syndrome), CD4 <=200 Assessment/Plan: started on antivirals. for f/u at [facility] on discharge Code(s): B20 - HUMAN IMMUNODEFICIENCY VIRUS [HIV] DISEASE (10) Calculus of gallbladder w/o mention of cholecystitis or obstruction Code(s): K80.20 - CALCULUS OF GALLBLADDER W/O CHOLECYSTITIS W/O OBSTRUCTION Qualifiers: Cholecystitis presence: without cholecystitis Biliary obstruction: without biliary obstruction Qualified Code(s): K80.20 - Calculus of gallbladder without cholecystitis without obstruction (11) DVT prophylaxis Assessment/Plan: on heparin bid Code(s): [id number] - Visit type - Emergency Visit Emergency Visit: Yes ED Registration Date: 10/19/19 Care time: The patient presented to the Emergency Department on the above date and was hospitalized for further evaluation of their emergent condition. - New Patient This patient is new to me today: No - Critical Care Critical Care patient: No - Discharge Referral Referred to [facility] Med P.C.: No
[2019-10-21] MEDS ORDERED: DEXTROSE 5%-WATER 100 ML IVPB ONE (10:00)
--- NOTE | 2019-10-21 10:49 | PN ---
Progress Note (short form) - Note Progress Note: Still with congested cough and pleuritic type CP. No acute events overnight. No hemoptysis. Intake & Output 10/18/19 10/19/19 10/20/19 10/21/19 23:59 23:59 23:59 23:59 Intake Total 1640 120 Balance 1640 120 Weight 224 lb 6.4 oz 224 lb 6.4 oz Last Vital Signs Temp Pulse Resp BP Pulse Ox 98.0 F 96 H 18 159/108 H 100 10/21/19 08:35 10/21/19 08:35 10/21/19 08:35 10/21/19 08:35 10/20/19 21:00 Active Medications Acetaminophen (Ofirmev Injection -) 1,000 mg IVPB Q6H PRN PRN Reason: PAIN LEVEL 1 - 3 Albuterol/Ipratropium (Duoneb -) 1 amp NEB Q6H PRN PRN Reason: SHORTNESS OF BREATH Amlodipine Besylate (Norvasc -) 5 mg PO DAILY [facility] Atovaquone (Mepron -) 1,500 mg PO DAILY@0800 [facility] Last Admin: 10/21/19 09:12 Dose: 1,500 mg Heparin Sodium (Porcine) (Heparin -) 5,000 unit SQ BID [facility] Last Admin: 10/20/19 21:24 Dose: 5,000 unit Ceftriaxone Sodium 2 gm/ (Dextrose) 100 mls @ 200 mls/hr IVPB DAILY [facility]; Protocol Last Admin: 10/20/19 10:44 Dose: 200 mls/hr Morphine Sulfate (Morphine Sulfate) 2 mg IVPUSH Q4H PRN PRN Reason: PAIN LEVEL 7 - 10 Last Admin: 10/21/19 09:12 Dose: 2 mg Ondansetron HCl (Zofran Injection) 4 mg IVPUSH Q6H PRN PRN Reason: NAUSEA AND/OR VOMITING Pantoprazole Sodium (Protonix Iv) 40 mg IVPUSH DAILY [facility] Last Admin: 10/20/19 10:44 Dose: 40 mg GENERAL: NAD HEAD: Normal with no signs of trauma. EYES: sclera anicteric, conjunctiva clear. No lid lag. EARS, NOSE, THROAT: Ears normal, nares patent, oropharynx clear without exudates. Moist mucous membranes. NECK: Normal range of motion, supple without lymphadenopathy, JVD, or masses. LUNGS: bilateral scattered rhonchi, no wheeze HEART: Regular rate and rhythm, ABDOMEN: Soft, tender to light palpation, not distended, normoactive bowel sounds MUSCULOSKELETAL: Normal range of motion at all joints. No bony deformities or tenderness. No CVA tenderness. UPPER EXTREMITIES: No peripheral edema. LOWER EXTREMITIES: No peripheral edema. SKIN: Warm, dry, normal turgor, no rashes or lesions noted, normal capillary refill. Laboratory Results - last 24 hr 10/19/19 10/20/19 10/20/19 10:10 11:08 12:03 WBC 4.8 RBC Hgb Hct MCV MCH MCHC RDW Plt Count MPV Absolute Neuts (auto) Absolute Lymphs (auto) 0.4 L Neutrophils % Lymphocytes % Monocytes % Eosinophils % Basophils % Nucleated RBC % Lymphocytes 8 Nucleated RBCs TNP PT with INR 12.20 INR 1.03 Sodium Potassium Chloride Carbon Dioxide Anion Gap BUN Creatinine Est GFR (CKD-EPI)AfAm Est GFR (CKD-EPI)NonAf POC Glucometer 74 Random Glucose Calcium Magnesium Total Bilirubin AST ALT Alkaline Phosphatase Troponin I Total Protein Albumin Absolute CD3 Count 171 L % CD3+ Lymphocytes 42.8 L Absolute CD4 [place] 29 L % CD4+ Lymphocyte 7.2 L CD4/CD8 Ratio 0.22 L % CD8+ Lymphocyte 33.2 Absolute CD8 Count 133 10/20/19 10/21/19 10/21/19 17:21 05:30 05:30 WBC 4.7 RBC 3.26 L Hgb 11.1 Hct 31.7 L MCV 97.3 H MCH 34.2 H MCHC 35.1 RDW 12.3 Plt Count 193 MPV 9.4 Absolute Neuts (auto) 3.8 Absolute Lymphs (auto) Neutrophils % 82.1 Lymphocytes % 6.4 L Monocytes % 9.7 Eosinophils % 1.5 Basophils % 0.3 Nucleated RBC % 0 Lymphocytes Nucleated RBCs PT with INR INR Sodium 139 Potassium 3.6 Chloride 108 H Carbon Dioxide 24 Anion Gap 8 BUN 10.2 Creatinine 0.9 Est GFR (CKD-EPI)AfAm 100.14 Est GFR (CKD-EPI)NonAf 86.41 POC Glucometer 87 Random Glucose 76 Calcium 8.3 L Magnesium 1.7 L Total Bilirubin 0.3 AST 12 L ALT 10 L Alkaline Phosphatase 113 Troponin I < 0.02 Total Protein 8.1 Albumin 2.3 L Absolute CD3 Count % CD3+ Lymphocytes Absolute CD4 [place] % CD4+ Lymphocyte CD4/CD8 Ratio % CD8+ Lymphocyte Absolute CD8 Count Problem List - Problems (1) HIV (human immunodeficiency virus infection) Code(s): B20 - HUMAN IMMUNODEFICIENCY VIRUS [HIV] DISEASE (2) Immunosuppressed status Code(s): D89.9 - DISORDER INVOLVING THE IMMUNE MECHANISM, UNSPECIFIED (3) Abnormal chest CT Code(s): R93.89 - ABNORMAL FINDINGS ON DX IMAGING OF OTH BODY STRUCTURES (4) Cough Code(s): R05 - COUGH (5) SOB (shortness of breath) Code(s): R06.02 - SHORTNESS OF BREATH (6) Asthma Code(s): J45.909 - UNSPECIFIED ASTHMA, UNCOMPLICATED Qualifiers: Asthma severity: mild Asthma persistence: intermittent Asthma complication type: unspecified Qualified Code(s): J45.20 - Mild intermittent asthma, uncomplicated (7) Cannabis dependence Code(s): F12.20 - CANNABIS DEPENDENCE, UNCOMPLICATED (8) Hypertension Code(s): I10 - ESSENTIAL (PRIMARY) HYPERTENSION Qualifiers: Hypertension type: essential hypertension Qualified Code(s): I10 - Essential (primary) hypertension (9) Nicotine dependence Code(s): F17.200 - NICOTINE DEPENDENCE, UNSPECIFIED, UNCOMPLICATED Qualifiers: Nicotine product type: cigarettes (10) Pneumonia Code(s): J18.9 - PNEUMONIA, UNSPECIFIED ORGANISM IMP RLL PNEUMONIA HIV/AIDS ASTHMA SMOKER PLAN IV ABX PER ID INHALED BRONCHODILATORS O2 NEEDED FOLLOW CULTURES CHECK URINARY ANTIGENS DR CORDOVA
[2019-10-21] MEDS: HEPARIN NA (PORCINE) 5,000 UNITS/ML 1ML VIAL SQ SCH ×2 (12:37→21:20)
[2019-10-21] MEDS: amLODIPine BESYLATE 5 MG TABLET (FP) PO SCH (12:38)
[2019-10-21] MEDS: PANTOPRAZOLE SODIUM 40 MG VIAL IVPUSH SCH (12:38)
[2019-10-21] MEDS: CEFTRIAXONE 2 GM in DEXTROSE 5%-WATER 100 ML IVPB SCH (12:39)
[2019-10-21] MEDS: EMTRICITABINE/TENOFOV ALAFENAM (DESCOVY) TABLET PO SCH (12:40)
[2019-10-21] MEDS: DARUNAVIR 800 MG/COBICISTAT 150MG TABLET PO SCH (12:40)
--- NOTE | 2019-10-21 14:39 | EKG ---
Test Reason : Blood Pressure : / mmHG Vent. Rate : 086 BPM Atrial Rate : 086 BPM P-R Int : 208 ms QRS Dur : 076 ms QT Int : 372 ms P-R-T Axes : 037 011 021 degrees QTc Int : 445 ms NORMAL SINUS RHYTHM NORMAL ECG WHEN COMPARED WITH ECG OF 19-OCT-2019 08:37, NO SIGNIFICANT CHANGE WAS FOUND Confirmed by DHAVAL ARTHUR MD ([id number]) on 10/21/2019 2:39:16 PM Referred By: JORGE DILLARD Confirmed By:DHAVAL ARTHUR MD
--- NOTE | 2019-10-21 15:45 | ECHO ---
Name: CELSA GARZA Exam:Adult Echocardiogram Study Date: 10/21/2019 11:16 AM Age: 29 yrs Height: 69 in Weight: 224 lb BSA: 2.2 m2 MMode/2D Measurements & Calculations IVSd: 1.1 cm Ao root diam: 3.4 cm LVIDd: 5.0 cm LA dimension: 3.9 cm LVIDs: 2.9 cm ACS: 2.4 cm LVPWd: 1.1 cm IVSs: 1.5 cm LVPWs: 1.4 cm EDV(Teich): 117.4 ml ESV(Teich): 33.3 ml Doppler Measurements & Calculations MV E max kranthi: 47.9 cm/sec Ao V2 max: 106.7 cm/sec MV A max kranthi: 46.2 cm/sec Ao max P.6 mmHg MV E/A: 1.0 Ao V2 mean: 80.1 cm/sec Ao mean P.7 mmHg Ao V2 VTI: 20.6 cm MR max kranthi: 549.5 cm/sec Med Peak E' Kranthi: 6.1 cm/sec MR max P.8 mmHg Med E/e': 7.8 Lat Peak E' Kranthi: 6.0 cm/sec Lat E/e': 7.9 Procedure A complete two-dimensional transthoracic echocardiogram was performed (2D, M-mode, Doppler and color flow Doppler). Left Ventricle The left ventricular size, thickness and function are normal. The left ventricular ejection fraction is normal. Ejection Fraction = 55-60%. The left ventricular wall motion is normal. Right Ventricle The right ventricle is normal in size and function. Atria Normal left and right atrial size and function. Mitral Valve There is no mitral regurgitation noted. Tricuspid Valve There is trace tricuspid regurgitation. There was insufficient TR detected to calculate RV systolic p ressure. Aortic Valve The aortic valve is trileaflet. No hemodynamically significant valvular aortic stenosis. No aortic regurgitation is present. Pulmonic Valve There is no pulmonic valvular regurgitation. Great Vessels The aortic root is normal size. Pericardium/Pleura There is no pericardial effusion. Interpretation Summary The left ventricular size, thickness and function are normal The right ventricle is normal in size and function. There is trace tricuspid regurgitation. MD Valentín Ceballos 10/21/2019 03:44 PM
[2019-10-22 06:50] LABS: BASO % 0.4 % (0-2.0); EOS % 0.9 % (0-4.5); HEMATOCRIT 32.1 % (32.4-45.2); HEMOGLOBIN 11.2 GM/dL (10.7-15.3); LYMPH % 8.3 % (8-40); MCH 33.8 pg (25.7-33.7); MCHC 34.9 g/dl (32.0-36.0); MEAN CELL VOLUME 96.9 fl (80-96); MEAN PLT VOLUME 9.5 fl (7.5-11.1); MONO % 11.7 % (3.8-10.2); NEUT % 78.7 % (42.8-82.8); PLATELET COUNT 194 K/MM3 (134-434); RBC 3.31 M/mm3 (3.60-5.2); RDW 12.4 % (11.6-15.6); WHITE BLOOD COUNT 3.2 K/mm3 (4.0-10.0)
[2019-10-22 07:09] LABS: EPI CELLS 3.3 /HPF (0-5/HPF); HYALINE CASTS 1 /lpf (0-8); PH,URINE 6.5 (5.0-8.0); URINE APPEARANCE CLEAR; URINE BACTERIA 39.2 /hpf (NEGATIVE); URINE BILIRUBIN NEGATIVE (NEGATIVE); URINE COLOR YELLOW; URINE GLUCOSE (UA) NEGATIVE (NEGATIVE); URINE KETONE NEGATIVE (NEGATIVE); URINE LEUK ESTERASE NEGATIVE (NEGATIVE); URINE NITRITE NEGATIVE (NEGATIVE); URINE PROTEIN 2+ (NEGATIVE); URINE RBC 0 /hpf (0-4); URINE UROBILINOGEN 0.2 mg/dL (0.2-1.0); URINE WBC 1 /hpf (0-5)
[2019-10-22 07:28] LABS: ALBUMIN 2.5 g/dl (3.4-5.0); BILIRUBIN,TOTAL 0.3 mg/dL (0.2-1); BLOOD UREA NITROGEN 8.5 mg/dL (7-18); CALCIUM 8.3 mg/dL (8.5-10.1); CREATININE 0.9 mg/dL (0.55-1.3); MAGNESIUM 1.9 mg/dL (1.8-2.4); POTASSIUM 3.6 mmol/L (3.5-5.1); TOT PROT 8.6 g/dl (6.4-8.2)
[2019-10-22] MEDS ORDERED: PT OWN MED DRAWER 7, Y5N ONE (08:36)
--- NOTE | 2019-10-22 08:36 | PN ---
Progress Note (short form) - Note Progress Note: still coughing constipation abdominal discomfort persists she is hungry and wants to eat ct scan with RLL pneumonia Vital Signs Period Temp Pulse Resp BP Sys/Manriquez Pulse Ox Last 24 Hr 97.9 F-98.8 F 81-99 16-20 144-159/86-108 96-97 cor-rrr lungs scattered rhonchi abd soft, bilateral upper quadrant discomfort ext no edema CBC, BMP 10/22/19 05:40 10/22/19 05:40 Microbiology 10/19/19 07:00 Blood - Peripheral Venous Blood Culture - Preliminary NO GROWTH OBTAINED AFTER 72 HOURS, INCUBATION TO CONTINUE FOR 2 DAYS. 10/19/19 07:30 Blood - Peripheral Venous Blood Culture - Preliminary NO GROWTH OBTAINED AFTER 72 HOURS, INCUBATION TO CONTINUE FOR 2 DAYS. 10/19/19 13:26 Urine - Urine Clean Catch Urine Culture - Final Normal Urogenital Lyla 10/20/19 03:10 Urine - Urine Clean Catch Legionella Antigen - Final 10/20/19 03:10 Urine - Urine Clean Catch Streptococcus pneumoniae Antigen ( M - Preliminary cd4 29 Active Medications Acetaminophen (Ofirmev Injection -) 1,000 mg IVPB Q6H PRN PRN Reason: PAIN LEVEL 1 - 3 Albuterol/Ipratropium (Duoneb -) 1 amp NEB Q6H PRN PRN Reason: SHORTNESS OF BREATH Last Admin: 10/21/19 13:11 Dose: 1 amp Amlodipine Besylate (Norvasc -) 5 mg PO DAILY [facility] Last Admin: 10/21/19 12:38 Dose: 5 mg Atovaquone (Mepron -) 1,500 mg PO DAILY@0800 [facility] Last Admin: 10/21/19 09:12 Dose: 1,500 mg Heparin Sodium (Porcine) (Heparin -) 5,000 unit SQ BID [facility] Last Admin: 10/21/19 21:20 Dose: 5,000 unit Ceftriaxone Sodium 2 gm/ (Dextrose) 100 mls @ 200 mls/hr IVPB DAILY [facility]; Protocol Last Admin: 10/21/19 12:39 Dose: 200 mls/hr Morphine Sulfate (Morphine Sulfate) 1 mg IVPUSH Q4H PRN PRN Reason: PAIN LEVEL 7 - 10 Last Admin: 10/21/19 18:50 Dose: 1 mg Ondansetron HCl (Zofran Injection) 4 mg IVPUSH Q6H PRN PRN Reason: NAUSEA AND/OR VOMITING Pantoprazole Sodium (Protonix Iv) 40 mg IVPUSH DAILY KIERAN Last Admin: 10/21/19 12:38 Dose: 40 mg a/p aids by ryan pneumonia-RLL continue rocephin/zithromax mepron resumed prezicobix and descovy resumed patient is willing to f/u at the [facility] multiple antibiotic allergies
[2019-10-22] MEDS: ATOVAQUONE 750 MG/5 ML (UNIT-DOSE PACKAGING) PO SCH (09:19)
[2019-10-22] MEDS ORDERED: DEXTROSE 5%-WATER 100 ML IVPB ONE (09:23)
[2019-10-22] MEDS: DARUNAVIR 800 MG/COBICISTAT 150MG TABLET PO SCH (09:34)
[2019-10-22] MEDS: amLODIPine BESYLATE 5 MG TABLET (FP) PO SCH (09:34)
[2019-10-22] MEDS: CEFTRIAXONE 2 GM in DEXTROSE 5%-WATER 100 ML IVPB SCH (09:35)
[2019-10-22] MEDS: EMTRICITABINE/TENOFOV ALAFENAM (DESCOVY) TABLET PO SCH (09:35)
[2019-10-22] MEDS: HEPARIN NA (PORCINE) 5,000 UNITS/ML 1ML VIAL SQ SCH (09:35)
[2019-10-22] MEDS: PANTOPRAZOLE SODIUM 40 MG VIAL IVPUSH SCH (09:35)
--- NOTE | 2019-10-22 09:44 | PN ---
Physical Exam: SUBJECTIVE: Patient seen and examined at the bedside. developed an episode of epistaxis overnight. OBJECTIVE: Patient is a 29 year old female with a significant past medical history of asthma (no hospitalizations since childhood, and no intubations) and HIV was on HAART, but has been non compliant. Patient reports to the ED with complaints of generalized weakness, wet cough, malaise, body aches, chills and fever for the last 2 weeks. She admits to a productive cough for the past week with dark brown phlegm. She also reports abdominal pain and tenderness and had an episode of non bloody, non bili emesis in the ED. Found to have gall stones, but no surgical interventions recommended. Vital Signs Period Temp Pulse Resp BP Sys/Manriquez Pulse Ox Last 24 Hr 97.9 F-98.8 F 81-92 16-20 144-157/86-106 97 GENERAL: The patient is awake, alert, and fully oriented, in no acute distress. HEAD: Normal with no signs of trauma. EYES: PERRL, extraocular movements intact, sclera anicteric, conjunctiva clear. No ptosis. ENT: Ears normal, nares patent, oropharynx clear without exudates, moist mucous membranes. NECK: Trachea midline, full range of motion, supple. LUNGS: upper lobes clear, bilateral lobes diminished. tolerating room air. HEART: Regular rate and rhythm ABDOMEN: Soft, nontender, nondistended, normoactive bowel sounds EXTREMITIES: no edema. NEUROLOGICAL: Normal speech, gait not observed. PSYCH: Normal mood, normal affect. SKIN: Warm, dry, normal turgor, no rashes or lesions noted Laboratory Results - last 24 hr 10/21/19 10/21/19 10/21/19 05:30 13:21 17:30 WBC RBC Hgb Hct MCV MCH MCHC RDW Plt Count MPV Absolute Neuts (auto) Neutrophils % Lymphocytes % Monocytes % Eosinophils % Basophils % Nucleated RBC % Sodium Potassium Chloride Carbon Dioxide Anion Gap BUN Creatinine Est GFR (CKD-EPI)AfAm Est GFR (CKD-EPI)NonAf Random Glucose Calcium Magnesium Total Bilirubin AST ALT Alkaline Phosphatase Troponin I < 0.02 < 0.02 < 0.02 Total Protein Albumin Urine Color Urine Appearance Urine pH Ur Specific [place] Urine Protein Urine Glucose (UA) Urine Ketones Urine Blood Urine Nitrite Urine Bilirubin Urine Urobilinogen Ur Leukocyte Esterase Urine WBC (Auto) Urine RBC (Auto) Urine Casts (Auto) U Epithel Cells (Auto) Urine Bacteria (Auto) 10/21/19 10/22/19 10/22/19 21:15 05:40 05:40 WBC 3.2 L RBC 3.31 L Hgb 11.2 Hct 32.1 L MCV 96.9 H MCH 33.8 H MCHC 34.9 RDW 12.4 Plt Count 194 MPV 9.5 Absolute Neuts (auto) 2.5 Neutrophils % 78.7 Lymphocytes % 8.3 D Monocytes % 11.7 H Eosinophils % 0.9 Basophils % 0.4 Nucleated RBC % 0 Sodium 137 Potassium 3.6 Chloride 104 Carbon Dioxide 25 Anion Gap 8 BUN 8.5 Creatinine 0.9 Est GFR (CKD-EPI)AfAm 100.14 Est GFR (CKD-EPI)NonAf 86.41 Random Glucose 80 Calcium 8.3 L Magnesium 1.9 Total Bilirubin 0.3 AST 16 ALT 12 L Alkaline Phosphatase 110 Troponin I Total Protein 8.6 H Albumin 2.5 L Urine Color Yellow Urine Appearance Clear Urine pH 6.5 Ur Specific [place] 1.012 Urine Protein 2+ H Urine Glucose (UA) Negative Urine Ketones Negative Urine Blood Negative Urine Nitrite Negative Urine Bilirubin Negative Urine Urobilinogen 0.2 Ur Leukocyte Esterase Negative Urine WBC (Auto) 1 Urine RBC (Auto) 0 Urine Casts (Auto) 1 U Epithel Cells (Auto) 3.3 Urine Bacteria (Auto) 39.2 Active Medications Generic Name Dose Route Start Last Admin Trade Name Freq PRN Reason Stop Dose Admin Acetaminophen 1,000 mg 10/19/19 16:28 Ofirmev Injection - IVPB Q6H PRN PAIN LEVEL 1 - 3 Albuterol/Ipratropium 1 amp 10/19/19 18:23 10/21/19 13:11 Duoneb - NEB 1 amp Q6H PRN Administration SHORTNESS OF BREATH Amlodipine Besylate 5 mg 10/21/19 10:00 10/22/19 09:34 Norvasc - PO 5 mg DAILY KEIRAN Administration Atovaquone 1,500 mg 10/21/19 08:00 10/22/19 09:19 Mepron - PO 1,500 mg DAILY@0800 KIERAN Administration Heparin Sodium (Porcine) 5,000 unit 10/20/19 22:00 10/22/19 09:35 Heparin - SQ 5,000 unit BID KIERAN Administration Ceftriaxone Sodium 2 gm/ 100 mls @ 200 mls/hr 10/20/19 10:00 10/22/19 09:35 Dextrose IVPB 200 mls/hr DAILY KIERAN Administration Protocol Morphine Sulfate 1 mg 10/21/19 16:52 10/21/19 18:50 Morphine Sulfate IVPUSH 1 mg Q4H PRN Administration PAIN LEVEL 7 - 10 Ondansetron HCl 4 mg 10/19/19 16:25 Zofran Injection IVPUSH Q6H PRN NAUSEA AND/OR VOMITING Pantoprazole Sodium 40 mg 10/19/19 16:30 10/22/19 09:35 Protonix Iv IVPUSH 40 mg DAILY KIERAN Administration ASSESSMENT/PLAN: Problem List - Problems (1) Mild epistaxis Assessment/Plan: stop heparin start nasal spray bid SCDs when in bed Code(s): R04.0 - EPISTAXIS (2) Chest pain Assessment/Plan: chest pain resolved negative troponins echo within normal limits no changes in ekg Code(s): R07.9 - CHEST PAIN, UNSPECIFIED (3) RLL pneumonia Assessment/Plan: acute pneumonia of RLL per chest ct on ceftriaxone and mepron multiple allergies to antibiotics monitor oxygen saturations, tolerating room air Code(s): J18.9 - PNEUMONIA, UNSPECIFIED ORGANISM Qualifiers: Pneumonia type: due to unspecified organism Qualified Code(s): J18.9 - Pneumonia, unspecified organism (4) Abdominal pain Assessment/Plan: ultrasound shows gallstone measuring 1.9 cm with questionable tiny stones seen by surgery and per surgery, patient does not appear to have cholecystitis currently. ordered on clears to be advanced to low fat as patient tolerates may need elective surgery if continues to have abd pain once acute pneumonia resolved Code(s): R10.9 - UNSPECIFIED ABDOMINAL PAIN (5) Immunosuppressed status Assessment/Plan: patient presents with weakness, wet cough (non productive). Concern for infectious pulmonary process in this immunocompromised patient, no evidence of asthma exacerbation currently. chest ct showed acute pneumonia. on ceftriaxone and mepron no airway compromise cd4 29 Code(s): D89.9 - DISORDER INVOLVING THE IMMUNE MECHANISM, UNSPECIFIED (6) Cough Assessment/Plan: patient with RLL acute pneumonia. pulmonary following Code(s): R05 - COUGH (7) SOB (shortness of breath) Assessment/Plan: on supplemental oxygen abg noted, no co2 retention tolerating room air, stable Code(s): R06.02 - SHORTNESS OF BREATH (8) Cannabis dependence Code(s): F12.20 - CANNABIS DEPENDENCE, UNCOMPLICATED (9) HIV (human immunodeficiency virus infection) Assessment/Plan: last cd4 count 104 01/2019 repeat immunology shows cd4 count 29 restarted on antivirals Code(s): B20 - HUMAN IMMUNODEFICIENCY VIRUS [HIV] DISEASE (10) AIDS (acquired immunodeficiency syndrome), CD4 <=200 Assessment/Plan: started on antivirals. for f/u at [facility] on discharge Code(s): B20 - HUMAN IMMUNODEFICIENCY VIRUS [HIV] DISEASE (11) Calculus of gallbladder w/o mention of cholecystitis or obstruction Code(s): K80.20 - CALCULUS OF GALLBLADDER W/O CHOLECYSTITIS W/O OBSTRUCTION Qualifiers: Cholecystitis presence: without cholecystitis Biliary obstruction: without biliary obstruction Qualified Code(s): K80.20 - Calculus of gallbladder without cholecystitis without obstruction (12) DVT prophylaxis Assessment/Plan: SCDs. heparin stopped for epistaxis Code(s): [id number] - (13) Hypertension Assessment/Plan: started on amlodopine 10mg daily monitor response Code(s): I10 - ESSENTIAL (PRIMARY) HYPERTENSION Visit type - Emergency Visit Emergency Visit: Yes ED Registration Date: 10/19/19 Care time: The patient presented to the Emergency Department on the above date and was hospitalized for further evaluation of their emergent condition. - New Patient This patient is new to me today: No - Critical Care Critical Care patient: No - Discharge Referral Referred to [facility] Med P.C.: No
[2019-10-22] MEDS ORDERED: SODIUM CHLORIDE NASAL SPRAY 44 ML BOTTLE NS PRN (09:46)
[2019-10-22] MEDS ORDERED: amLODIPine BESYLATE 5 MG TABLET (FP) PO ONE (09:50)
[2019-10-22] MEDS ORDERED: amLODIPine BESYLATE 5 MG TABLET (FP) PO SCH (10:00)
--- NOTE | 2019-10-22 11:57 | PN ---
Progress Note, Physician History of Present Illness: PULMONARY ALERT,FEELING BETTER,-RESP DISTRESS - Current Medication List Current Medications: Active Medications Acetaminophen (Ofirmev Injection -) 1,000 mg IVPB Q6H PRN PRN Reason: PAIN LEVEL 1 - 3 Albuterol/Ipratropium (Duoneb -) 1 amp NEB Q6H PRN PRN Reason: SHORTNESS OF BREATH Last Admin: 10/21/19 13:11 Dose: 1 amp Amlodipine Besylate (Norvasc -) 10 mg PO DAILY [facility] Atovaquone (Mepron -) 1,500 mg PO DAILY@0800 KIERAN Last Admin: 10/22/19 09:19 Dose: 1,500 mg Ceftriaxone Sodium 2 gm/ (Dextrose) 100 mls @ 200 mls/hr IVPB DAILY [facility]; Protocol Last Admin: 10/22/19 09:35 Dose: 200 mls/hr Morphine Sulfate (Morphine Sulfate) 1 mg IVPUSH Q4H PRN PRN Reason: PAIN LEVEL 7 - 10 Last Admin: 10/21/19 18:50 Dose: 1 mg Ondansetron HCl (Zofran Injection) 4 mg IVPUSH Q6H PRN PRN Reason: NAUSEA AND/OR VOMITING Pantoprazole Sodium (Protonix Iv) 40 mg IVPUSH DAILY [facility] Last Admin: 10/22/19 09:35 Dose: 40 mg Sodium Chloride ([place] Nasal [place] -) 2 spray NS BID PRN PRN Reason: NASAL CONGESTION - Objective Vital Signs: Vital Signs Temperature 98.8 F 10/22/19 07:57 Pulse Rate 87 10/22/19 07:57 Respiratory Rate 18 10/22/19 07:57 Blood Pressure 155/104 H 10/22/19 07:57 O2 Sat by Pulse Oximetry (%) 98 10/22/19 09:00 Constitutional: Yes: Well Nourished, Calm Eyes: Yes: WNL HENT: Yes: WNL Neck: Yes: WNL Cardiovascular: Yes: Regular Rate and Rhythm, S1, S2 Respiratory: Yes: Diminished Gastrointestinal: Yes: Normal Bowel Sounds, Soft Extremities: Yes: WNL Edema: No Labs: CBC, BMP 10/22/19 05:40 10/22/19 05:40 INR, PTT INR 1.03 (0.83-1.09) 10/20/19 11:08 Problem List - Problems (1) HIV (human immunodeficiency virus infection) Code(s): B20 - HUMAN IMMUNODEFICIENCY VIRUS [HIV] DISEASE (2) Immunosuppressed status Code(s): D89.9 - DISORDER INVOLVING THE IMMUNE MECHANISM, UNSPECIFIED (3) Abnormal chest CT Code(s): R93.89 - ABNORMAL FINDINGS ON DX IMAGING OF OTH BODY STRUCTURES (4) Cough Code(s): R05 - COUGH (5) SOB (shortness of breath) Code(s): R06.02 - SHORTNESS OF BREATH (6) Asthma Code(s): J45.909 - UNSPECIFIED ASTHMA, UNCOMPLICATED Qualifiers: Asthma severity: mild Asthma persistence: intermittent Asthma complication type: unspecified Qualified Code(s): J45.20 - Mild intermittent asthma, uncomplicated (7) Cannabis dependence Code(s): F12.20 - CANNABIS DEPENDENCE, UNCOMPLICATED (8) Hypertension Code(s): I10 - ESSENTIAL (PRIMARY) HYPERTENSION Qualifiers: Hypertension type: essential hypertension Qualified Code(s): I10 - Essential (primary) hypertension (9) Nicotine dependence Code(s): F17.200 - NICOTINE DEPENDENCE, UNSPECIFIED, UNCOMPLICATED Qualifiers: Nicotine product type: cigarettes (10) Pneumonia Code(s): J18.9 - PNEUMONIA, UNSPECIFIED ORGANISM Assessment/Plan IMP RLL PNEUMONIA HIV/AIDS ASTHMA SMOKER PLAN IV ABX PER ID INHALED BRONCHODILATORS O2 [address]ED [address] GARCIA Problem List - Problems (1) HIV (human immunodeficiency virus infection) Code(s): B20 - HUMAN IMMUNODEFICIENCY VIRUS [HIV] DISEASE (2) Immunosuppressed status Code(s): D89.9 - DISORDER INVOLVING THE IMMUNE MECHANISM, UNSPECIFIED (3) Abnormal chest CT Code(s): R93.89 - ABNORMAL FINDINGS ON DX IMAGING OF OTH BODY STRUCTURES (4) Cough Code(s): R05 - COUGH (5) SOB (shortness of breath) Code(s): R06.02 - SHORTNESS OF BREATH (6) Asthma Code(s): J45.909 - UNSPECIFIED ASTHMA, UNCOMPLICATED Qualifiers: Asthma severity: mild Asthma persistence: intermittent Asthma complication type: unspecified Qualified Code(s): J45.20 - Mild intermittent asthma, uncomplicated (7) Cannabis dependence Code(s): F12.20 - CANNABIS DEPENDENCE, UNCOMPLICATED (8) Hypertension Code(s): I10 - ESSENTIAL (PRIMARY) HYPERTENSION Qualifiers: Hypertension type: essential hypertension Qualified Code(s): I10 - Essential (primary) hypertension (9) Nicotine dependence Code(s): F17.200 - NICOTINE DEPENDENCE, UNSPECIFIED, UNCOMPLICATED Qualifiers: Nicotine product type: cigarettes (10) Pneumonia Code(s): J18.9 - PNEUMONIA, UNSPECIFIED ORGANISM
[2019-10-22] MEDS: MORPHINE SULFATE 2 MG/ML VIAL IVPUSH PRN (19:39)
[2019-10-23] MEDS ORDERED: PT OWN MED DRAWER 7, Y5N ONE ×3 (06:19→09:27)
[2019-10-23 07:25] LABS: BASO % 0.3 % (0-2.0); EOS % 1.9 % (0-4.5); HEMATOCRIT 33.1 % (32.4-45.2); HEMOGLOBIN 11.3 GM/dL (10.7-15.3); LYMPH % 15.8 % (8-40); MCH 33.3 pg (25.7-33.7); MCHC 34.3 g/dl (32.0-36.0); MEAN CELL VOLUME 97.2 fl (80-96); MEAN PLT VOLUME 9.4 fl (7.5-11.1); MONO % 11.8 % (3.8-10.2); NEUT % 70.2 % (42.8-82.8); PLATELET COUNT 209 K/MM3 (134-434); RDW 12.2 % (11.6-15.6); WHITE BLOOD COUNT 2.5 K/mm3 (4.0-10.0)
[2019-10-23 07:35] LABS: ALBUMIN 2.4 g/dl (3.4-5.0); BILIRUBIN,TOTAL 0.3 mg/dL (0.2-1); BLOOD UREA NITROGEN 10.9 mg/dL (7-18); CALCIUM 8.5 mg/dL (8.5-10.1); MAGNESIUM 2.1 mg/dL (1.8-2.4); POTASSIUM 3.9 mmol/L (3.5-5.1); TOT PROT 8.9 g/dl (6.4-8.2)
[2019-10-23] MEDS ORDERED: DEXTROSE 5%-WATER 100 ML IVPB ONE (09:27)
--- NOTE | 2019-10-23 09:30 | PN ---
Physical Exam: SUBJECTIVE: Patient seen and examined at the bedside. coughing up yellow phelgm. denies chest pain, denies shortness of breath. reports mild irritation of left inner arm s/p heparin injection yesterday. heparin d/c 2/2 to epistaxis, now resolved. OBJECTIVE: Patient is a 29 year old female with a significant past medical history of asthma and HIV was on HAART (non compliant). Patient reports to the ED with complaints of generalized weakness, wet cough, malaise, body aches, chills and fevers for the last 2 weeks. She admits to a productive cough for the past week with dark brown phlegm. She also reports abdominal pain and tenderness and had an episode of non bloody, non bili emesis in the ED. Found to have gall stones, but no surgical interventions recommended. She is being admitted for RLL pneumonia. Vital Signs Period Temp Pulse Resp BP Sys/Manriquez Pulse Ox Last 24 Hr 97.4 F-99.0 F 85-104 17-18 137-146/83-93 97 GENERAL: The patient is awake, alert, and fully oriented, in no acute distress. HEAD: Normal with no signs of trauma. EYES: PERRL, extraocular movements intact, sclera anicteric, conjunctiva clear. No ptosis. ENT: Ears normal, nares patent, oropharynx clear without exudates, moist mucous membranes. NECK: Trachea midline, full range of motion, supple. LUNGS: upper lobes clear, bilateral lobes diminished. tolerating room air. HEART: Regular rate and rhythm ABDOMEN: Soft, nontender, nondistended, normoactive bowel sounds EXTREMITIES: no edema. NEUROLOGICAL: Normal speech, gait not observed. PSYCH: Normal mood, normal affect. SKIN: Warm, dry, normal turgor, no rashes or lesions noted Laboratory Results - last 24 hr 10/23/19 10/23/19 05:55 05:55 WBC 2.5 L RBC 3.40 L Hgb 11.3 Hct 33.1 MCV 97.2 H MCH 33.3 MCHC 34.3 RDW 12.2 Plt Count 209 MPV 9.4 Absolute Neuts (auto) 1.7 Neutrophils % 70.2 Lymphocytes % 15.8 D Monocytes % 11.8 H Eosinophils % 1.9 D Basophils % 0.3 Nucleated RBC % 1 H Sodium 140 Potassium 3.9 Chloride 106 Carbon Dioxide 25 Anion Gap 9 BUN 10.9 Creatinine 1.0 Est GFR (CKD-EPI)AfAm 88.17 Est GFR (CKD-EPI)NonAf 76.07 Random Glucose 77 Calcium 8.5 Magnesium 2.1 Total Bilirubin 0.3 AST 16 ALT 11 L Alkaline Phosphatase 108 Total Protein 8.9 H Albumin 2.4 L Active Medications Generic Name Dose Route Start Last Admin Trade Name Freq PRN Reason Stop Dose Admin Acetaminophen 1,000 mg 10/19/19 16:28 Ofirmev Injection - IVPB Q6H PRN PAIN LEVEL 1 - 3 Albuterol/Ipratropium 1 amp 10/19/19 18:23 10/21/19 13:11 Duoneb - NEB 1 amp Q6H PRN Administration SHORTNESS OF BREATH Amlodipine Besylate 10 mg 10/23/19 10:00 Norvasc - PO DAILY KIERAN Atovaquone 1,500 mg 10/21/19 08:00 10/22/19 09:19 Mepron - PO 1,500 mg DAILY@0800 KIERAN Administration Ceftriaxone Sodium 2 gm/ 100 mls @ 200 mls/hr 10/20/19 10:00 10/22/19 09:35 Dextrose IVPB 200 mls/hr DAILY KIERAN Administration Protocol Morphine Sulfate 1 mg 10/21/19 16:52 10/22/19 19:39 Morphine Sulfate IVPUSH 1 mg Q4H PRN Administration PAIN LEVEL 7 - 10 Ondansetron HCl 4 mg 10/19/19 16:25 Zofran Injection IVPUSH Q6H PRN NAUSEA AND/OR VOMITING Pantoprazole Sodium 40 mg 10/19/19 16:30 10/22/19 09:35 Protonix Iv IVPUSH 40 mg DAILY KIERAN Administration Sodium Chloride 2 spray 10/22/19 09:46 10/23/19 06:45 [place] Nasal [place] - NS 2 spray BID PRN Administration NASAL CONGESTION ASSESSMENT/PLAN: Problem List - Problems (1) Leukopenia Assessment/Plan: wbc 2.5, continue to trend, no fevers leukopenia dropped on last admission seen by hand miter operator prior will consult if drops again with a.m. labs Code(s): D72.819 - DECREASED WHITE BLOOD CELL COUNT, UNSPECIFIED (2) RLL pneumonia Assessment/Plan: acute pneumonia of RLL per chest ct on ceftriaxone and mepron multiple allergies to antibiotics monitor oxygen saturations, tolerating room air, no airway compromise productive cough with yellow sputum Code(s): J18.9 - PNEUMONIA, UNSPECIFIED ORGANISM Qualifiers: Pneumonia type: due to unspecified organism Qualified Code(s): J18.9 - Pneumonia, unspecified organism (3) Mild epistaxis Assessment/Plan: resolved start nasal spray bid SCDs when in bed Code(s): R04.0 - EPISTAXIS (4) Chest pain Assessment/Plan: chest pain resolved negative troponins echo within normal limits no changes in ekg Code(s): R07.9 - CHEST PAIN, UNSPECIFIED (5) Abdominal pain Assessment/Plan: ultrasound shows gallstone measuring 1.9 cm with questionable tiny stones seen by surgery and per surgery, patient does not appear to have cholecystitis currently. diet advanced to low fat/cholesterol may need elective surgery if continues to have abd pain, however, no pain currently. Code(s): R10.9 - UNSPECIFIED ABDOMINAL PAIN (6) Immunosuppressed status Assessment/Plan: patient presents with weakness, wet cough (non productive). Concern for infectious pulmonary process in this immunocompromised patient, no evidence of asthma exacerbation currently. chest ct showed acute pneumonia. on ceftriaxone and mepron no airway compromise cd4 29 Code(s): D89.9 - DISORDER INVOLVING THE IMMUNE MECHANISM, UNSPECIFIED (7) Cough Assessment/Plan: patient with RLL acute pneumonia, now with productive cough with yellow sputum. Code(s): R05 - COUGH (8) SOB (shortness of breath) Assessment/Plan: abg noted, no co2 retention tolerating room air, stable Code(s): R06.02 - SHORTNESS OF BREATH (9) Cannabis dependence Code(s): F12.20 - CANNABIS DEPENDENCE, UNCOMPLICATED (10) HIV (human immunodeficiency virus infection) Assessment/Plan: last cd4 count 104 01/2019 repeat immunology shows cd4 count 29 restarted on antivirals by ID Code(s): B20 - HUMAN IMMUNODEFICIENCY VIRUS [HIV] DISEASE (11) AIDS (acquired immunodeficiency syndrome), CD4 <=200 Assessment/Plan: started on antivirals. for f/u at [facility] on discharge Code(s): B20 - HUMAN IMMUNODEFICIENCY VIRUS [HIV] DISEASE (12) Calculus of gallbladder w/o mention of cholecystitis or obstruction Code(s): K80.20 - CALCULUS OF GALLBLADDER W/O CHOLECYSTITIS W/O OBSTRUCTION Qualifiers: Cholecystitis presence: without cholecystitis Biliary obstruction: without biliary obstruction Qualified Code(s): K80.20 - Calculus of gallbladder without cholecystitis without obstruction (13) DVT prophylaxis Assessment/Plan: SCDs. heparin stopped for epistaxis Code(s): [id number] - (14) Hypertension Assessment/Plan: started on amlodopine 10mg daily monitor response, bp better controlled, but not yet at goal. add lisinopril low dose if systolic remains elevated Code(s): I10 - ESSENTIAL (PRIMARY) HYPERTENSION Visit type - Emergency Visit Emergency Visit: Yes ED Registration Date: 10/19/19 Care time: The patient presented to the Emergency Department on the above date and was hospitalized for further evaluation of their emergent condition. - New Patient This patient is new to me today: No - Critical Care Critical Care patient: No - Discharge Referral Referred to [facility] Med P.C.: No
[2019-10-23] MEDS: ATOVAQUONE 750 MG/5 ML (UNIT-DOSE PACKAGING) PO SCH (09:32)
[2019-10-23] MEDS: EMTRICITABINE/TENOFOV ALAFENAM (DESCOVY) TABLET PO SCH (09:33)
[2019-10-23] MEDS: DARUNAVIR 800 MG/COBICISTAT 150MG TABLET PO SCH (09:33)
[2019-10-23] MEDS: amLODIPine BESYLATE 5 MG TABLET (FP) PO SCH (09:33)
[2019-10-23] MEDS: PANTOPRAZOLE SODIUM 40 MG VIAL IVPUSH SCH (09:36)
[2019-10-23] MEDS: CEFTRIAXONE 2 GM in DEXTROSE 5%-WATER 100 ML IVPB SCH (09:38)
--- NOTE | 2019-10-23 11:46 | PN ---
Progress Note, Physician History of Present Illness: pulmonary alert,comfortable,-sob,-cough - Current Medication List Current Medications: Active Medications Acetaminophen (Ofirmev Injection -) 1,000 mg IVPB Q6H PRN PRN Reason: PAIN LEVEL 1 - 3 Albuterol/Ipratropium (Duoneb -) 1 amp NEB Q6H PRN PRN Reason: SHORTNESS OF BREATH Last Admin: 10/21/19 13:11 Dose: 1 amp Amlodipine Besylate (Norvasc -) 10 mg PO DAILY [facility] Last Admin: 10/23/19 09:33 Dose: 10 mg Atovaquone (Mepron -) 1,500 mg PO DAILY@0800 [facility] Last Admin: 10/23/19 09:32 Dose: 1,500 mg Ceftriaxone Sodium 2 gm/ (Dextrose) 100 mls @ 200 mls/hr IVPB DAILY [facility]; Protocol Last Admin: 10/23/19 09:38 Dose: 200 mls/hr Morphine Sulfate (Morphine Sulfate) 1 mg IVPUSH Q4H PRN PRN Reason: PAIN LEVEL 7 - 10 Last Admin: 10/22/19 19:39 Dose: 1 mg Ondansetron HCl (Zofran Injection) 4 mg IVPUSH Q6H PRN PRN Reason: NAUSEA AND/OR VOMITING Pantoprazole Sodium (Protonix Iv) 40 mg IVPUSH DAILY [facility] Last Admin: 10/23/19 09:36 Dose: 40 mg Sodium Chloride ([place] Nasal [place] -) 2 spray NS BID PRN PRN Reason: NASAL CONGESTION Last Admin: 10/23/19 06:45 Dose: 2 spray - Objective Vital Signs: Vital Signs Temperature 97.5 F L 10/23/19 09:58 Pulse Rate 87 10/23/19 09:58 Respiratory Rate 18 10/23/19 09:58 Blood Pressure 139/92 10/23/19 09:58 O2 Sat by Pulse Oximetry (%) 100 10/23/19 09:00 Constitutional: Yes: Well Nourished, Calm Eyes: Yes: WNL HENT: Yes: WNL Neck: Yes: WNL Cardiovascular: Yes: Regular Rate and Rhythm, S1, S2 Respiratory: Yes: Diminished Gastrointestinal: Yes: Normal Bowel Sounds, Soft Extremities: Yes: WNL Edema: No Labs: CBC, BMP 10/23/19 05:55 10/23/19 05:55 INR, PTT INR 1.03 (0.83-1.09) 10/20/19 11:08 Problem List - Problems (1) HIV (human immunodeficiency virus infection) Code(s): B20 - HUMAN IMMUNODEFICIENCY VIRUS [HIV] DISEASE (2) Immunosuppressed status Code(s): D89.9 - DISORDER INVOLVING THE IMMUNE MECHANISM, UNSPECIFIED (3) Abnormal chest CT Code(s): R93.89 - ABNORMAL FINDINGS ON DX IMAGING OF OTH BODY STRUCTURES (4) Cough Code(s): R05 - COUGH (5) SOB (shortness of breath) Code(s): R06.02 - SHORTNESS OF BREATH (6) Asthma Code(s): J45.909 - UNSPECIFIED ASTHMA, UNCOMPLICATED Qualifiers: Asthma severity: mild Asthma persistence: intermittent Asthma complication type: unspecified Qualified Code(s): J45.20 - Mild intermittent asthma, uncomplicated (7) Cannabis dependence Code(s): F12.20 - CANNABIS DEPENDENCE, UNCOMPLICATED (8) Hypertension Code(s): I10 - ESSENTIAL (PRIMARY) HYPERTENSION Qualifiers: Hypertension type: essential hypertension Qualified Code(s): I10 - Essential (primary) hypertension (9) Nicotine dependence Code(s): F17.200 - NICOTINE DEPENDENCE, UNSPECIFIED, UNCOMPLICATED Qualifiers: Nicotine product type: cigarettes (10) Pneumonia Code(s): J18.9 - PNEUMONIA, UNSPECIFIED ORGANISM Assessment/Plan IMP RLL PNEUMONIA CLINICLLY IMPROVING HIV/AIDS ASTHMA SMOKER PLAN IV ABX PER ID INHALED BRONCHODILATORS O2 NEEDED DR GARCIA Problem List - Problems (1) HIV (human immunodeficiency virus infection) Code(s): B20 - HUMAN IMMUNODEFICIENCY VIRUS [HIV] DISEASE (2) Immunosuppressed status Code(s): D89.9 - DISORDER INVOLVING THE IMMUNE MECHANISM, UNSPECIFIED (3) Abnormal chest CT Code(s): R93.89 - ABNORMAL FINDINGS ON DX IMAGING OF OTH BODY STRUCTURES (4) Cough Code(s): R05 - COUGH (5) SOB (shortness of breath) Code(s): R06.02 - SHORTNESS OF BREATH (6) Asthma Code(s): J45.909 - UNSPECIFIED ASTHMA, UNCOMPLICATED Qualifiers: Asthma severity: mild Asthma persistence: intermittent Asthma complication type: unspecified Qualified Code(s): J45.20 - Mild intermittent asthma, uncomplicated (7) Cannabis dependence Code(s): F12.20 - CANNABIS DEPENDENCE, UNCOMPLICATED (8) Hypertension Code(s): I10 - ESSENTIAL (PRIMARY) HYPERTENSION Qualifiers: Hypertension type: essential hypertension Qualified Code(s): I10 - Essential (primary) hypertension (9) Nicotine dependence Code(s): F17.200 - NICOTINE DEPENDENCE, UNSPECIFIED, UNCOMPLICATED Qualifiers: Nicotine product type: cigarettes (10) Pneumonia Code(s): J18.9 - PNEUMONIA, UNSPECIFIED ORGANISM
--- NOTE | 2019-10-23 12:48 | PN ---
Progress Note (short form) - Note Progress Note: improved still some cough eating regular food ct scan with RLL pneumonia Vital Signs Period Temp Pulse Resp BP Sys/Manriquez Pulse Ox Last 24 Hr 97.4 F-99.0 F 85-104 17-18 137-146/83-93 97-100 cor-rrr lungs decreased bs at base abd soft, mild midepigastric discomfrt to palpation ext no edema CBC, BMP 10/23/19 05:55 10/23/19 05:55 Microbiology 10/19/19 07:00 Blood - Peripheral Venous Blood Culture - Preliminary NO GROWTH OBTAINED AFTER 96 HOURS, INCUBATION TO CONTINUE FOR 1 DAYS. 10/19/19 07:30 Blood - Peripheral Venous Blood Culture - Preliminary NO GROWTH OBTAINED AFTER 96 HOURS, INCUBATION TO CONTINUE FOR 1 DAYS. 10/19/19 13:26 Urine - Urine Clean Catch Urine Culture - Final Normal Urogenital Lyla 10/20/19 03:10 Urine - Urine Clean Catch Legionella Antigen - Final 10/20/19 03:10 Urine - Urine Clean Catch Streptococcus pneumoniae Antigen ( M - Preliminary cd4 29 Current Medications Acetaminophen (Ofirmev Injection -) 1,000 mg IVPB Q6H PRN PRN Reason: PAIN LEVEL 1 - 3 Albuterol/Ipratropium (Duoneb -) 1 amp NEB Q6H PRN PRN Reason: SHORTNESS OF BREATH Last Admin: 10/21/19 13:11 Dose: 1 amp Amlodipine Besylate (Norvasc -) 10 mg PO DAILY [facility] Last Admin: 10/23/19 09:33 Dose: 10 mg Atovaquone (Mepron -) 1,500 mg PO DAILY@0800 [facility] Last Admin: 10/23/19 09:32 Dose: 1,500 mg Ceftriaxone Sodium 2 gm/ (Dextrose) 100 mls @ 200 mls/hr IVPB DAILY [facility]; Protocol Last Admin: 10/23/19 09:38 Dose: 200 mls/hr Morphine Sulfate (Morphine Sulfate) 1 mg IVPUSH Q4H PRN PRN Reason: PAIN LEVEL 7 - 10 Last Admin: 10/22/19 19:39 Dose: 1 mg Ondansetron HCl (Zofran Injection) 4 mg IVPUSH Q6H PRN PRN Reason: NAUSEA AND/OR VOMITING Pantoprazole Sodium (Protonix Iv) 40 mg IVPUSH DAILY [facility] Last Admin: 10/23/19 09:36 Dose: 40 mg Sodium Chloride ([place] Nasal [place] -) 2 spray NS BID PRN PRN Reason: NASAL CONGESTION Last Admin: 10/23/19 06:45 Dose: 2 spray a/p aids by tcells-on mepron for pcp prophylaxis, prexcobis and descovy resumed- pneumonia-RLL day #5 rocephin consider switch to po ceftin for another 5 days 500 bid patient is willing to f/u at the [facility] multiple antibiotic allergies
[2019-10-24 06:53] VITALS: PULSE 78
[2019-10-24] MEDS ORDERED: PT OWN MED DRAWER 7, Y5N ONE ×4 (07:44→10:55)
[2019-10-24 08:01] LABS: BASO % 0.6 % (0-2.0); EOS % 2.7 % (0-4.5); HEMATOCRIT 36.5 % (32.4-45.2); HEMOGLOBIN 12.3 GM/dL (10.7-15.3); LYMPH % 13.4 % (8-40); MCH 33.5 pg (25.7-33.7); MCHC 33.6 g/dl (32.0-36.0); MEAN CELL VOLUME 99.6 fl (80-96); MEAN PLT VOLUME 9.5 fl (7.5-11.1); MONO % 13.4 % (3.8-10.2); NEUT % 69.9 % (42.8-82.8); PLATELET COUNT 233 K/MM3 (134-434); RBC 3.67 M/mm3 (3.60-5.2); RDW 12.7 % (11.6-15.6); WHITE BLOOD COUNT 3.9 K/mm3 (4.0-10.0)
[2019-10-24 08:33] LABS: ALBUMIN 2.6 g/dl (3.4-5.0); BILIRUBIN,TOTAL 0.2 mg/dL (0.2-1); BLOOD UREA NITROGEN 12.5 mg/dL (7-18); CALCIUM 8.7 mg/dL (8.5-10.1); CREATININE 0.9 mg/dL (0.55-1.3); MAGNESIUM 2.1 mg/dL (1.8-2.4); TOT PROT 9.2 g/dl (6.4-8.2)
[2019-10-24] MEDS ORDERED: DEXTROSE 5%-WATER 100 ML IVPB ONE (09:02)
[2019-10-24] MEDS: ATOVAQUONE 750 MG/5 ML (UNIT-DOSE PACKAGING) PO SCH (09:09)
[2019-10-24] MEDS: EMTRICITABINE/TENOFOV ALAFENAM (DESCOVY) TABLET PO SCH (09:15)
[2019-10-24] MEDS: DARUNAVIR 800 MG/COBICISTAT 150MG TABLET PO SCH (09:16)
[2019-10-24] MEDS: amLODIPine BESYLATE 5 MG TABLET (FP) PO SCH (09:16)
[2019-10-24] MEDS: CEFTRIAXONE 2 GM in DEXTROSE 5%-WATER 100 ML IVPB SCH (09:17)
[2019-10-24] MEDS: PANTOPRAZOLE SODIUM 40 MG VIAL IVPUSH SCH (09:20)
[2019-10-24 10:25] VITALS: BP 138/93; TEMP 97.8
[2019-10-24] MEDS ORDERED: CEFUROXIME AXETIL 500 MG TABLET PO SCH (11:00)
--- NOTE | 2019-10-24 11:06 | DS ---
Physical Exam: SUBJECTIVE: Patient seen and examined. denies any further pain, discomfort or nausea. She agrees to outpatient follow up at the [facility]. Importance of medication compliance discussed with her. discharge home OBJECTIVE: awake, alert in no acute distress Patient is a 29 year old female with a significant past medical history of asthma and HIV was on HAART (but was non compliant). Patient reports to the ED with complaints of generalized weakness, wet cough, malaise, body aches, chills and fevers for the last 2 weeks. She admits to a productive cough for the past week with dark brown phlegm. She also reports abdominal pain and tenderness and had an episode of non bloody, non bili emesis in the ED. Found to have gall stones, but no surgical interventions recommended. Her diet was advanced to low cholesterol/low fat and she has been tolerating diet without any nausea/ vomiting. Recommended to follow up with Dr. Ferguson on discharge. Per ID, continue Ceftin 500mg BID x 5 more days continue meprol 1500mg ONCE per day for 1 month Continue HIV medications and follow up at [facility], patient agrees to follow up. SEE PROBLEM LIST BELOW. Vital Signs Period Temp Pulse Resp BP Sys/Manriquez Pulse Ox Last 24 Hr 97.2 F-98.8 F 78-93 18-20 119-140/71-98 96-100 PHYSICAL EXAM GENERAL: The patient is awake, alert, and fully oriented, in no acute distress. HEAD: Normal with no signs of trauma. EYES: PERRL, extraocular movements intact, sclera anicteric, conjunctiva clear. ENT: Ears normal, nares patent, oropharynx clear without exudates, moist mucous membranes. NECK: Trachea midline, full range of motion, supple. LUNGS: Breath sounds equal, clear to auscultation bilaterally,diminished at the bases. no airway compromise. HEART: Regular rate and rhythm, S1, S2 without murmur, rub or gallop. ABDOMEN: Soft, nontender, nondistended EXTREMITIES: 2+ pulses, warm, well-perfused, no edema. NEUROLOGICAL: normal speech, gait steady PSYCH: Normal mood, normal affect. SKIN: Warm, dry, normal turgor, no rashes or lesions noted. LABS Laboratory Results - last 24 hr 10/24/19 10/24/19 06:20 06:20 WBC 3.9 L RBC 3.67 Hgb 12.3 Hct 36.5 MCV 99.6 H MCH 33.5 MCHC 33.6 RDW 12.7 Plt Count 233 MPV 9.5 Absolute Neuts (auto) 2.7 Neutrophils % 69.9 Lymphocytes % 13.4 Monocytes % 13.4 H Eosinophils % 2.7 Basophils % 0.6 Nucleated RBC % 0 Sodium 139 Potassium 4.0 Chloride 106 Carbon Dioxide 25 Anion Gap 9 BUN 12.5 Creatinine 0.9 Est GFR (CKD-EPI)AfAm 100.14 Est GFR (CKD-EPI)NonAf 86.41 Random Glucose 72 L Calcium 8.7 Magnesium 2.1 Total Bilirubin 0.2 AST 21 ALT 14 Alkaline Phosphatase 112 Total Protein 9.2 H Albumin 2.6 L HOSPITAL COURSE: Date of Admission:10/19/19 Date of Discharge: 10/24/19 Minutes to complete discharge: 45 Discharge Summary Problems reviewed: Yes Reason For Visit: IMMUNOSUPRESSION,SOB,COUGH,AIDS,HIV,WEAKNESS Current Active Problems AIDS (acquired immunodeficiency syndrome), CD4 <=200 (Acute) Calculus of gallbladder w/o mention of cholecystitis or obstruction (Acute) Chest pain (Acute) HIV (human immunodeficiency virus infection) (Acute) Hypertension (Acute) Immunosuppressed status (Acute) Leukopenia (Acute) Mild epistaxis (Acute) Pneumonia (Acute) RLL pneumonia (Acute) Condition: Stable - Instructions Diet, Activity, Other Instructions: Ms Davalos: You were admitted for right lower lobe pneumonia: Here are your discharge instructions: -Continue Ceftin 500mg TWICE per day (AT 8AM AND 8PM) FOR 5 MORE DAYS - this is the antibiotic for your right lower lobe pneumonia. -Continue Mepron 1500mg ONCE per day for a total of 1 month (until November 24 2019), take with food. Continue all the other medications listed on your discharge instructions. Your blood pressure was elevated during your stay, and we have called in a new blood pressure medication called Norvasc 10mg. This medication is to be taken once per day. Follow ups Please follow up at the [facility] on discharge. Please corn picker your medications at [facility], there is no co-pay for you. Diet: Continue a low fat/low cholesterol diet. Please follow up with Dr. Ferguson for possible interventions for your gallbladder. If you have any questions, concerns, please call me. Thank you for allowing us to care for you. Loraine Pierre NP [facility] @ [facility] [phone] Referrals: Kayli Alexander NP [Primary Care Provider] - Gavino Ferguson MD [Staff Physician] - Mulugeta Garcia MD [Staff Physician] - Disposition: HOME - Home Medications Comprehensive Discharge Medication List: Ambulatory Orders Amlodipine Besylate [Norvasc -] 10 mg PO DAILY #60 tablet 10/24/19 Atovaquone [Mepron Oral Solution -] 1,500 mg PO DAILY@0800 #4 bottle 10/24/19 Cefuroxime Axetil [Ceftin -] 500 mg PO BID #10 tablet 10/24/19 Darunavir/Cobicistat [Prezcobix 800 mg-150 mg Tablet] 1 each PO DAILY #90 tablet 10/24/19 Emtricitabine/Tenofov Alafenam [Descovy 200-25 mg Tablet (Nf)] 1 each PO DAILY # 30 tablet 10/24/19 Problem List - Problems (1) Leukopenia Assessment/Plan: resolved with today's labs no fevers patient to follow up with her PCP Code(s): D72.819 - DECREASED WHITE BLOOD CELL COUNT, UNSPECIFIED (2) RLL pneumonia Assessment/Plan: acute pneumonia of RLL per chest CT discharge on Ceftin 500mg x 5 more days - twice per day Mepron 1500mg ONCE per day for 1 month Code(s): J18.9 - PNEUMONIA, UNSPECIFIED ORGANISM Qualifiers: Pneumonia type: due to unspecified organism Qualified Code(s): J18.9 - Pneumonia, unspecified organism (3) Mild epistaxis Assessment/Plan: resolved Code(s): R04.0 - EPISTAXIS (4) Chest pain Assessment/Plan: chest pain resolved negative troponins echo within normal limits no changes in ekg Code(s): R07.9 - CHEST PAIN, UNSPECIFIED (5) Abdominal pain Assessment/Plan: ultrasound shows gallstone measuring 1.9 cm with questionable tiny stones seen by surgery and per surgery, patient does not appear to have cholecystitis currently. diet advanced to low fat/cholesterol may need elective surgery if continues to have abd pain, however, no pain currently. outpatient referral given Code(s): R10.9 - UNSPECIFIED ABDOMINAL PAIN (6) Immunosuppressed status Assessment/Plan: cd4 29 continue antibiotics and she is encouraged to follow up at [facility] Antivirals called into her pharmacy Code(s): D89.9 - DISORDER INVOLVING THE IMMUNE MECHANISM, UNSPECIFIED (7) Cough Code(s): R05 - COUGH (8) SOB (shortness of breath) Assessment/Plan: abg noted, no co2 retention tolerating room air, stable Code(s): R06.02 - SHORTNESS OF BREATH (9) Cannabis dependence Code(s): F12.20 - CANNABIS DEPENDENCE, UNCOMPLICATED (10) HIV (human immunodeficiency virus infection) Assessment/Plan: last cd4 count 104 01/2019 repeat immunology shows cd4 count 29 restarted on antivirals by ID Code(s): B20 - HUMAN IMMUNODEFICIENCY VIRUS [HIV] DISEASE (11) AIDS (acquired immunodeficiency syndrome), CD4 <=200 Assessment/Plan: started on antivirals. for f[facility]u [facility] on discharge Code(s): B20 - HUMAN IMMUNODEFICIENCY VIRUS [HIV] DISEASE (12) Calculus of gallbladder w/o mention of cholecystitis or obstruction Code(s): K80.20 - CALCULUS OF GALLBLADDER W/O CHOLECYSTITIS W/O OBSTRUCTION Qualifiers: Cholecystitis presence: without cholecystitis Biliary obstruction: without biliary obstruction Qualified Code(s): K80.20 - Calculus of gallbladder without cholecystitis without obstruction (13) DVT prophylaxis Assessment/Plan: SCDs. heparin stopped for epistaxis Code(s): [id number] - (14) Hypertension Assessment/Plan: started on amlodopine 10mg daily bp stable Code(s): I10 - ESSENTIAL (PRIMARY) HYPERTENSION This patient is new to me today: No Emergency Visit: Yes ED Registration Date: 10/19/19 Care time: The patient presented to the Emergency Department on the above date and was hospitalized for further evaluation of their emergent condition. Critical Care patient: No - Discharge Referral Referred to [facility] No
== END 2019-10-24 14:05 | disposition home or self-care (01) | DRG 894 ==
LOC: JER 06:29 → SUPCPDRO 06:29 → JERBED 09:10 → J4S 20:18 → J8W 10-23 23:25
PROVIDERS: ADMIT Internal Medicine; ATTEND Nurse Practitioner Family
DX: B20 Human immunodeficiency virus [HIV] disease (principal); J18.9 Pneumonia, unspecified organism; J45.20 Mild intermittent asthma, uncomplicated; F12.20 Cannabis dependence, uncomplicated; I10 Essential (primary) hypertension; F17.210 Nicotine dependence, cigarettes, uncomplicated; K80.20 Calculus of gallbladder without cholecystitis without obstruction; R07.9 Chest pain, unspecified; D72.819 Decreased white blood cell count, unspecified; R04.0 Epistaxis; R10.9 Unspecified abdominal pain; R05 Cough; R06.02 Shortness of breath; E66.9 Obesity, unspecified; Z68.33 Body mass index [BMI] 33.0-33.9, adult; R00.0 Tachycardia, unspecified
CPT/HCPCS: 36415; 36600; 71045-TC-FY; 71046-TC-FY; 71260-TC; 74177-TC; 76705-TC; 80053; 80307; 81003; 82803; 82962; 83605; 83615; 83690; 83735; 84100; 84484; 84703; 85025; 85027; 85610; 85730; 86359; 86360; 86850; 86900; 86901; 87040; 87086; 87804; 87899; 93005; 93010; 93306-TC; 94640; 99283-25; J1644; J7030; Q9967

== ENCOUNTER 2020-01-06 13:16 | Inpatient (IN) | payer OTHER ==
--- NOTE | 2020-01-06 13:41 | PDOC ---
History of Present Illness - General Chief Complaint: SIRS, Suspected/Possible Stated Complaint: BACK PAIN/COUGH Time Seen by Provider: 01/06/20 13:40 History Source: Patient Exam Limitations: No Limitations - History of Present Illness Initial Comments: Gloria Davalos is a 29 yo F w a pmh of HIV - requests that none of her friends find out! recently started on HAART, recent CD4 of 29 in October, asthma (no hospitalizations since childhood, no intubations no ICU admissions), chronic varicella when CD4 count drops who presents to the [facility] er sent in by Kayli Alexnader because she does not look well and has extreme body pains. She has been having extreme chills without fevers. She has also been experiencing a dry cough and right sided chest discomfort. She endorses a history of PCP pneumonia in the past but is allergic to Bactrim. She denies any dysuria, frequency, urgency, numbness, tingling, chills, blurry vision, nausea, or vomiting. PCP: Kayli Alexander ID: Dr. Mccarty PSH: None reported Social Hx: Lives in [facility], Every day smoker , smokes K2, marijuana, denies IVDU or other substances including alcohol. Allergies: Fish containing products, vancomycin, Sulfamethoxazole, trimethoprim , clindamycin Past History - Past Medical History Allergies/Adverse Reactions: Allergies Allergy/AdvReac Type Severity Reaction Status Date / Time Fish Containing Products Allergy Severe Swelling Verified 01/06/20 16:30 vancomycin Allergy Severe Swelling Verified 01/06/20 16:30 sulfamethoxazole Allergy Intermediate fever, Verified 01/06/20 16:30 [From Bactrim] abnl lfts trimethoprim [From Bactrim] Allergy Intermediate fever, Verified 01/06/20 16:30 abnl lfts clindamycin Allergy Itching Verified 01/06/20 16:30 Home Medications: Ambulatory Orders Albuterol Sulfate Inhaler - [Ventolin HFA Inhaler -] 1 - 2 inh PO QID PRN #1 inhaler 12/30/19 Amlodipine Besylate [Norvasc -] 5 mg PO DAILY #30 tablet 12/30/19 Atovaquone [Mepron Oral Solution -] 10 ml PO DAILY #300 ml 12/30/19 Beclomethasone Dipropionate [Qvar Redihaler] 2 puff IH BID #1 hfa.aeroba Darunavir/Cob/Emtri/Tenof Alaf [Symtuza 700-738-650-10 mg Tab] 1 each PO DAILY # 30 tablet 12/30/19 Anemia: No Asthma: Yes Cancer: No Cardiac Disorders: No CVA: No COPD: No CHF: No Dementia: No Diabetes: No GI Disorders: No Disorders: No HTN: Yes Hypercholesterolemia: No Kidney Stones: No Liver Disease: No Seizures: No Thyroid Disease: No - Surgical History Abdominal Surgery: No Appendectomy: No Cardiac Surgery: No Cholecystectomy: No Lung Surgery: No Neurologic Surgery: No Orthopedic Surgery: No - Reproductive History PID: No - Immunization History Immunization Up to Date: No - Psycho Social/Smoking Cessation Hx Smoking History: Current every day smoker Have you smoked in the past 12 months: Yes Number of Cigarettes Smoked Daily: 3 (pt denies using more) Information on smoking cessation initiated: Yes 'Breaking Loose' booklet given: 05/21/18 Hx Alcohol Use: No Drug/Substance Use Hx: No Substance Use Type: Marijuana Hx Substance Use Treatment: Yes (One previous inpt rehab @ [facility] in 2014) Review of Systems - Review of Systems Able to Perform ROS?: Yes Comments:: CONSTITUTIONAL: Present: Chills Absent: fever, no fatigue EYES: Absent: visual changes ENT: Absent: ear pain, no sore throat CARDIOVASCULAR: Absent: chest pain, no palpitations RESPIRATORY: Present: Cough, SOB GI: Absent: abdominal pain, no nausea, no vomiting, no constipation, no diarrhea GENITOURINARY: Absent: dysuria, no frequency, no hematuria MUSKULOSKELETAL: Present: back pain Absent: no arthralgia, no myalgia SKIN: Present: rash NEURO: Absent: headache *Physical Exam - Vital Signs Last Vital Signs Temp Pulse Resp BP Pulse Ox 73 18 140/110 H 97 01/06/20 13:36 01/06/20 13:36 01/06/20 13:36 01/06/20 13:36 - Physical Exam GENERAL: Appears lethargic and tired. Mild distress. HEENT: There is no thrush or pharyngeal erythema. Normocephalic, atraumatic. PERRL, EOM intact. CARDIOVASCULAR: Normal S1, S2. Regular rate and rhythm. PULMONARY: Right sided rhonchi. No wheezing or rales. THORAX: There are diffuse disseminated Zoster lesions on the patient's left neck shoulder and down her arm. There is also a lower dermatomal zoster lesion on the patient's right which starts in the mid back, wraps around to the front and crosses midline. These lesions are excruciatingly painful to the patient. ABDOMEN: Soft, non-distended, non-tender. EXTREMITIES: Normal ROM in all four extremities. No gross deformities. SKIN: Warm, dry. Zoster lesion as above NEUROLOGICAL: No focal neurological deficits. ED Treatment Course - LABORATORY CBC & Chemistry Diagram: 01/06/20 14:09 01/06/20 14:09 Medical Decision Making - Medical Decision Making Gloria Davalos is a 29 yo F w a pmh of HIV - requests that none of her friends find out! recently started on HAART, recent CD4 of 29 in October, asthma (no hospitalizations since childhood, no intubations no ICU admissions), chronic varicella when CD4 count drops who presents to the [facility] er sent in by Kayli Alexander because she does not look well and has extreme body pains. She has been having extreme chills without fevers. She has also been experiencing a dry cough and right sided chest discomfort. She endorses a history of PCP pneumonia in the past but is allergic to Bactrim. Vital Signs Temp Pulse Resp BP Pulse Ox 73 18 140/110 H 97 01/06/20 13:36 01/06/20 13:36 01/06/20 13:36 01/06/20 13:36 DDx IBNLT: Immunosuppression, disseminated zoster, PCP PNA, other opportunistic infection, electrolyte/metabolic disturbance Plan: Contact and airborne isolation, EKG, CXR, Sepsis workup, empiric IV acyclovir, ID consult - Dr. Mccarty, Admission to med/surg EKG: NS w/ 1st degree AVB rate of 69, narrow complexes, normal axis, no hypertrophy, no ST elevations or depressions, no Q waves, QTc 447, IL 238. CXR: Unremarkable Labs:Decreased WBC count, mildly elevated LDH ID Consult: I spoke with Dr. Mccarty - Given the body aches, chills, hypothermia on arrival, low WBC count, and overall immunosuppressed state we will cover the patient empirically with Cefepime as she is allergic to vanc/tmp- smx/clinda Disposition: Med/sure - Airborne isolation with negative pressure - Contact isolation Discharge - Discharge Information Problems reviewed: Yes Clinical Impression/Diagnosis: Disseminated herpes zoster Sepsis Qualifiers: Sepsis type: sepsis due to unspecified organism Sepsis acute organ dysfunction status: unspecified Qualified Code(s): A41.9 - Sepsis, unspecified organism Condition: Stable - Admission Yes - Follow up/Referral - Patient Discharge Instructions - Post Discharge Activity
[2020-01-06] MEDS ORDERED: SODIUM CHLORIDE 3,130 ML IV ONE (13:53)
[2020-01-06] MEDS ORDERED: ACYCLOVIR 1000 MG (50MG/ML) VIAL IVPB ONE (13:56)
[2020-01-06] MEDS ORDERED: GABAPENTIN 100 MG CAPSULE PO ONE (14:22)
--- NOTE | 2020-01-06 14:24 | PDOC ---
Documentation entered by Rocio Menendez SCRIBE, acting as scribe for Shelby Kothari DO. Shelby Kothari DO: This documentation has been prepared by the Gemma kulkarni Xhesika, SCRIBE, under my direction and personally reviewed by me in its entirety. I confirm that the documentation accurately reflects all work, treatment, procedures, and medical decision making performed by me. Attending Attestation - Resident Resident Name: Eduar Celestin - ED Attending Attestation I have performed the following: I have examined & evaluated the patient, The case was reviewed & discussed with the resident, I agree w/resident's findings & plan, Exceptions are as noted - HPI HPI: 01/06/20 14:11 The patient is a 29 year old female with a significant PMH of HIV+ ( noncompliant with her medications) who presents to the emergency department for diffuse, painful, itchy rash on her abdomen, chest and back. Pt states she was seen at the [facility] this morning and was advised to come to the ER for further evaluations. The patient denies chest pain, shortness of breath, headache and dizziness. Denies fever, chills, cough, nausea, vomiting, diarrhea and constipation. Denies dysuria, frequency, urgency and hematuria. Allergies: NKDA - Physicial Exam PE: 01/06/20 14:13 GENERAL: Awake, alert, and fully oriented, in no acute distress HEAD: No signs of trauma EYES: PERRLA, EOMI, sclera anicteric, conjunctiva clear ENT: Auricles normal inspection, hearing grossly normal, nares patent, oropharynx clear without exudates. Moist mucosa NECK: Normal ROM, supple, no lymphadenopathy, JVD, or masses LUNGS: crackles R base HEART: Regular rate and rhythm, normal S1 and S2, no murmurs, rubs or gallops ABDOMEN: Soft, nontender, normoactive bowel sounds. No guarding, no rebound. No masses EXTREMITIES: Normal range of motion, no edema. No clubbing or cyanosis. No cords, erythema, or tenderness SKIN: +vesicular rash at different stages of healing on her abdomen, upper chest and back, consistent with varicella zoster 01/06/20 14:20 - Medical Decision Making 01/06/20 14:21 I, Dr. Shelby Kurkowski, DO, attest that this document has been prepared under my direction and personally reviewed by me in its entirety. I further attest, that it accurately reflects all work, treatment, procedures and medical decision -making performed by me. a/p: 29yo female with hx of hiv sent for eval of a rash across her abd and her chest/back -vesicular rash consistent with zoster -given low cd4 count in october will start iv acyclovir -will send labs, cultures -will need admission for iv acyclovir -will give pain control -will monitor and reassess 01/06/20 17:16 pt with low plt and with low wbc pt with zoster labs reviewed iv acyclovir resident discussed the case with leonardo who accepts pt to service Heart Score/ECG Review - ECG Intrepretation Comment:: 01/06/20 14:23 sinus at 69 with 1st degree av block, nl axis, nl interval, q waves septally which are age indeterminate
[2020-01-06] MEDS ORDERED: GABAPENTIN 100 MG CAPSULE ONE (14:36)
[2020-01-06] MEDS ORDERED: SODIUM CHLORIDE 1,000 ML IV SCH ×2 (14:45→19:15)
[2020-01-06] MEDS ORDERED: Acyclovir Sodium 1,000 MG in DEXTROSE 5%-WATER - 250 ML IVPB ONE (15:30)
[2020-01-06 16:03] LABS: BASO % 0.5 % (0-2.0); HEMATOCRIT 35.8 % (32.4-45.2); HEMOGLOBIN 11.9 GM/dL (10.7-15.3); LYMPH % 18.1 % (8-40); MCHC 33.3 g/dl (32.0-36.0); MEAN CELL VOLUME 99.1 fl (80-96); MONO % 8.7 % (3.8-10.2); NEUT % 69.7 % (42.8-82.8); PLATELET COUNT 129 K/MM3 (134-434); RBC 3.61 M/mm3 (3.60-5.2); VENOUS PC02 52.5 mmHg (38-52); VENOUS PH 7.33 (7.31-7.41); VENOUS PO2 < 49 mmHg (28-48); WHITE BLOOD COUNT 2.4 K/mm3 (4.0-10.0)
[2020-01-06 16:17] LABS: INR 0.9 (0.83-1.09); PROTHROMBIN TIME (PATIENT) 10.6 SEC (9.7-13.0)
[2020-01-06 16:20] LABS: ACTIVATED PTT 33.8 SECONDS (25.2-36.5)
[2020-01-06 16:31] LABS: ALBUMIN 3.1 g/dl (3.4-5.0); BILIRUBIN,TOTAL 0.5 mg/dL (0.2-1); BLOOD UREA NITROGEN 15.2 mg/dL (7-18); CALCIUM 8.8 mg/dL (8.5-10.1); CREATININE 0.9 mg/dL (0.55-1.3); POTASSIUM 3.7 mmol/L (3.5-5.1); TOT PROT 8.7 g/dl (6.4-8.2)
[2020-01-06] MEDS ORDERED: CEFEPIME HCL/D5W 2 GM/50 ML BAG IVPB ONE (17:52)
--- NOTE | 2020-01-06 18:00 | HP ---
CHIEF COMPLAINT: generalizes body aches and chills; sent to [facility] ED by PCP PCP: Kayli Alexander HISTORY OF PRESENT ILLNESS: History taken by ED team as patient was non-compliant with exam. 26F w/ pmhx of HIV (recently started on HAART) and asthma presented to the ED after being sent by her primary care physician. Per ED, pt presented with extreme body pains and chills. Pt endorsed chills, but no fever, chest pain, shortness of breath, abdominal pain, urinary/bowel symptoms. She was seen somnolent, but easily arousable to verbal stimuli, however, refused to answer questions during interview as she was "tired". Admits to taking her HIV medication, but could not confirm if she takes it regularly. Last reported dose taken per patient was earlier today. Per ED, pt was found to have significant dermatomal rash found in the lower neck extending to the L scapular region extending down the L arm. Additionally, she was noted to have a R side mid-back rash extending to the R flank into the abdomen. She was seen by her PCP who reported that she did not look well and advised her to come to the ED for further evaluation. ER course was notable for: (1) Temp 94.1, on Kaylee hugger - improved to 95.8, 132/84, WBC 2.4, Pl 129, Lac neg, trops neg (2) CXR showed no acute pathology (3) IV Acyclovir, IVf given; ID consulted with recommendation to give IV Cefepime for empiric treatment Recent Travel: Unable to obtain PAST MEDICAL HISTORY: As per HPI PAST SURGICAL HISTORY: None reported per EMR Social History: Smoking: Denies Alcohol: Denies Drugs: Denies Allergies Fish Containing Products Allergy (Severe, Verified 01/06/20 16:30) Swelling vancomycin Allergy (Severe, Verified 01/06/20 16:30) Swelling sulfamethoxazole [From Bactrim] Allergy (Intermediate, Verified 01/06/20 16:30) fever, abnl lfts trimethoprim [From Bactrim] Allergy (Intermediate, Verified 01/06/20 16:30) fever, abnl lfts clindamycin Allergy (Verified 01/06/20 16:30) Itching HOME MEDICATIONS: Home Medications Medication Instructions Recorded Albuterol Sulfate Inhaler - 1 - 2 inh PO QID PRN #1 inhaler 12/30/19 [Ventolin HFA Inhaler -] Amlodipine Besylate [Norvasc -] 5 mg PO DAILY #30 tablet 12/30/19 Atovaquone [Mepron Oral Solution -] 10 ml PO DAILY #300 ml 12/30/19 Beclomethasone Dipropionate [Qvar 2 puff IH BID #1 hfa.aeroba 12/30/19 Redihaler] Darunavir/Cob/Emtri/Tenof Alaf 1 each PO DAILY #30 tablet 12/30/19 [Symtuza [id number] mg Tab] REVIEW OF SYSTEMS Unable to obtain, except per HPI PHYSICAL EXAMINATION Vital Signs - 24 hr 01/06/20 01/06/20 01/06/20 13:36 14:36 14:59 Temperature 94.1 F L Pulse Rate 73 Respiratory 18 Rate Blood Pressure 140/110 H Blood Pressure [Right Arm] O2 Sat by Pulse 97 97 Oximetry (%) 01/06/20 16:30 Temperature Pulse Rate Respiratory 19 Rate Blood Pressure Blood Pressure 154/114 H [Right Arm] O2 Sat by Pulse 100 Oximetry (%) Limited physical exam due to pt non-compliance. GENERAL: Somnolent, but arousable to verbal stimuli. Uncooperative with exam, but when prompted, will answer questions appropriately. No acute distress. HEENT: AT/NC. EOMI. No visible facial rashes seen. NECK: LUNGS: CTA B/L. No wheezes, rhonchi, rales noted. HEART: RRR. Normal S1, S2. ABDOMEN: Obese. Non-tender, non-distended. Normoactive bowel sounds. Rest of exam limited. MUSCULOSKELETAL: Normal range of motion at all joints. No bony deformities or tenderness. No CVA tenderness. EXTREMITIES: No peripheral edema noted. NEUROLOGICAL: Cranial nerves II-XII intact. Normal speech. PSYCHIATRIC: Uncooperative. Easily irritable. SKIN: Unable to perform. CBC, BMP 01/06/20 14:09 01/06/20 14:09 Laboratory Tests 01/06/20 01/06/20 01/06/20 14:09 14:09 14:09 WBC 2.4 L Plt Count 129 L D LD Total 277 H Absolute CD3 Count Pending % CD3+ Lymphocytes Pending Absolute CD4 [place] Pending % CD4+ Lymphocyte Pending CD4/CD8 Ratio Pending % CD8+ Lymphocyte Pending Absolute CD8 Count Pending Imaging: * CXR: Large heart. No acute pathology * EKG: NSR, HR 69, QTc 447 ms, No ST-T changes ASSESSMENT/PLAN: 26F w/ pmhx of HIV (recently started on HAART) and asthma presented to the ED after being sent by her primary care physician for extreme body aches and chills found to be septic 2/2 ? disseminated herpes zoster in setting of non- compliance with HIV medications. #Sepsis 2/2 Herpes Zoster infection; in setting of HIV while non-compliant with HAART therapy. -Pt found to be hypothermic at 94.1, WBC 2.4, most recent CD4 count 29 (10/28) -In ED, given IV Acyclovir for coverage of Herpes Zoster. ID consulted with recommendation to start IV Cefepime for empiric coverage (+pseudomonal) given pt 's immunocompromised state, hypothermia, chills, leukopenia -Immunology panel pending -Droplet/contact precautions -IVf -BCx pending -UCx, SpCx ordered -Tylenol PRN for pain #AIDS; currently on Symtuza -Follows at [facility] with Dr. Kayli Alexander; seen today by PCP -Cont home med: Symtuza, Atovaquone -Follow up immunology panel #HTN; Stable, 132/84. Takes Amlodipine 5 mg at home. -Will hold home BP med in setting of sepsis #Asthma; Stable. No signs of acute exacerbation. Cont home med: Albuterol inhaler QID #Prophylaxis DVT: Lovenox #FEN -IVf -recheck lytes in AM -Sodium-controlled diet Dispo -Admit to med-surg Visit type - Emergency Visit Emergency Visit: Yes ED Registration Date: 01/06/20 Care time: The patient presented to the Emergency Department on the above date and was hospitalized for further evaluation of their emergent condition. - New Patient This patient is new to me today: Yes Date on this admission: 01/08/20 - Critical Care Critical Care patient: No ATTENDING PHYSICIAN STATEMENT I saw and evaluated the patient. I reviewed the resident's note and discussed the case with the resident. I agree with the resident's findings and plan as documented. SUBJECTIVE: OBJECTIVE: ASSESSMENT AND PLAN:
[2020-01-06] MEDS ORDERED: CEFEPIME 2 GM/100 ML BAG IVPB ONE (18:09)
[2020-01-06] MEDS ORDERED: CEFEPIME 2 GM/200 ML BAG IVPB ONE (18:12)
[2020-01-06] MEDS ORDERED: CEFEPIME 2 GM in DEXTROSE 5%-WATER 100 ML IVPB ONE (18:15)
[2020-01-06] MEDS ORDERED: LACTATED RINGERS SOLUTION 1,000 ML IV SCH (18:15)
[2020-01-06] MEDS ORDERED: ALBUTEROL SO4 HFA INHALER IH PRN (18:55)
--- NOTE | 2020-01-06 19:05 | PN ---
Teaching Attending Note Name of Resident: Lali Gallardo ATTENDING PHYSICIAN STATEMENT I saw and evaluated the patient. I reviewed the resident's note and discussed the case with the resident. I agree with the resident's findings and plan as documented. SUBJECTIVE: Complains of itching/pain left back. No fever/chills/cough/sputum/. No abdominal pain/nausea/vomiting/diarrhea/dysuria. OBJECTIVE: Hypothermic, Hemodynamically Stable. Last Vital Signs Temp Pulse Resp BP Pulse Ox 95.8 F L 89 19 132/84 99 01/06/20 18:12 01/06/20 18:12 01/06/20 16:30 01/06/20 18:12 01/06/20 18:12 HEENT - Atramatic, normocephalic Heart - S1, S2, RRR Lungs - clear to auscultation Abdomen - soft, non-tender. Bowel Sounds normal Extremities - no edema, no calf tenderness Neuro - AAO x 3. SENDY. Tone/Power normal all extremities. MS - small patch of vesicular rash along dermotomal distribution left back ( does not cross midline), vesicles not crusted yet. Old scars and skin thickening at sites of prior rash on back Laboratory Results - last 24 hr 01/06/20 01/06/20 01/06/20 14:09 14:09 14:09 WBC 2.4 L RBC 3.61 Hgb 11.9 Hct 35.8 MCV 99.1 H MCH 33.0 MCHC 33.3 RDW 14.0 D Plt Count 129 L D MPV 11.0 D Absolute Neuts (auto) 1.7 Neutrophils % 69.7 Lymphocytes % 18.1 D Monocytes % 8.7 Eosinophils % 3.0 Basophils % 0.5 Nucleated RBC % 0 PT with INR INR PTT (Actin FS) VBG pH POC VBG pCO2 POC VBG pO2 VBG HCO3 VBG O2 Sat (Lauren) VBG Base Excess Sodium 144 Potassium 3.7 Chloride 113 H Carbon Dioxide 28 Anion Gap 4 L BUN 15.2 Creatinine 0.9 Est GFR (CKD-EPI)AfAm 100.14 Est GFR (CKD-EPI)NonAf 86.41 Random Glucose 77 Lactic Acid 1.0 Calcium 8.8 Total Bilirubin 0.5 AST 23 ALT 25 Alkaline Phosphatase 105 LD Total Creatine Kinase Troponin I Total Protein 8.7 H Albumin 3.1 L 01/06/20 01/06/20 01/06/20 14:09 14:09 14:09 WBC RBC Hgb Hct MCV MCH MCHC RDW Plt Count MPV Absolute Neuts (auto) Neutrophils % Lymphocytes % Monocytes % Eosinophils % Basophils % Nucleated RBC % PT with INR 10.60 INR 0.90 PTT (Actin FS) 33.8 VBG pH 7.33 POC VBG pCO2 52.5 H POC VBG pO2 < 49 H VBG HCO3 27 VBG O2 Sat (Lauren) 55.6 L VBG Base Excess 1.1 Sodium Potassium Chloride Carbon Dioxide Anion Gap BUN Creatinine Est GFR (CKD-EPI)AfAm Est GFR (CKD-EPI)NonAf Random Glucose Lactic Acid Calcium Total Bilirubin AST ALT Alkaline Phosphatase LD Total Creatine Kinase Troponin I < 0.02 Total Protein Albumin 01/06/20 01/06/20 14:09 14:09 WBC RBC Hgb Hct MCV MCH MCHC RDW Plt Count MPV Absolute Neuts (auto) Neutrophils % Lymphocytes % Monocytes % Eosinophils % Basophils % Nucleated RBC % PT with INR INR PTT (Actin FS) VBG pH POC VBG pCO2 POC VBG pO2 VBG HCO3 VBG O2 Sat (Lauren) VBG Base Excess Sodium Potassium Chloride Carbon Dioxide Anion Gap BUN Creatinine Est GFR (CKD-EPI)AfAm Est GFR (CKD-EPI)NonAf Random Glucose Lactic Acid Calcium Total Bilirubin AST ALT Alkaline Phosphatase LD Total 277 H Creatine Kinase 59 Troponin I Total Protein Albumin Current Medications Generic Name Dose Route Start Last Admin Trade Name Freq PRN Reason Stop Dose Admin Enoxaparin Sodium 40 mg 01/06/20 18:15 Lovenox - SQ DAILY KIERAN Sodium Chloride 1,000 mls @ 250 mls/hr 01/06/20 14:45 01/06/20 15:30 Normal Saline - IV 250 mls/hr ASDIR KIERAN Administration Acyclovir 500 mg/ Dextrose 110 mls @ 100 mls/hr 01/07/20 02:00 IVPB Q8H-IV KIERAN Cefepime HCl 2 gm in 50 mls @ 100 mls/hr 01/07/20 02:00 Maxipime 2gm Ivpb (Premix) IVPB Q8H-IV KIERAN Protocol Cefepime HCl 2 gm/ Dextrose 100 mls @ 200 mls/hr 01/07/20 02:00 IVPB 01/08/20 01:59 Q8H-IV KIERAN Cefepime HCl 2 gm/ Dextrose 100 mls @ 100 mls/hr 01/06/20 18:15 01/06/20 18: 26 IVPB 01/06/20 19:14 100 mls/hr ONCE ONE Administration Protocol Home Medications Medication Instructions Recorded Albuterol Sulfate Inhaler - 1 - 2 inh PO QID PRN #1 inhaler 12/30/19 [Ventolin HFA Inhaler -] Amlodipine Besylate [Norvasc -] 5 mg PO DAILY #30 tablet 12/30/19 Atovaquone [Mepron Oral Solution -] 10 ml PO DAILY #300 ml 12/30/19 Beclomethasone Dipropionate [Qvar 2 puff IH BID #1 hfa.aeroba 12/30/19 Redihaler] Darunavir/Cob/Emtri/Tenof Alaf 1 each PO DAILY #30 tablet 12/30/19 [Symtuza [id number] mg Tab] ASSESSMENT AND PLAN: 26 year old female with AIDS (recently started on HAART at [facility]), Asthma presented to the ED after being sent by her primary care physician for myalgias , chills, rash. 1. Sepsis secondary to recurrent Hepes Zoster (? T3/4/5 dermatome) Hypothermia, Leukopenia ID consulted - started empirically on Cefepime and IV Acyclovir. HAART resumed. CXR - large heart, no acute findings. Septic Screen pending including Blood Cx 2. AIDS - on Symtuza ID consult CD 4 levels pending. 3. HTN - BP stable. Norvasc held in setting of sepsis. 4. Asthma - Stable. No evidence of acute exacerbation. Albuterol PRN. DVT Px - Lovenox SQ
[2020-01-06 20:37] VITALS: BMI 33.6
[2020-01-06] MEDS: ATOVAQUONE 750 MG/5 ML (UNIT-DOSE PACKAGING) PO SCH (20:43)
[2020-01-06] MEDS: ENOXAPARIN NA (PORCINE) 40 MG/0.4 ML DISP.SYRIN SQ SCH (20:44)
[2020-01-06] MEDS ORDERED: GABAPENTIN 100 MG CAPSULE PO SCH (22:00)
[2020-01-07] MEDS: CEFEPIME 2 GM in DEXTROSE 5%-WATER - 100 ML IVPB SCH ×2 (01:00→09:28)
[2020-01-07] MEDS ORDERED: ACYCLOVIR INJECTION 500 MG in DEXTROSE 5%-WATER - 100 ML IVPB SCH (02:00)
[2020-01-07] MEDS ORDERED: CEFEPIME HCL/D5W 2 GM/50 ML BAG IVPB SCH (02:00)
[2020-01-07] MEDS: ACETAMINOPHEN 325 MG TABLET (FP) PO PRN (03:00)
[2020-01-07] MEDS ORDERED: diphenhydrAMINE HCL 25 MG CAPSULE (FP) PO ONE (03:14)
[2020-01-07 08:22] LABS: BASO % 0.3 % (0-2.0); EOS % 3.5 % (0-4.5); HEMATOCRIT 30.4 % (32.4-45.2); HEMOGLOBIN 10.4 GM/dL (10.7-15.3); LYMPH % 24.2 % (8-40); MCH 33.3 pg (25.7-33.7); MCHC 34.2 g/dl (32.0-36.0); MEAN CELL VOLUME 97.5 fl (80-96); MEAN PLT VOLUME 9.2 fl (7.5-11.1); MONO % 6.4 % (3.8-10.2); NEUT % 65.6 % (42.8-82.8); PLATELET COUNT 102 K/MM3 (134-434); RBC 3.12 M/mm3 (3.60-5.2); RDW 13.8 % (11.6-15.6)
[2020-01-07 08:41] LABS: ALBUMIN 2.5 g/dl (3.4-5.0); BILIRUBIN,TOTAL 0.4 mg/dL (0.2-1); BLOOD UREA NITROGEN 16.2 mg/dL (7-18); CALCIUM 8.2 mg/dL (8.5-10.1); CREATININE 1.1 mg/dL (0.55-1.3); POTASSIUM 3.7 mmol/L (3.5-5.1); TOT PROT 7.2 g/dl (6.4-8.2)
[2020-01-07] MEDS: ENOXAPARIN NA (PORCINE) 40 MG/0.4 ML DISP.SYRIN SQ SCH (09:29)
[2020-01-07] MEDS ORDERED: FLU VACCINE QUAD 60 MCG/0.5 ML (MDV 19-20) IM ONE (10:00)
[2020-01-07] MEDS ORDERED: ACYCLOVIR INJECTION 1,000 MG in DEXTROSE 5%-WATER - 250 ML IVPB SCH (10:00)
[2020-01-07] MEDS: CEFEPIME HCL/D5W 2 GM/50 ML BAG IVPB SCH (11:24)
[2020-01-07] MEDS: PATIENT'S OWN MEDICATION (NON-FORMULARY) (Darunavir/Cob/Emtri/Tenof Alaf [Symtuza 800-150- PO SCH ×3 (11:24→13:36)
[2020-01-07] MEDS: MINERAL OIL/PETROLAT/WATER TOPICAL CREAM 454 GM JAR TP PRN (11:26)
--- NOTE | 2020-01-07 11:28 | PN ---
Progress Note (short form) - Note Progress Note: 29 yo with aids admitted with hypothermia, new rash on flank that is painful and raised reports rest of her skin with dry rash, and papular lesions is old and itchy and started before starting symtuza was lethargic in clinic (drinking henessey the night before) alert in ER reports chills was hypothermic zoster- auspect this is dermatomal not disseminated r/o sepsis with hypothermia and chills aids obesity multiple antiibotic allergies iv acyclovir (dose adjusted for obesity) IVF- must stay on IVF while on acyclovir cefepime for now pending blood cultures continue symtuza and mepron isolation d/w resident Problem List - Problems (1) Zoster Code(s): B02.9 - ZOSTER WITHOUT COMPLICATIONS (2) Hypothermia Code(s): T68.XXXA - HYPOTHERMIA, INITIAL ENCOUNTER (3) AIDS (acquired immunodeficiency syndrome), CD4 <=200 Code(s): B20 - HUMAN IMMUNODEFICIENCY VIRUS [HIV] DISEASE (4) Allergy to multiple antibiotics Code(s): Z88.1 - ALLERGY STATUS TO OTHER ANTIBIOTIC AGENTS STATUS
[2020-01-07] MEDS: SODIUM CHLORIDE 1,000 ML IV SCH ×2 (12:30→16:18)
--- NOTE | 2020-01-07 12:48 | EKG ---
Test Reason : Blood Pressure : / mmHG Vent. Rate : 069 BPM Atrial Rate : 069 BPM P-R Int : 238 ms QRS Dur : 074 ms QT Int : 418 ms P-R-T Axes : 047 032 061 degrees QTc Int : 447 ms SINUS RHYTHM WITH 1ST DEGREE A-V BLOCK OTHERWISE NORMAL ECG Confirmed by HOLLEY KIMBLE MD ([id number]) on 01/07/2020 12:47:58 PM Referred By: Confirmed By:HOLLEY KIMBLE MD
[2020-01-07] MEDS ORDERED: PT OWN MED DRAWER 7, Y5N ONE ×4 (13:38→23:35)
--- NOTE | 2020-01-07 14:17 | PN ---
Teaching Attending Note Name of Resident: Rodriguez He ATTENDING PHYSICIAN STATEMENT I saw and evaluated the patient. I reviewed the resident's note and discussed the case with the resident. I agree with the resident's findings and plan as documented. SUBJECTIVE: Complains of itching/pain left back. No fever/chills/cough/sputum/. No abdominal pain/nausea/vomiting/diarrhea/dysuria. OBJECTIVE: Hypothermi a resolved, Hemodynamically Stable. Last Vital Signs Temp Pulse Resp BP Pulse Ox 98.8 F 85 20 141/91 99 01/07/20 10:01/07/20 10:00 01/07/20 10:01/07/20 10:01/07/20 10:00 Heart - S1, S2, RRR Lungs - clear to auscultation Abdomen - soft, non-tender. Bowel Sounds normal Extremities - no edema, no calf tenderness Neuro - AAO x 3. SENDY. Tone/Power normal all extremities. MS - small patch of vesicular rash along dermotomal distribution left back ( does not cross midline), vesicles not crusted yet. Old scars and skin thickening /plaques at sites of prior rash on back Laboratory Results - last 24 hr 01/06/20 01/06/20 01/06/20 14:09 14:09 14:09 WBC 2.4 L RBC 3.61 Hgb 11.9 Hct 35.8 MCV 99.1 H MCH 33.0 MCHC 33.3 RDW 14.0 D Plt Count 129 L D MPV 11.0 D Absolute Neuts (auto) 1.7 Neutrophils % 69.7 Lymphocytes % 18.1 D Monocytes % 8.7 Eosinophils % 3.0 Basophils % 0.5 Nucleated RBC % 0 PT with INR INR PTT (Actin FS) VBG pH POC VBG pCO2 POC VBG pO2 VBG HCO3 VBG O2 Sat (Lauren) VBG Base Excess Sodium 144 Potassium 3.7 Chloride 113 H Carbon Dioxide 28 Anion Gap 4 L BUN 15.2 Creatinine 0.9 Est GFR (CKD-EPI)AfAm 100.14 Est GFR (CKD-EPI)NonAf 86.41 Random Glucose 77 Lactic Acid 1.0 Calcium 8.8 Total Bilirubin 0.5 AST 23 ALT 25 Alkaline Phosphatase 105 LD Total Creatine Kinase Troponin I Total Protein 8.7 H Albumin 3.1 L 01/06/20 01/06/20 01/06/20 14:09 14:09 14:09 WBC RBC Hgb Hct MCV MCH MCHC RDW Plt Count MPV Absolute Neuts (auto) Neutrophils % Lymphocytes % Monocytes % Eosinophils % Basophils % Nucleated RBC % PT with INR 10.60 INR 0.90 PTT (Actin FS) 33.8 VBG pH 7.33 POC VBG pCO2 52.5 H POC VBG pO2 < 49 H VBG HCO3 27 VBG O2 Sat (Lauren) 55.6 L VBG Base Excess 1.1 Sodium Potassium Chloride Carbon Dioxide Anion Gap BUN Creatinine Est GFR (CKD-EPI)AfAm Est GFR (CKD-EPI)NonAf Random Glucose Lactic Acid Calcium Total Bilirubin AST ALT Alkaline Phosphatase LD Total Creatine Kinase Troponin I < 0.02 Total Protein Albumin 01/06/20 01/06/20 01/07/20 14:09 14:09 06:30 WBC 2.0 L RBC 3.12 L Hgb 10.4 L Hct 30.4 L D MCV 97.5 H MCH 33.3 MCHC 34.2 RDW 13.8 Plt Count 102 L D MPV 9.2 D Absolute Neuts (auto) 1.3 L Neutrophils % 65.6 Lymphocytes % 24.2 D Monocytes % 6.4 Eosinophils % 3.5 Basophils % 0.3 Nucleated RBC % 0 PT with INR INR PTT (Actin FS) VBG pH POC VBG pCO2 POC VBG pO2 VBG HCO3 VBG O2 Sat (Lauren) VBG Base Excess Sodium Potassium Chloride Carbon Dioxide Anion Gap BUN Creatinine Est GFR (CKD-EPI)AfAm Est GFR (CKD-EPI)NonAf Random Glucose Lactic Acid Calcium Total Bilirubin AST ALT Alkaline Phosphatase LD Total 277 H Creatine Kinase 59 Troponin I Total Protein Albumin 01/07/20 06:30 WBC RBC Hgb Hct MCV MCH MCHC RDW Plt Count MPV Absolute Neuts (auto) Neutrophils % Lymphocytes % Monocytes % Eosinophils % Basophils % Nucleated RBC % PT with INR INR PTT (Actin FS) VBG pH POC VBG pCO2 POC VBG pO2 VBG HCO3 VBG O2 Sat (Lauren) VBG Base Excess Sodium 142 Potassium 3.7 Chloride 114 H Carbon Dioxide 24 Anion Gap 5 L BUN 16.2 Creatinine 1.1 Est GFR (CKD-EPI)AfAm 78.57 Est GFR (CKD-EPI)NonAf 67.79 Random Glucose 74 Lactic Acid Calcium 8.2 L Total Bilirubin 0.4 AST 18 ALT 19 Alkaline Phosphatase 85 LD Total Creatine Kinase Troponin I Total Protein 7.2 Albumin 2.5 L Current Medications Generic Name Dose Route Start Last Admin Trade Name Freq PRN Reason Stop Dose Admin Acetaminophen 650 mg 01/06/20 19:02 01/07/20 03:00 Tylenol - PO 650 mg Q4H PRN Administration PAIN LEVEL 6-10 Albuterol Sulfate 1 puff 01/06/20 18:55 Ventolin Hfa Inhaler - IH Q6H PRN WHEEZING Atovaquone 1,500 mg 01/06/20 19:00 01/06/20 20:43 Mepron - PO 1,500 mg 1800 KIERAN Administration Enoxaparin Sodium 40 mg 01/06/20 18:15 01/07/20 09:29 Lovenox - SQ 40 mg DAILY KIERAN Administration Cefepime HCl 1 gm/ Dextrose 100 mls @ 100 mls/hr 01/07/20 18:00 IVPB Q8H-IV KIERAN Protocol Sodium Chloride 1,000 mls @ 150 mls/hr 01/07/20 11:30 01/07/20 12:30 Normal Saline - IV 150 mls/hr ASDIR KIERAN Administration Acyclovir 800 mg/ Dextrose 266 mls @ 266 mls/hr 01/07/20 18:00 IVPB Q8H-IV KIERAN Multi-Ingredient Lotion 1 applic 01/07/20 09:35 01/07/20 11:26 Eucerin (Large Jar) - TP 1 applic BID PRN Administration DRY SKIN Non-Formulary Medication 1 each 01/07/20 12:00 01/07/20 13:35 Darunavir/Cob/Emtri/Tenof Alaf [Symtuza [id number] Mg Tab] PO 1 each DAILY KIERAN Administration Home Medications Medication Instructions Recorded Albuterol Sulfate Inhaler - 1 - 2 inh PO QID PRN #1 inhaler 12/30/19 [Ventolin HFA Inhaler -] Amlodipine Besylate [Norvasc -] 5 mg PO DAILY #30 tablet 12/30/19 Atovaquone [Mepron Oral Solution -] 10 ml PO DAILY #300 ml 12/30/19 Beclomethasone Dipropionate [Qvar 2 puff IH BID #1 hfa.aeroba 12/30/19 Redihaler] Darunavir/Cob/Emtri/Tenof Alaf 1 each PO DAILY #30 tablet 12/30/19 [Symtuza [id number] mg Tab] ASSESSMENT AND PLAN: 26 year old female with AIDS (recently started on HAART at [facility]), Asthma presented to the ED after being sent by her primary care physician for myalgias , chills, rash. 1. Sepsis secondary to recurrent Hepes Zoster (? T3/4/5 dermatome) Hypothermia resolved, Leukopenia resolved. CXR - large heart, no acute findings. Blood Cx pending ID consulted - started on IV Acyclovir and empirically on Cefepime. 2. AIDS - HAART resumed. ID consult CD 4 levels pending. 3. HTN - BP stable. Will resume Norvasc. 4. Asthma - Stable. No evidence of acute exacerbation. Albuterol PRN. DVT Px - Lovenox SQ
[2020-01-07] MEDS: amLODIPine BESYLATE 5 MG TABLET (FP) PO SCH (14:51)
--- NOTE | 2020-01-07 16:07 | PN ---
Physical Exam: SUBJECTIVE: Patient seen and examined. Pt c/o of itching throughout her body. No issues or c/o overnight. Denies f/c/n/v/d/sob. OBJECTIVE: Vital Signs Period Temp Pulse Resp BP Sys/Manriquez Pulse Ox Last 24 Hr 95.8 F-98.8 F 81-89 19-20 132-154/84-114 99-100 GENERAL: The patient is awake, alert, and fully oriented, in no acute distress. EYES: PERRL, extraocular movements intact, No ptosis. ENT: moist mucous membranes. NECK: supple. LUNGS: Breath sounds equal, clear to auscultation bilaterally, no wheezes HEART: Regular rate and rhythm, S1, S2 without murmur, rub or gallop. ABDOMEN: Soft, nontender, nondistended, normoactive bowel sounds, no guarding, Right rib pain, tender to touch EXTREMITIES: 2+ pulses, no edema. NEUROLOGICAL: Normal speech, gait not observed. PSYCH: Normal mood, normal affect. SKIN: Healed scars diffusely scattered across the body. Vesicular rash on the left back region under the scapula along the dermatomal distribution, tender to touch. Laboratory Results - last 24 hr 01/06/20 01/06/20 01/06/20 14:09 14:09 14:09 WBC 2.4 L RBC 3.61 Hgb 11.9 Hct 35.8 MCV 99.1 H MCH 33.0 MCHC 33.3 RDW 14.0 D Plt Count 129 L D MPV 11.0 D Absolute Neuts (auto) 1.7 Neutrophils % 69.7 Lymphocytes % 18.1 D Monocytes % 8.7 Eosinophils % 3.0 Basophils % 0.5 Nucleated RBC % 0 PT with INR INR PTT (Actin FS) VBG pH POC VBG pCO2 POC VBG pO2 VBG HCO3 VBG O2 Sat (Lauren) VBG Base Excess Sodium 144 Potassium 3.7 Chloride 113 H Carbon Dioxide 28 Anion Gap 4 L BUN 15.2 Creatinine 0.9 Est GFR (CKD-EPI)AfAm 100.14 Est GFR (CKD-EPI)NonAf 86.41 Random Glucose 77 Lactic Acid 1.0 Calcium 8.8 Total Bilirubin 0.5 AST 23 ALT 25 Alkaline Phosphatase 105 LD Total Creatine Kinase Troponin I Total Protein 8.7 H Albumin 3.1 L Active Medications Generic Name Dose Route Start Last Admin Trade Name Freq PRN Reason Stop Dose Admin Acetaminophen 650 mg 01/06/20 19:02 01/07/20 03:00 Tylenol - PO 650 mg Q4H PRN Administration PAIN LEVEL 6-10 Albuterol Sulfate 1 puff 01/06/20 18:55 Ventolin Hfa Inhaler - IH Q6H PRN WHEEZING Amlodipine Besylate 5 mg 01/07/20 14:30 01/07/20 14:51 Norvasc - PO 5 mg DAILY KIERAN Administration Atovaquone 1,500 mg 01/06/20 19:00 01/06/20 20:43 Mepron - PO 1,500 mg 1800 KIERAN Administration Enoxaparin Sodium 40 mg 01/06/20 18:15 01/07/20 09:29 Lovenox - SQ 40 mg DAILY KIERAN Administration Cefepime HCl 1 gm/ Dextrose 100 mls @ 100 mls/hr 01/07/20 18:00 IVPB Q8H-IV KIERAN Protocol Sodium Chloride 1,000 mls @ 150 mls/hr 01/07/20 11:30 01/07/20 12:30 Normal Saline - IV 150 mls/hr ASDIR KIERAN Administration Acyclovir 800 mg/ Dextrose 266 mls @ 266 mls/hr 01/07/20 18:00 IVPB Q8H-IV KIERAN Multi-Ingredient Lotion 1 applic 01/07/20 09:35 01/07/20 11:26 Eucerin (Large Jar) - TP 1 applic BID PRN Administration DRY SKIN Non-Formulary Medication 1 each 01/07/20 12:00 01/07/20 13:35 Darunavir/Cob/Emtri/Tenof Alaf [Symtuza [id number] Mg Tab] PO 1 each DAILY KIERAN Administration ASSESSMENT/PLAN: 29 y/o F, pmh of AIDs on HAART, followed at [facility], asthma, presented to the ED from her PCP office c/o of chills, myalgias and a rash on her back is admitted for sepsis 2/2 to herpes zoster rash #Sepsis w/ dermatomal vesicular rash 2/2 to herpes zoster infection Pt hypothermic at 94.1F on admission w/ leukopenia at 2.4 Disseminated zoster r/o, old healed scars present across the trunk Rash is present on the posterior trunk along a thoracic dermatome CXR: large heart and no acute findings Pt started on IV Acyclovir w/ IVF to prevent drug crystallization BCx pending Currently in Cefepime empirically to prevent AIDs defining infections/ illness. Cont Atovaquone 1500 mg #Acquired immunodeficiency syndrome Currently on HAART- Symtuza ID consulted- Dr. Byrne appreciated most recent CD4 count 29 (10/28) CD4 pending #Pruritis 2/2 to eczema vs fungal infection Eucerin given Benadryl if need #HTN Cont Norvasc #Asthma No evidence of acute exacerbation Albuterol PRN. #DVT ppx Lovenox SQ FEN Monitor electrolytes IVF at 150 Sodium controlled diet Dispo: monitor overnight, cont abx and antiviral, f/u CD4 count and Cx Visit type - Emergency Visit Emergency Visit: Yes ED Registration Date: 01/06/20 Care time: The patient presented to the Emergency Department on the above date and was hospitalized for further evaluation of their emergent condition. - New Patient This patient is new to me today: Yes Date on this admission: 01/08/20 - Critical Care Critical Care patient: No - Discharge Referral Referred to [facility] Med P.C.: No ATTENDING PHYSICIAN STATEMENT I saw and evaluated the patient. I reviewed the resident's note and discussed the case with the resident. I agree with the resident's findings and plan as documented. SUBJECTIVE: OBJECTIVE: ASSESSMENT AND PLAN:
[2020-01-07] MEDS ORDERED: CEFEPIME HCL 1 GM VIAL (RESTRICTED TO ID) ONE ×2 (17:02→23:35)
[2020-01-07] MEDS ORDERED: DEXTROSE 5%-WATER 100 ML IVPB ONE ×2 (17:03→23:35)
[2020-01-07] MEDS: ATOVAQUONE 750 MG/5 ML (UNIT-DOSE PACKAGING) PO SCH (17:13)
[2020-01-07] MEDS: CEFEPIME 1 GM in DEXTROSE 5%-WATER 100 ML IVPB SCH (17:14)
--- NOTE | 2020-01-07 17:37 | CONS ---
DATE OF CONSULTATION: DATE OF DICTATION: 01/07/2020 HISTORY OF PRESENT ILLNESS: This is a 29-year-old woman with AIDS. She is followed intermittently when she comes to the [facility]. She presented yesterday to the [facility] with lethargy and hypothermia. She was noted to have a rash consistent with zoster and sent to the emergency room. She reports that her most recent T- cells were 29. She was recently started on Symtuza. She has a history of hypertension. She is currently homeless. She notes that she had a rash prior to starting the Symtuza. It is itchy on her arms and her chest and abdomen. As well she noticed she now has a new painful rash on her right flank. ALLERGIES: She is allergic to FISH-CONTAINING PRODUCTS, to VANCOMYCIN which gives her swelling, BACTRIM which gives her fever, abnormal LFTs, and CLINDAMYCIN which causes itching. PAST MEDICAL HISTORY: She has a past medical history of hypertension and asthma as well as AIDS. She has a history of ecstasy use. She smokes a half-pack per day, and she drinks alcohol occasionally. Medical history is also notable for PCP in 2018. She has a history of prior pneumonia. She was last in the hospital in October, at which time she had right lower lobe pneumonia. At that time of discharge, she was to follow up in the clinic, but she did not present to the clinic until December 30. SURGICAL HISTORY: Unremarkable. SOCIAL HISTORY: She is currently homeless. MEDICATION: Her medications include Ventolin inhaler, amlodipine, Mepron for PCP prophylaxis, Qvar inhaler, and Symtuza. REVIEW OF SYSTEMS: She is alert and denies any nausea, vomiting, diarrhea, or dysuria. PHYSICAL EXAMINATION: General: She was hypothermic on admission with temperature of 94.5. Temperature now is 98.5. She is alert. Vital Signs: Pulse is 79, blood pressure 145/87, respiratory rate is 20. HEENT: Normocephalic. Eyes are anicteric. She has no thrush. Neck: Supple. Lungs: Clear to auscultation. Heart: Regular rate and rhythm. Abdomen: Soft, nontender. Extremities: Without edema. Skin: Notable for, she has a papular painful rash on her left flank consistent with dermatomal zoster. She has some multiple other excoriated papules. She also has a flat itchy rash in various locations. Both these she describes as chronic. LABORATORY: Her labs are notable for white count of 2, hemoglobin 10.4, platelets of 102. Her ANC is 103. Her BUN and creatinine are 16 and 1.2, LFTs are normal. Her UA is negative. Her last T-cells were 29 in October and chest x-ray is negative. Blood cultures have been sent. IMPRESSION: In summary, this is a 29-year-old woman who is intermittently in care with acquired immunodeficiency syndrome. She has a lot of disclosure issues which contribute to her not taking her medication. She is currently homeless as well. She has herpes zoster; . Suspect this is dermatomal and limited to her flank. She has a chronic itchy rash as well Rule out sepsis with hypothermia and chills, and she has multiple antibiotic allergies. I would treat her with intravenous acyclovir, dose adjusted for her obesity, intravenous fluids which she will need to be on while she stays on the acyclovir, cefepime for now pending blood cultures, should be able to stop this. Continue Symtuza for her human immunodeficiency virus and Mepron for Pneumocystis pneumonia prophylaxis. Would continue isolation for her shingles. The case was discussed with the resident. CHARLES LUO M.D. [id number] MTDD
[2020-01-07] MEDS: ACYCLOVIR INJECTION 800 MG in DEXTROSE 5%-WATER - 250 ML IVPB SCH (18:09)
[2020-01-08] MEDS: CEFEPIME 1 GM in DEXTROSE 5%-WATER 100 ML IVPB SCH ×3 (02:38→17:35)
[2020-01-08] MEDS: ACYCLOVIR INJECTION 800 MG in DEXTROSE 5%-WATER - 250 ML IVPB SCH ×4 (02:38→18:48)
[2020-01-08 08:14] LABS: HEMATOCRIT 31.8 % (32.4-45.2); MCH 33.4 pg (25.7-33.7); MCHC 34.4 g/dl (32.0-36.0); MEAN CELL VOLUME 96.9 fl (80-96); MEAN PLT VOLUME 10.2 fl (7.5-11.1); PLATELET COUNT 134 K/MM3 (134-434); RBC 3.28 M/mm3 (3.60-5.2); RDW 13.7 % (11.6-15.6); WHITE BLOOD COUNT 2.2 K/mm3 (4.0-10.0)
[2020-01-08] MEDS ORDERED: CEFEPIME HCL 1 GM VIAL (RESTRICTED TO ID) ONE ×2 (09:05→17:30)
[2020-01-08] MEDS ORDERED: DEXTROSE 5%-WATER 100 ML IVPB ONE ×2 (09:05→17:30)
[2020-01-08 09:23] LABS: BLOOD UREA NITROGEN 16.4 mg/dL (7-18); CALCIUM 8.8 mg/dL (8.5-10.1); CREATININE 1.1 mg/dL (0.55-1.3); POTASSIUM 3.8 mmol/L (3.5-5.1)
[2020-01-08] MEDS: ENOXAPARIN NA (PORCINE) 40 MG/0.4 ML DISP.SYRIN SQ SCH (09:30)
[2020-01-08] MEDS: amLODIPine BESYLATE 5 MG TABLET (FP) PO SCH (09:31)
[2020-01-08] MEDS: PATIENT'S OWN MEDICATION (NON-FORMULARY) (Darunavir/Cob/Emtri/Tenof Alaf [Symtuza 800-150- PO SCH (09:31)
[2020-01-08] MEDS: ACETAMINOPHEN 325 MG TABLET (FP) PO PRN (10:28)
[2020-01-08] MEDS: SODIUM CHLORIDE 1,000 ML IV SCH (11:07)
[2020-01-08] MEDS: MINERAL OIL/PETROLAT/WATER TOPICAL CREAM 454 GM JAR TP PRN (12:00)
--- NOTE | 2020-01-08 12:34 | PN ---
Physical Exam: SUBJECTIVE: Patient seen and examined. Pt c/o of itching throughout her body, coughing with sputum and headache. No issues or c/o overnight. Denies f/c/n/v/d/sob. OBJECTIVE: Vital Signs Period Temp Pulse Resp BP Sys/Manriquez Pulse Ox Last 24 Hr 97.6 F-98.5 F 79-110 20-20 140-159/85-95 100-100 GENERAL: The patient is awake, alert, and fully oriented, in no acute distress. EYES: PERRL, extraocular movements intact, No ptosis. ENT: moist mucous membranes. NECK: supple. LUNGS: Breath sounds equal, clear to auscultation bilaterally, no wheezes HEART: Regular rate and rhythm, S1, S2 without murmur, rub or gallop. ABDOMEN: Soft, nontender, nondistended, normoactive bowel sounds, no guarding, Right rib pain, tender to touch EXTREMITIES: 2+ pulses, no edema. NEUROLOGICAL: Normal speech, gait not observed. PSYCH: Normal mood, normal affect. SKIN: Healed scars diffusely scattered across the body. Vesicular rash on the left back region under the scapula along the dermatomal distribution, tender to touch. Laboratory Results - last 24 hr 01/06/20 01/08/20 01/08/20 14:09 07:50 09:05 WBC 3.2 L 2.2 L RBC 3.28 L Hgb 11.0 Hct 31.8 L MCV 96.9 H MCH 33.4 MCHC 34.4 RDW 13.7 Plt Count 134 D MPV 10.2 D Absolute Lymphs (auto) 0.7 Lymphocytes 22 Nucleated RBCs TNP Sodium 142 Potassium 3.8 Chloride 113 H Carbon Dioxide 25 Anion Gap 4 L BUN 16.4 Creatinine 1.1 Est GFR (CKD-EPI)AfAm 78.57 Est GFR (CKD-EPI)NonAf 67.79 Random Glucose 76 Calcium 8.8 Absolute CD3 Count 417 L % CD3+ Lymphocytes 59.5 Absolute CD4 [place] 97 L % CD4+ Lymphocyte 13.8 L CD4/CD8 Ratio 0.33 L % CD8+ Lymphocyte 41.3 H Absolute CD8 Count 289 Active Medications Current Medications Acetaminophen (Tylenol -) 650 mg PO Q4H PRN PRN Reason: PAIN LEVEL 6-10 Last Admin: 01/08/20 10:28 Dose: 650 mg Albuterol Sulfate (Ventolin Hfa Inhaler -) 1 puff IH Q6H PRN PRN Reason: WHEEZING Amlodipine Besylate (Norvasc -) 5 mg PO DAILY [facility] Last Admin: 01/08/20 09:31 Dose: 5 mg Atovaquone (Mepron -) 1,500 mg PO 1800 [facility] Last Admin: 01/07/20 17:13 Dose: 1,500 mg Enoxaparin Sodium (Lovenox -) 40 mg SQ DAILY [facility] Last Admin: 01/08/20 09:30 Dose: 40 mg Cefepime HCl 1 gm/ Dextrose 100 mls @ 100 mls/hr IVPB Q8H-IV KIERAN; Protocol Last Admin: 01/08/20 09:26 Dose: 100 mls/hr Acyclovir 800 mg/ Dextrose 266 mls @ 266 mls/hr IVPB Q8H-IV KIERAN Last Admin: 01/08/20 12:21 Dose: 266 mls/hr Sodium Chloride (Normal Saline -) 1,000 mls @ 100 mls/hr IV ASDIR [facility] Last Admin: 01/08/20 11:07 Dose: 100 mls/hr Multi-Ingredient Lotion (Eucerin (Large Jar) -) 1 applic TP BID PRN PRN Reason: DRY SKIN Last Admin: 01/07/20 11:26 Dose: 1 applic Non-Formulary Medication (Darunavir/Cob/Emtri/Tenof Alaf [Symtuza [id number] Mg Tab]) 1 each PO DAILY [facility] Last Admin: 01/08/20 09:31 Dose: 1 each ASSESSMENT/PLAN: 29 y/o F, pmh of AIDs on HAART, followed at [facility], asthma, presented to the ED from her PCP office c/o of chills, myalgias and a rash on her back is admitted for sepsis 2/2 to herpes zoster rash #Sepsis w/ dermatomal vesicular rash 2/2 to herpes zoster infection Pt hypothermic at 94.1F on admission w/ leukopenia at 2.4 Disseminated zoster r/o, old healed scars present across the trunk Rash is present on the posterior trunk along a thoracic dermatome CXR: large heart and no acute findings Pt started on IV Acyclovir w/ IVF to prevent drug crystallization BCx negative UCx pending Currently in Cefepime empirically to prevent AIDs defining infections/ illness. Cont Atovaquone 1500 mg #Tussis 2/2 to URI vs fluid overload Phlegm is light yellow in color Decreased IVF to 100 CXR ordered #Acquired immunodeficiency syndrome Currently on HAART- Jeremy ID consulted- Dr. Byrne appreciated most recent CD4 count 29 (10/28) CD4 pending #Pruritis 2/2 to eczema vs fungal infection Eucerin given Benadryl if need #HTN Cont Norvasc #Asthma No evidence of acute exacerbation Albuterol PRN. #DVT ppx Lovenox SQ FEN Monitor electrolytes IVF at 150 Sodium controlled diet Dispo: monitor overnight, cont abx and antiviral, f/u CD4 count and Cx Visit type - Emergency Visit Emergency Visit: Yes ED Registration Date: 01/06/20 Care time: The patient presented to the Emergency Department on the above date and was hospitalized for further evaluation of their emergent condition. - New Patient This patient is new to me today: Yes Date on this admission: 01/10/20 - Critical Care Critical Care patient: No - Discharge Referral Referred to [facility] Med P.C.: No ATTENDING PHYSICIAN STATEMENT I saw and evaluated the patient. I reviewed the resident's note and discussed the case with the resident. I agree with the resident's findings and plan as documented. SUBJECTIVE: OBJECTIVE: ASSESSMENT AND PLAN:
--- NOTE | 2020-01-08 15:58 | PN ---
Teaching Attending Note Name of Resident: Rodriguez He ATTENDING PHYSICIAN STATEMENT I saw and evaluated the patient. I reviewed the resident's note and discussed the case with the resident. I agree with the resident's findings and plan as documented. SUBJECTIVE: Complains of headache. No photophobia/neck stiffness. No fever/ chills/cough/sputum/. No abdominal pain/nausea/vomiting/diarrhea/dysuria. OBJECTIVE: Hypothermia resolved, Hemodynamically Stable. Last Vital Signs Temp Pulse Resp BP Pulse Ox 98 F 95 H 20 144/86 100 01/08/20 14:00 01/08/20 14:00 01/08/20 14:01/08/20 14:01/08/20 10:00 Heart - S1, S2, RRR Lungs - clear to auscultation Abdomen - soft, non-tender. Bowel Sounds normal Extremities - no edema, no calf tenderness Neuro - AAO x 3. SENDY. Tone/Power normal all extremities. MS - small patch of vesicular rash along dermotomal distribution left back ( does not cross midline), vesicles not crusted yet. Old scars and skin thickening /plaques at sites of prior rash on back Laboratory Results - last 24 hr 01/06/20 01/08/20 01/08/20 14:09 07:50 09:05 WBC 3.2 L 2.2 L RBC 3.28 L Hgb 11.0 Hct 31.8 L MCV 96.9 H MCH 33.4 MCHC 34.4 RDW 13.7 Plt Count 134 D MPV 10.2 D Absolute Lymphs (auto) 0.7 Lymphocytes 22 Nucleated RBCs TNP Sodium 142 Potassium 3.8 Chloride 113 H Carbon Dioxide 25 Anion Gap 4 L BUN 16.4 Creatinine 1.1 Est GFR (CKD-EPI)AfAm 78.57 Est GFR (CKD-EPI)NonAf 67.79 Random Glucose 76 Calcium 8.8 Absolute CD3 Count 417 L % CD3+ Lymphocytes 59.5 Absolute CD4 [place] 97 L % CD4+ Lymphocyte 13.8 L CD4/CD8 Ratio 0.33 L % CD8+ Lymphocyte 41.3 H Absolute CD8 Count 289 Current Medications Generic Name Dose Route Start Last Admin Trade Name Freq PRN Reason Stop Dose Admin Acetaminophen 650 mg 01/06/20 19:02 01/08/20 10:28 Tylenol - PO 650 mg Q4H PRN Administration PAIN LEVEL 6-10 Albuterol Sulfate 1 puff 01/06/20 18:55 Ventolin Hfa Inhaler - IH Q6H PRN WHEEZING Amlodipine Besylate 5 mg 01/07/20 14:30 01/08/20 09:31 Norvasc - PO 5 mg DAILY KIERAN Administration Atovaquone 1,500 mg 01/06/20 19:00 01/07/20 17:13 Mepron - PO 1,500 mg 1800 KIERAN Administration Enoxaparin Sodium 40 mg 01/06/20 18:15 01/08/20 09:30 Lovenox - SQ 40 mg DAILY KIERAN Administration Cefepime HCl 1 gm/ Dextrose 100 mls @ 100 mls/hr 01/07/20 18:00 01/08/20 09: 26 IVPB 100 mls/hr Q8H-IV KIERAN Administration Protocol Acyclovir 800 mg/ Dextrose 266 mls @ 266 mls/hr 01/07/20 18:00 01/08/20 12:21 IVPB 266 mls/hr Q8H-IV KIERAN Administration Sodium Chloride 1,000 mls @ 100 mls/hr 01/08/20 10:17 01/08/20 11:07 Normal Saline - IV 100 mls/hr ASDIR KIERAN Administration Multi-Ingredient Lotion 1 applic 01/07/20 09:35 01/07/20 11:26 Eucerin (Large Jar) - TP 1 applic BID PRN Administration DRY SKIN Non-Formulary Medication 1 each 01/07/20 12:00 01/08/20 09:31 Darunavir/Cob/Emtri/Tenof Alaf [Symtuza [id number] Mg Tab] PO 1 each DAILY KIERAN Administration Home Medications Medication Instructions Recorded Albuterol Sulfate Inhaler - 1 - 2 inh PO QID PRN #1 inhaler 12/30/19 [Ventolin HFA Inhaler -] Amlodipine Besylate [Norvasc -] 5 mg PO DAILY #30 tablet 12/30/19 Atovaquone [Mepron Oral Solution -] 10 ml PO DAILY #300 ml 12/30/19 Beclomethasone Dipropionate [Qvar 2 puff IH BID #1 hfa.aeroba 12/30/19 Redihaler] Darunavir/Cob/Emtri/Tenof Alaf 1 each PO DAILY #30 tablet 12/30/19 [Symtuza [id number] mg Tab] ASSESSMENT AND PLAN: 26 year old female with AIDS (recently started on HAART at [facility]), Asthma presented to the ED after being sent by her primary care physician for myalgias , chills, rash. 1. Sepsis secondary to recurrent Hepes Zoster (Dermatomal, no evidence of dissemination) - sepsis resolved Hypothermia resolved, Leukopenia resolved. CXR - large heart, no acute findings. Blood Cx negative ID consulted - started on IV Acyclovir and empirically on Cefepime. Cough, yellow sputum, CXR clear, Flu swab requested. 2. AIDS - HAART resumed. Mepron Px. ID following 3. HTN - resumed on Norvasc. 4. Asthma - Stable. No evidence of acute exacerbation. Albuterol PRN. DVT Px - Lovenox SQ
[2020-01-08] MEDS ORDERED: PT OWN MED DRAWER 7, Y5N ONE (17:32)
[2020-01-08] MEDS: ATOVAQUONE 750 MG/5 ML (UNIT-DOSE PACKAGING) PO SCH (17:35)
--- NOTE | 2020-01-08 20:20 | PN ---
Progress Note, Physician History of Present Illness: AWAKE, ALERT SEATED IN BED C/O L FLANK PAIN NO C/O F/C HYPOTHERMIA IMPROVED CULTURES PENDING - Current Medication List Current Medications: Active Medications Acetaminophen (Tylenol -) 650 mg PO Q4H PRN PRN Reason: PAIN LEVEL 6-10 Last Admin: 01/08/20 10:28 Dose: 650 mg Albuterol Sulfate (Ventolin Hfa Inhaler -) 1 puff IH Q6H PRN PRN Reason: WHEEZING Amlodipine Besylate (Norvasc -) 5 mg PO DAILY [facility] Last Admin: 01/08/20 09:31 Dose: 5 mg Atovaquone (Mepron -) 1,500 mg PO 1800 KIERAN Last Admin: 01/08/20 17:35 Dose: 1,500 mg Enoxaparin Sodium (Lovenox -) 40 mg SQ DAILY K[facility] Last Admin: 01/08/20 09:30 Dose: 40 mg Cefepime HCl 1 gm/ Dextrose 100 mls @ 100 mls/hr IVPB Q8H-IV KIERAN; Protocol Last Admin: 01/08/20 17:35 Dose: 100 mls/hr Acyclovir 800 mg/ Dextrose 266 mls @ 266 mls/hr IVPB Q8H-IV KIERAN Last Admin: 01/08/20 18:48 Dose: 266 mls/hr Sodium Chloride (Normal Saline -) 1,000 mls @ 100 mls/hr IV ASDIR [facility] Last Admin: 01/08/20 11:07 Dose: 100 mls/hr Multi-Ingredient Lotion (Eucerin (Large Jar) -) 1 applic TP BID PRN PRN Reason: DRY SKIN Last Admin: 01/08/20 12:00 Dose: 1 applic Non-Formulary Medication (Darunavir/Cob/Emtri/Tenof Alaf [Symtuza [id number]- 10 Mg Tab]) 1 each PO DAILY [facility] Last Admin: 01/08/20 09:31 Dose: 1 each - Objective Vital Signs: Vital Signs Temperature 98.2 F 01/08/20 17:33 Pulse Rate 90 01/08/20 17:33 Respiratory Rate 20 01/08/20 17:33 Blood Pressure 158/96 01/08/20 17:33 O2 Sat by Pulse Oximetry (%) 100 01/08/20 10:00 Constitutional: Yes: No Distress Cardiovascular: Yes: Regular Rate and Rhythm, S1, S2 Respiratory: Yes: CTA Bilaterally Gastrointestinal: Yes: Normal Bowel Sounds, Soft Integumentary: Yes: Other (RAISED MACULOPAPULAR RASH L FLANK) Labs: CBC, BMP 01/08/20 07:50 01/08/20 09:05 INR, PTT INR 0.90 (0.83-1.09) 01/06/20 14:09 Assessment/Plan VZV L FLANK HYPOTHERMIA R/O SEPSIS HIV/AIDS LEUKOPENIA AWAIT C/S CONTINUE ACV/ CEFEPIME
[2020-01-09] MEDS ORDERED: PT OWN MED DRAWER 7, Y5N ONE ×2 (01:19→17:33)
[2020-01-09] MEDS ORDERED: DEXTROSE 5%-WATER 100 ML IVPB ONE ×3 (01:19→17:32)
[2020-01-09] MEDS ORDERED: CEFEPIME HCL 1 GM VIAL (RESTRICTED TO ID) ONE ×3 (01:19→17:32)
[2020-01-09] MEDS: CEFEPIME 1 GM in DEXTROSE 5%-WATER 100 ML IVPB SCH ×3 (01:34→17:39)
[2020-01-09] MEDS: ACYCLOVIR INJECTION 800 MG in DEXTROSE 5%-WATER - 250 ML IVPB SCH ×3 (01:35→18:36)
[2020-01-09 08:43] LABS: HEMATOCRIT 30.8 % (32.4-45.2); HEMOGLOBIN 10.7 GM/dL (10.7-15.3); MCH 33.6 pg (25.7-33.7); MCHC 34.9 g/dl (32.0-36.0); MEAN CELL VOLUME 96.2 fl (80-96); MEAN PLT VOLUME 9.9 fl (7.5-11.1); PLATELET COUNT 134 K/MM3 (134-434); RDW 13.4 % (11.6-15.6)
[2020-01-09 08:56] LABS: BLOOD UREA NITROGEN 14.3 mg/dL (7-18); CALCIUM 8.4 mg/dL (8.5-10.1); POTASSIUM 3.8 mmol/L (3.5-5.1)
[2020-01-09] MEDS: PATIENT'S OWN MEDICATION (NON-FORMULARY) (Darunavir/Cob/Emtri/Tenof Alaf [Symtuza 800-150- PO SCH (09:09)
[2020-01-09] MEDS: ENOXAPARIN NA (PORCINE) 40 MG/0.4 ML DISP.SYRIN SQ SCH (09:10)
[2020-01-09] MEDS: amLODIPine BESYLATE 5 MG TABLET (FP) PO SCH (09:10)
[2020-01-09] MEDS: SODIUM CHLORIDE 1,000 ML IV SCH (09:17)
[2020-01-09] MEDS ORDERED: diphenhydrAMINE HCL 25 MG CAPSULE (FP) PO ONE (10:30)
[2020-01-09] MEDS: MINERAL OIL/PETROLAT/WATER TOPICAL CREAM 454 GM JAR TP PRN (13:40)
--- NOTE | 2020-01-09 15:40 | PN ---
Progress Note (short form) - Note Progress Note: SUBJECTIVE: Headache improving. No photophobia/neck stiffness. No fever/chills/ cough/sputum/. No abdominal pain/nausea/vomiting/diarrhea/dysuria. complains of itching. OBJECTIVE: Hypothermia resolved, Hemodynamically Stable. Last Vital Signs Temp Pulse Resp BP Pulse Ox 98.2 F 90 20 140/76 99 01/09/20 14:00 01/09/20 14:00 01/09/20 14:00 01/09/20 14:01/09/20 10:00 Heart - S1, S2, RRR Lungs - clear to auscultation Abdomen - soft, non-tender. Bowel Sounds normal Extremities - no edema, no calf tenderness Neuro - AAO x 3. SENDY. Tone/Power normal all extremities. MS - small patch of vesicular rash along dermotomal distribution left back ( does not cross midline), vesicles not crusted yet. Old scars and skin thickening /plaques at sites of prior rash on back Laboratory Results - last 24 hr 01/08/20 01/09/20 01/09/20 16:00 07:10 07:10 WBC 2.0 L RBC 3.20 L Hgb 10.7 Hct 30.8 L MCV 96.2 H MCH 33.6 MCHC 34.9 RDW 13.4 Plt Count 134 MPV 9.9 Sodium 140 Potassium 3.8 Chloride 112 H Carbon Dioxide 24 Anion Gap 4 L BUN 14.3 Creatinine 1.0 Est GFR (CKD-EPI)AfAm 88.17 Est GFR (CKD-EPI)NonAf 76.07 Random Glucose 85 Calcium 8.4 L Influenza A (Rapid) Negative Influenza B (Rapid) Negative Current Medications Generic Name Dose Route Start Last Admin Trade Name Freq PRN Reason Stop Dose Admin Acetaminophen 650 mg 01/06/20 19:02 01/08/20 10:28 Tylenol - PO 650 mg Q4H PRN Administration PAIN LEVEL 6-10 Albuterol Sulfate 1 puff 01/06/20 18:55 Ventolin Hfa Inhaler - IH Q6H PRN WHEEZING Amlodipine Besylate 5 mg 01/07/20 14:30 01/09/20 09:10 Norvasc - PO 5 mg DAILY KIERAN Administration Atovaquone 1,500 mg 01/06/20 19:00 01/08/20 17:35 Mepron - PO 1,500 mg 1800 KIERAN Administration Enoxaparin Sodium 40 mg 01/06/20 18:15 01/09/20 09:10 Lovenox - SQ 40 mg DAILY KIERAN Administration Cefepime HCl 1 gm/ Dextrose 100 mls @ 100 mls/hr 01/07/20 18:00 01/09/20 09: 10 IVPB 100 mls/hr Q8H-IV KIERAN Administration Protocol Acyclovir 800 mg/ Dextrose 266 mls @ 266 mls/hr 01/07/20 18:00 01/09/20 10:52 IVPB 266 mls/hr Q8H-IV KIERAN Administration Sodium Chloride 1,000 mls @ 100 mls/hr 01/08/20 10:17 01/09/20 09:17 Normal Saline - IV Not Given ASDIR [facility] Multi-Ingredient Lotion 1 applic 01/07/20 09:35 01/08/20 12:00 Eucerin (Large Jar) - TP 1 applic BID PRN Administration DRY SKIN Non-Formulary Medication 1 each 01/07/20 12:00 01/09/20 09:09 Darunavir/Cob/Emtri/Tenof Alaf [Symtuza [id number] Mg Tab] PO 1 each DAILY KIERAN Administration Home Medications Medication Instructions Recorded Albuterol Sulfate Inhaler - 1 - 2 inh PO QID PRN #1 inhaler 12/30/19 [Ventolin HFA Inhaler -] Amlodipine Besylate [Norvasc -] 5 mg PO DAILY #30 tablet 12/30/19 Atovaquone [Mepron Oral Solution -] 10 ml PO DAILY #300 ml 12/30/19 Beclomethasone Dipropionate [Qvar 2 puff IH BID #1 hfa.aeroba 12/30/19 Redihaler] Darunavir/Cob/Emtri/Tenof Alaf 1 each PO DAILY #30 tablet 12/30/19 [Symtuza [id number] mg Tab] ASSESSMENT AND PLAN: 26 year old female with AIDS (recently started on HAART at [facility]), Asthma presented to the ED after being sent by her primary care physician for myalgias , chills, rash. 1. Recurrent Herpes Zoster (Dermatomal, no evidence of dissemination) Hypothermia resolved. CXR - large heart, no acute findings. Blood Cx negative Cough, yellow sputum, CXR clear, Flu negative ID consulted - started on IV Acyclovir and empirically on Cefepime. Benadryl for itch. 2. AIDS - HAART resumed. Mepron Px. ID following 3. HTN - resumed on Norvasc. 4. Asthma - Stable. No evidence of acute exacerbation. Albuterol PRN. DVT Px - Lovenox SQ Visit type - Emergency Visit Emergency Visit: Yes ED Registration Date: 01/06/20 Care time: The patient presented to the Emergency Department on the above date and was hospitalized for further evaluation of their emergent condition. - New Patient This patient is new to me today: No - Critical Care Critical Care patient: No - Discharge Referral Referred to [facility] Med P.C.: No
[2020-01-09] MEDS: ATOVAQUONE 750 MG/5 ML (UNIT-DOSE PACKAGING) PO SCH (17:39)
[2020-01-10] MEDS ORDERED: CEFEPIME HCL 1 GM VIAL (RESTRICTED TO ID) ONE ×2 (00:43→08:54)
[2020-01-10] MEDS ORDERED: DEXTROSE 5%-WATER 100 ML IVPB ONE ×2 (00:44→08:54)
[2020-01-10] MEDS ORDERED: PT OWN MED DRAWER 7, Y5N ONE ×4 (00:44→14:39)
[2020-01-10] MEDS: ACYCLOVIR INJECTION 800 MG in DEXTROSE 5%-WATER - 250 ML IVPB SCH ×2 (01:10→12:43)
[2020-01-10] MEDS: CEFEPIME 1 GM in DEXTROSE 5%-WATER 100 ML IVPB SCH ×2 (01:10→09:20)
[2020-01-10] MEDS: PATIENT'S OWN MEDICATION (NON-FORMULARY) (Darunavir/Cob/Emtri/Tenof Alaf [Symtuza 800-150- PO SCH (09:20)
[2020-01-10] MEDS: ENOXAPARIN NA (PORCINE) 40 MG/0.4 ML DISP.SYRIN SQ SCH (09:21)
[2020-01-10] MEDS: amLODIPine BESYLATE 5 MG TABLET (FP) PO SCH (09:22)
[2020-01-10] MEDS: SODIUM CHLORIDE 1,000 ML IV SCH (11:39)
--- NOTE | 2020-01-10 11:45 | PN ---
Progress Note (short form) - Note Progress Note: doing well, painful rash on flank resolved no cough still with old itchy rash with flaky skin Vital Signs Period Temp Pulse Resp BP Sys/Manriquez Pulse Ox Last 24 Hr 98.1 F-98.5 F 90-103 18-20 131-145/75-84 100-100 cor-rrr lungs clear abd soft,nt ext flank rash resolved dry scaly skin unchanged CBC, BMP 01/09/20 07:10 01/09/20 07:10 Microbiology 01/06/20 14:09 Blood - Peripheral Venous Blood Culture - Preliminary NO GROWTH OBTAINED AFTER 72 HOURS, INCUBATION TO CONTINUE FOR 2 DAYS. 01/06/20 14:09 Blood - Peripheral Venous Blood Culture - Preliminary NO GROWTH OBTAINED AFTER 72 HOURS, INCUBATION TO CONTINUE FOR 2 DAYS. 01/07/20 15:20 Urine - Urine Clean Catch Urine Culture - Final NO GROWTH OBTAINED a/p zoster- suspect this is dermatomal d/c acyclovir, d/c cefepime can switch to po valtrex 1 g po tid to complete 7 days aids-continue symtuza and mepron obesity multiple antiibotic allergies i can f/u at the [facility] this week
--- NOTE | 2020-01-10 15:04 | PN ---
Teaching Attending Note Name of Resident: Rodriguez He ATTENDING PHYSICIAN STATEMENT I saw and evaluated the patient. I reviewed the resident's note and discussed the case with the resident. I agree with the resident's findings and plan as documented. SUBJECTIVE: Headache improved. No photophobia/neck stiffness. No fever/chills/ cough/sputum/. No abdominal pain/nausea/vomiting/diarrhea/dysuria. Itching improved. OBJECTIVE: Hypothermia resolved, Hemodynamically Stable. Last Vital Signs Temp Pulse Resp BP Pulse Ox 98.4 F 100 H 20 140/84 100 01/10/20 09:17 01/10/20 09:17 01/10/20 10:00 01/10/20 09:17 01/09/20 21:00 Heart - S1, S2, RRR Lungs - clear to auscultation Abdomen - soft, non-tender. Bowel Sounds normal Extremities - no edema, no calf tenderness Neuro - AAO x 3. SENDY. Tone/Power normal all extremities. MS - small patch of vesicular rash along dermotomal distribution left back ( does not cross midline) resolving,. Old scars and skin thickening/plaques at sites of prior rash on back Current Medications Generic Name Dose Route Start Last Admin Trade Name Freq PRN Reason Stop Dose Admin Acetaminophen 650 mg 01/06/20 19:02 01/08/20 10:28 Tylenol - PO 650 mg Q4H PRN Administration PAIN LEVEL 6-10 Albuterol Sulfate 1 puff 01/06/20 18:55 Ventolin Hfa Inhaler - IH Q6H PRN WHEEZING Amlodipine Besylate 5 mg 01/07/20 14:30 01/10/20 09:22 Norvasc - PO 5 mg DAILY KIERAN Administration Atovaquone 1,500 mg 01/06/20 19:00 01/09/20 17:39 Mepron - PO 1,500 mg 1800 KIERAN Administration Enoxaparin Sodium 40 mg 01/06/20 18:15 01/10/20 09:21 Lovenox - SQ 40 mg DAILY KIERAN Administration Acyclovir 800 mg/ Dextrose 266 mls @ 266 mls/hr 01/07/20 18:00 01/10/20 12:43 IVPB 266 mls/hr Q8H-IV KIERAN Administration Sodium Chloride 1,000 mls @ 100 mls/hr 01/08/20 10:17 01/10/20 11:39 Normal Saline - IV 100 mls/hr ASDIR KIERAN Administration Multi-Ingredient Lotion 1 applic 01/07/20 09:35 01/09/20 13:40 Eucerin (Large Jar) - TP 1 applic BID PRN Administration DRY SKIN Non-Formulary Medication 1 each 01/07/20 12:00 01/10/20 09:20 Darunavir/Cob/Emtri/Tenof Alaf [Symtuza [id number] Mg Tab] PO 1 each DAILY KIERAN Administration Home Medications Medication Instructions Recorded Albuterol Sulfate Inhaler - 1 - 2 inh PO QID PRN #1 inhaler 12/30/19 [Ventolin HFA Inhaler -] Amlodipine Besylate [Norvasc -] 5 mg PO DAILY #30 tablet 12/30/19 Atovaquone [Mepron Oral Solution -] 10 ml PO DAILY #300 ml 12/30/19 Beclomethasone Dipropionate [Qvar 2 puff IH BID #1 hfa.aeroba 12/30/19 Redihaler] Darunavir/Cob/Emtri/Tenof Alaf 1 each PO DAILY #30 tablet 12/30/19 [Symtuza [id number] mg Tab] Mineral Oil/Petrolat,Wht/Water 1 applic TP BID PRN jar 01/10/20 [Eucerin (Large Jar) -] Valacyclovir HCl [Valtrex] 1,000 mg PO TID #21 tablet 01/10/20 ASSESSMENT AND PLAN: 26 year old female with AIDS (recently started on HAART at [facility]), Asthma presented to the ED after being sent by her primary care physician for myalgias , chills, rash. 1. Recurrent Herpes Zoster (Dermatomal, no evidence of dissemination) CXR - large heart, no acute findings. Blood Cx negative Cough, yellow sputum, CXR clear, Flu negative ID consulted - received 4 days of IV Acyclovir and empirically on Cefepime - can be discontinued as per ID. For discharge on Valtrex 1g TID for 7 days. 2. AIDS - HAART resumed. Mepron Px. ID follow-up at [facility] on discharge. 3. HTN - resumed on Norvasc. 4. Asthma - Stable. No evidence of acute exacerbation. Albuterol PRN. Medically stable for discharge. SW/CM to iron out discharge plan -[facility] versus [facility].
[2020-01-10 15:07] VITALS: BP 132/77; PULSE 98; TEMP 98.1
--- NOTE | 2020-01-10 17:05 | DS ---
Physical Exam: SUBJECTIVE: Patient seen and examined OBJECTIVE: Vital Signs Period Temp Pulse Resp BP Sys/Manriquez Pulse Ox Last 24 Hr 98.1 F-98.5 F 92-103 18-20 131-145/75-84 100-100 PHYSICAL EXAM GENERAL: The patient is awake, alert, and fully oriented, in no acute distress. EYES: PERRL, extraocular movements intact, No ptosis. ENT: moist mucous membranes. NECK: supple. LUNGS: Breath sounds equal, clear to auscultation bilaterally, no wheezes HEART: Regular rate and rhythm, S1, S2 without murmur, rub or gallop. ABDOMEN: Soft, nontender, nondistended, normoactive bowel sounds, no guarding, Right rib pain, tender to touch EXTREMITIES: 2+ pulses, no edema. NEUROLOGICAL: Normal speech, gait not observed. PSYCH: Normal mood, normal affect. SKIN: Healed scars diffusely scattered across the body. Vesicular rash on the left back region under the scapula along the dermatomal distribution, tender to touch. LABS CBC,CMP WBC 2.0 K/mm3 (4.0-10.0) L 01/09/20 07:10 RBC 3.20 M/mm3 (3.60-5.2) L 01/09/20 07:10 Hgb 10.7 GM/dL (10.7-15.3) 01/09/20 07:10 Hct 30.8 % (32.4-45.2) L 01/09/20 07:10 MCV 96.2 fl (80-96) H 01/09/20 07:10 MCH 33.6 pg (25.7-33.7) 01/09/20 07:10 MCHC 34.9 g/dl (32.0-36.0) 01/09/20 07:10 RDW 13.4 % (11.6-15.6) 01/09/20 07:10 Plt Count 134 K/MM3 (134-434) 01/09/20 07:10 MPV 9.9 fl (7.5-11.1) 01/09/20 07:10 Absolute Neuts (auto) 1.3 K/mm3 (1.5-8.0) L 01/07/20 06:30 Absolute Lymphs (auto) 0.7 x10E3/uL (0.7-3.1) 01/06/20 14:09 Neutrophils % 65.6 % (42.8-82.8) 01/07/20 06:30 Lymphocytes % 24.2 % (8-40) D 01/07/20 06:30 Monocytes % 6.4 % (3.8-10.2) 01/07/20 06:30 Eosinophils % 3.5 % (0-4.5) 01/07/20 06:30 Basophils % 0.3 % (0-2.0) 01/07/20 06:30 Nucleated RBC % 0 % (0-0) 01/07/20 06:30 Lymphocytes 22 % (Not Estab.) 01/06/20 14:09 Nucleated RBCs TNP 01/06/20 14:09 Sodium 140 mmol/L (136-145) 01/09/20 07:10 Potassium 3.8 mmol/L (3.5-5.1) 01/09/20 07:10 Chloride 112 mmol/L (98-107) H 01/09/20 07:10 Carbon Dioxide 24 mmol/L (21-32) 01/09/20 07:10 Anion Gap 4 MMOL/L (8-16) L 01/09/20 07:10 BUN 14.3 mg/dL (7-18) 01/09/20 07:10 Creatinine 1.0 mg/dL (0.55-1.3) 01/09/20 07:10 Est GFR (CKD-EPI)AfAm 88.17 01/09/20 07:10 Est GFR (CKD-EPI)NonAf 76.07 01/09/20 07:10 Random Glucose 85 mg/dL (74-106) 01/09/20 07:10 Lactic Acid 1.0 mmol/L (0.4-2.0) 01/06/20 14:09 Calcium 8.4 mg/dL (8.5-10.1) L 01/09/20 07:10 Total Bilirubin 0.4 mg/dL (0.2-1) 01/07/20 06:30 AST 18 U/L (15-37) 01/07/20 06:30 ALT 19 U/L (13-61) 01/07/20 06:30 Alkaline Phosphatase 85 U/L (45-117) 01/07/20 06:30 LD Total 277 U/L (84-246) H 01/06/20 14:09 Creatine Kinase 59 U/L (26-192) 01/06/20 14:09 Troponin I < 0.02 ng/ml (0.00-0.05) 01/06/20 14:09 Total Protein 7.2 g/dl (6.4-8.2) 01/07/20 06:30 Albumin 2.5 g/dl (3.4-5.0) L 01/07/20 06:30 Home Medications Medication Instructions Recorded Albuterol Sulfate Inhaler - 1 - 2 inh PO QID PRN #1 inhaler 12/30/19 [Ventolin HFA Inhaler -] Amlodipine Besylate [Norvasc -] 5 mg PO DAILY #30 tablet 12/30/19 Atovaquone [Mepron Oral Solution -] 10 ml PO DAILY #300 ml 12/30/19 Beclomethasone Dipropionate [Qvar 2 puff IH BID #1 hfa.aeroba 12/30/19 Redihaler] Darunavir/Cob/Emtri/Tenof Alaf 1 each PO DAILY #30 tablet 12/30/19 [Symtuza [id number] mg Tab] Mineral Oil/Petrolat,Wht/Water 1 applic TP BID PRN jar 01/10/20 [Eucerin (Large Jar) -] Valacyclovir HCl [Valtrex] 1,000 mg PO TID #21 tablet 01/10/20 Microbiology 01/06/20 14:09 Blood - Peripheral Venous Blood Culture - Preliminary NO GROWTH OBTAINED AFTER 96 HOURS, INCUBATION TO CONTINUE FOR 1 DAYS. 01/06/20 14:09 Blood - Peripheral Venous Blood Culture - Preliminary NO GROWTH OBTAINED AFTER 96 HOURS, INCUBATION TO CONTINUE FOR 1 DAYS. 01/07/20 15:20 Urine - Urine Clean Catch Urine Culture - Final NO GROWTH OBTAINED HOSPITAL COURSE: Date of Admission:01/06/20 29 y/o F, pmh of AIDs on HAART, followed at [facility], asthma, presented to the ED from her PCP office c/o of chills, myalgias and a rash on her back is admitted for sepsis 2/2 to herpes zoster rash. Pt was hypothermic at 94.1F on admission w/ leukopenia at 2.4. Disseminated zoster was r/o. Pt presented with Rash that was present on the posterior trunk along a thoracic dermatome. Pt was started on IV Acyclovir w/ IVF to prevent drug crystallization. ID was consulted, and they recommended continuing Acyclovir and start Cefepime empirically and Atovaquone 1500 mg to prevent AIDs defining infections/ illness. Pt's symptoms improved significantly and was stable. Pt was also treated for AIDs with HAART/Symtuza. She follows Dr. Byrne at the [facility] and had a CD4 count of 29 on 10/28, which has improved to CD4 count of 97. She had old healed scars present across the trunk. After improvement, she was discharged home on Valtrex and a advised to f/u Dr. Byrne at the [facility]. Pt was also advised the need outpatient follow up of a liver cyst that was incidentally found on CT imaging. CXR: large heart and no acute findings Date of Discharge: 01/10/20 Minutes to complete discharge: 40 Discharge Summary Problems reviewed: Yes Reason For Visit: IMMUNOSUPPRESSION AIDS Condition: Improved - Instructions Diet, Activity, Other Instructions: You were seen in the hospital for complaints of generalized weakness and a new rash on your back. You were found to have a herpes zoster infection. In the hospital, you were seen by the infectious disease doctor and given IV antiviral medication to help treat your infection. During your hospital stay, your symptoms improved. You are now stable to go to [facility] for drug rehab. Medications We have made the following changes to your medication: Please START Valtrex 1 mg three times a day for 7 days total. Your last dose will be on January 16, 2020. Please take the rest of your medications as prescribed. Follow Up Please follow up with your primary care physician within 1 week. If you do not have one, you may make an appointment at [facility]. You will need outpatient follow up of a liver cyst that was incidentally found on CT imaging. Please follow up with your infectious disease doctor, Dr. Yañez within 1 week. If you experience worsening fevers/chills, nausea/vomiting, chest pain, shortness of breath or other associated symptoms, please proceed to your nearest emergency room immediately. Referrals: [facility] [place] [facility] [place] [Provider Group] - 1 Week Poly Yañez MD [Staff Physician] - 1 Week Cholo Black DO [Staff Physician] - 1 Week Disposition: NURSING HOME FACILITY - Home Medications Comprehensive Discharge Medication List: Ambulatory Orders Albuterol Sulfate Inhaler - [Ventolin HFA Inhaler -] 1 - 2 inh PO QID PRN #1 inhaler 12/30/19 Amlodipine Besylate [Norvasc -] 5 mg PO DAILY #30 tablet 12/30/19 Atovaquone [Mepron Oral Solution -] 10 ml PO DAILY #300 ml 12/30/19 Beclomethasone Dipropionate [Qvar Redihaler] 2 puff IH BID #1 hfa.aeroba 12/30/19 Darunavir/Cob/Emtri/Tenof Alaf [Symtuza [id number] mg Tab] 1 each PO DAILY #30 tablet 12/30/19 Mineral Oil/Petrolat,Wht/Water [Eucerin (Large Jar) -] 1 applic TP BID PRN jar 01/10/20 Valacyclovir HCl [Valtrex] 1,000 mg PO TID #21 tablet 01/10/20 This patient is new to me today: Yes Date on this admission: 01/11/20 Emergency Visit: Yes ED Registration Date: 01/06/20 Care time: The patient presented to the Emergency Department on the above date and was hospitalized for further evaluation of their emergent condition. Critical Care patient: No - Discharge Referral Referred to [facility] Med P.C.: No ATTENDING PHYSICIAN STATEMENT I saw and evaluated the patient. I reviewed the resident's note and discussed the case with the resident. I agree with the resident's findings and plan as documented. SUBJECTIVE: OBJECTIVE: ASSESSMENT AND PLAN:
== END 2020-01-10 15:58 | disposition other institution (70) | DRG 892 ==
LOC: JER 13:16 → JERBED 17:18 → J8W 18:40
DX: A41.89 Other specified sepsis (principal); B20 Human immunodeficiency virus [HIV] disease; F17.210 Nicotine dependence, cigarettes, uncomplicated; B02.9 Zoster without complications; R68.0 Hypothermia, not associated with low environmental temperature; D72.819 Decreased white blood cell count, unspecified; I10 Essential (primary) hypertension; J45.909 Unspecified asthma, uncomplicated; E66.9 Obesity, unspecified; Z68.33 Body mass index [BMI] 33.0-33.9, adult
CPT/HCPCS: 36415; 71045-TC-FY; 71046-TC-FY; 80048; 80053; 82550; 82803; 83605; 83615; 84484; 85025; 85027; 85610; 85730; 86359; 86360; 87040; 87086; 87804; 93005; 93010; 99285-25; G0008; J7030; Q2036

== ENCOUNTER 2021-09-16 11:39 | Inpatient (IN) | payer OTHER ==
[2021-09-16 11:46] VITALS: BMI 34.0
[2021-09-16] MEDS ORDERED: SODIUM CHLORIDE 0.9% 500 ML INFUS.BAG IV ONE (13:49)
[2021-09-16] MEDS ORDERED: guaiFENesin/CODEINE 10 ML UNIT-DOSE CUPS PO ONE (13:50)
[2021-09-16] MEDS ORDERED: guaiFENesin 200 MG/10 ML 10 ML UNIT-DOSE CUPS ONE (14:59)
[2021-09-16] MEDS ORDERED: ALBUTEROL SO4 2.5/IPRATROPIUM 0.5 INH SOL 3 ML VIAL.NEB. NEB ONE (14:59)
[2021-09-16] MEDS: ALBUTEROL SO4 2.5/IPRATROPIUM 0.5 INH SOL 3 ML VIAL.NEB. NEB SCH ×3 (15:00→18:00)
[2021-09-16 16:49] LABS: CHLORIDE 116 mmol/L (98-107); SODIUM 142 mmol/L (136-145)
[2021-09-16 16:52] LABS: ANION GAP 7 MMOL/L (8-16); BLOOD UREA NITROGEN 22.5 mg/dL (7-18); CALCIUM 8.5 mg/dL (8.5-10.1); CO2 20 mmol/L (21-32); GLUCOSE,RANDOM 97 mg/dL (74-106)
[2021-09-16 16:55] LABS: SGOT/AST 36 U/L (15-37); SGPT/ALT 18 U/L (13-61)
[2021-09-16 16:56] LABS: CREATININE 2.4 mg/dL (0.55-1.3)
[2021-09-16 16:58] LABS: ALK PHOS 110 U/L (45-117); BILIRUBIN,TOTAL 0.6 mg/dL (0.2-1); TOT PROT 10.2 g/dl (6.4-8.2)
[2021-09-16] MEDS ORDERED: ONDANSETRON 4 MG/2 ML VIAL IVPUSH ONE (18:04)
[2021-09-16 19:33] LABS: EPI CELLS 17 /uL (0-25.1); HYALINE CASTS 9 /uL (0-3.1); PH,URINE 5.5 (5.0-8.0); URINE APPEARANCE CLOUDY; URINE BACTERIA 612 /uL (0-1359); URINE BILIRUBIN 1+ (NEGATIVE); URINE COLOR DK YELLOW; URINE GLUCOSE (UA) NEGATIVE (NEGATIVE); URINE KETONE TRACE (NEGATIVE); URINE LEUK ESTERASE 1+ (NEGATIVE); URINE NITRITE NEGATIVE (NEGATIVE); URINE PROTEIN 3+ (NEGATIVE); URINE RBC 84 /uL (0-23.9); URINE WBC 204 /uL (0-25.8)
[2021-09-16] MEDS ORDERED: LACTATED RINGERS SOLUTION 1000 ML INFUS.BAG IV ONE (20:20)
[2021-09-16 20:44] LABS: HEMATOCRIT 31.6 % (32.4-45.2); HEMOGLOBIN 10.9 GM/dL (10.7-15.3); MCH 33.4 pg (25.7-33.7); MCHC 34.7 g/dl (32.0-36.0); MEAN CELL VOLUME 96.5 fl (80-96); RBC 3.27 M/mm3 (3.60-5.2); RDW 12.9 % (11.6-15.6); WHITE BLOOD COUNT 3.9 K/mm3 (4.0-10.0)
[2021-09-16 22:21] LABS: ANISOCYTOSIS 0; MACROCYTOSIS 0; PLATELET ESTIMATE DECREASED; TOXIC GRANULATION 1+
[2021-09-16 22:22] LABS: MEAN PLT VOLUME 11.2 fl (7.5-11.1); PLATELET COUNT 74 10^3/uL (134-434)
[2021-09-17] MEDS ORDERED: HEPARIN NA (PORCINE) 5,000 UNITS/ML 1ML VIAL SQ SCH (02:00)
[2021-09-17] MEDS ORDERED: ALBUTEROL SO4 HFA INHALER IH PRN (04:11)
[2021-09-17] MEDS ORDERED: SODIUM CHLORIDE 1,000 ML IV SCH (06:15)
[2021-09-17] MEDS: POLYETHYLENE GLYCOL 3350 119 GM BTL PO SCH ×2 (07:33→10:50)
[2021-09-17] MEDS ORDERED: BENZOIN/ALOE VERA/STORAX/TOLU 58 ML BOTTLE ONE (08:02)
[2021-09-17] MEDS ORDERED: valACYclovir HCL 500 MG TABLET (FP) ONE ×2 (10:35→16:34)
[2021-09-17] MEDS ORDERED: PT OWN MED DRAWER 7, Y5N ONE (10:35)
[2021-09-17] MEDS ORDERED: FLUCONAZOLE 150 MG TABLET PO SCH (10:45)
[2021-09-17] MEDS: valACYclovir HCL 500 MG TABLET (FP) PO SCH ×2 (11:04→16:39)
[2021-09-17] MEDS: NICOTINE 14 MG/24 HOURS TOPICAL PATCH TD SCH (11:05)
[2021-09-17] MEDS: FLUCONAZOLE 150 MG TABLET PO SCH (11:55)
[2021-09-17] MEDS ORDERED: FLUCONAZOLE 150 MG TABLET PO ONE (11:59)
[2021-09-17 13:11] LABS: HEMATOCRIT 33.8 % (32.4-45.2); HEMOGLOBIN 11.6 GM/dL (10.7-15.3); MCH 32.7 pg (25.7-33.7); MCHC 34.3 g/dl (32.0-36.0); MEAN CELL VOLUME 95.4 fl (80-96); MEAN PLT VOLUME 10.6 fl (7.5-11.1); PLATELET COUNT 70 10^3/uL (134-434); RBC 3.54 M/mm3 (3.60-5.2); RDW 13.4 % (11.6-15.6); WHITE BLOOD COUNT 3.2 K/mm3 (4.0-10.0)
[2021-09-17 13:28] LABS: ALBUMIN 2.4 g/dl (3.4-5.0); BLOOD UREA NITROGEN 19.4 mg/dL (7-18); CALCIUM 8.4 mg/dL (8.5-10.1); MAGNESIUM 2.1 mg/dL (1.8-2.4)
[2021-09-17 13:31] LABS: PHOSPHOROUS 3.8 mg/dL (2.5-4.9)
[2021-09-17 13:32] LABS: IRON SERUM 68 ug/dL (50-175)
[2021-09-17 13:33] LABS: BILIRUBIN,TOTAL 0.4 mg/dL (0.2-1); TOT PROT 9.1 g/dl (6.4-8.2); TOTAL IRON BINDING CAPACITY 209 ug/dL (250-450)
[2021-09-17 15:38] LABS: ANISOCYTOSIS 0; MACROCYTOSIS 0; PLATELET ESTIMATE DECREASED
[2021-09-17] MEDS: ATOVAQUONE 750 MG/5 ML (UNIT-DOSE PACKAGING) PO SCH (18:15)
[2021-09-17] MEDS: POLYETHYLENE GLYCOL (HEALTHYLAX) 3350 17 GM PACKET PO SCH (23:00)
[2021-09-17] MEDS: SENNOSIDES/DOCUSATE COMBO (SENNA PLUS) TABLET (UD) PO SCH (23:00)
[2021-09-18 08:56] LABS: BASO % 0.6 % (0-2.0); HEMATOCRIT 32.6 % (32.4-45.2); HEMOGLOBIN 11.2 GM/dL (10.7-15.3); LYMPH % 12.7 % (8-40); MCH 33.5 pg (25.7-33.7); MCHC 34.3 g/dl (32.0-36.0); MEAN CELL VOLUME 97.8 fl (80-96); MEAN PLT VOLUME 10.6 fl (7.5-11.1); MONO % 17.2 % (3.8-10.2); NEUT % 66.5 % (42.8-82.8); PLATELET COUNT 69 10^3/uL (134-434); RBC 3.34 M/mm3 (3.60-5.2); RDW 12.9 % (11.6-15.6); WHITE BLOOD COUNT 2.5 K/mm3 (4.0-10.0)
[2021-09-18 09:14] LABS: BLOOD UREA NITROGEN 19.3 mg/dL (7-18); CALCIUM 8.7 mg/dL (8.5-10.1)
[2021-09-18 09:18] LABS: CREATININE 1.9 mg/dL (0.55-1.3)
[2021-09-18] MEDS ORDERED: PNEUMOC 13-VAL CONJ-DIP CRM/PF 0.5 ML DISP.SYRIN IM ONE (10:00)
[2021-09-18] MEDS ORDERED: FLU VACC QS2021-22(6MOS UP)/PF 60 MCG/0.5 ML SYRINGE IM ONE (10:00)
[2021-09-18] MEDS ORDERED: DEXTROSE 5%-WATER - 50 ML IVPB ONE (10:03)
[2021-09-18] MEDS ORDERED: cefTRIAXone SODIUM 1 GM VIAL ONE (10:03)
[2021-09-18] MEDS: NICOTINE 14 MG/24 HOURS TOPICAL PATCH TD SCH ×2 (10:13→11:50)
[2021-09-18] MEDS: POLYETHYLENE GLYCOL (HEALTHYLAX) 3350 17 GM PACKET PO SCH ×2 (10:13→21:48)
[2021-09-18] MEDS: CEFTRIAXONE 1 GM in DEXTROSE 5%-WATER - 50 ML IVPB SCH (10:14)
[2021-09-18] MEDS ORDERED: PT OWN MED DRAWER 7, Y5N ONE ×2 (12:28→14:28)
[2021-09-18] MEDS ORDERED: ALBUTEROL SO4 2.5/IPRATROPIUM 0.5 INH SOL 3 ML VIAL.NEB. NEB PRN (12:59)
[2021-09-18] MEDS: ATOVAQUONE 750 MG/5 ML (UNIT-DOSE PACKAGING) PO SCH (13:15)
[2021-09-18] MEDS ORDERED: SODIUM CHLORIDE 0.45% 1,000 ML IV SCH (14:00)
[2021-09-18] MEDS: FLUCONAZOLE 150 MG TABLET PO SCH (14:39)
[2021-09-18 18:32] LABS: METHADONE, UR NEGATIVE (NEGATIVE); URINE BENZODIAZEPINES NEGATIVE (NEGATIVE)
[2021-09-18 18:33] LABS: PHENCYCLIDINE,URINE NEGATIVE (NEGATIVE); URINE BARBITURATES NEGATIVE (NEGATIVE)
[2021-09-18 18:41] LABS: COCAINE, UR NEGATIVE (NEGATIVE); OPIATES, URI POSITIVE (NEGATIVE); URINE AMPHETAMINES POSITIVE (NEGATIVE)
[2021-09-18] MEDS: SENNOSIDES/DOCUSATE COMBO (SENNA PLUS) TABLET (UD) PO SCH (21:49)
[2021-09-19 08:50] LABS: HEMATOCRIT 34.2 % (32.4-45.2); HEMOGLOBIN 11.5 GM/dL (10.7-15.3); MCH 32.6 pg (25.7-33.7); MCHC 33.5 g/dl (32.0-36.0); MEAN CELL VOLUME 97.3 fl (80-96); MEAN PLT VOLUME 9.7 fl (7.5-11.1); PLATELET COUNT 81 10^3/uL (134-434); RBC 3.52 M/mm3 (3.60-5.2); RDW 13.5 % (11.6-15.6)
[2021-09-19 09:02] LABS: WHITE BLOOD COUNT 1.8 K/mm3 (4.0-10.0)
[2021-09-19 09:24] LABS: ALBUMIN 2.5 g/dl (3.4-5.0); BLOOD UREA NITROGEN 16.9 mg/dL (7-18); CALCIUM 8.8 mg/dL (8.5-10.1)
[2021-09-19 09:27] LABS: CREATININE 1.9 mg/dL (0.55-1.3)
[2021-09-19 09:28] LABS: BILIRUBIN,TOTAL 0.5 mg/dL (0.2-1); PHOSPHOROUS 3.3 mg/dL (2.5-4.9)
[2021-09-19] MEDS ORDERED: PT OWN MED DRAWER 7, Y5N ONE (10:49)
[2021-09-19] MEDS ORDERED: cefTRIAXone SODIUM 1 GM VIAL ONE (10:49)
[2021-09-19] MEDS ORDERED: DEXTROSE 5%-WATER - 50 ML IVPB ONE (10:50)
[2021-09-19] MEDS: ATOVAQUONE 750 MG/5 ML (UNIT-DOSE PACKAGING) PO SCH (10:57)
[2021-09-19] MEDS: NICOTINE 14 MG/24 HOURS TOPICAL PATCH TD SCH ×2 (10:58→11:07)
[2021-09-19] MEDS: POLYETHYLENE GLYCOL (HEALTHYLAX) 3350 17 GM PACKET PO SCH ×3 (10:58→21:24)
[2021-09-19] MEDS: FLUCONAZOLE 150 MG TABLET PO SCH (10:59)
[2021-09-19 12:12] LABS: ANISOCYTOSIS 0; MACROCYTOSIS 0; PLATELET ESTIMATE DECREASED
[2021-09-19] MEDS: CEFTRIAXONE 1 GM in DEXTROSE 5%-WATER - 50 ML IVPB SCH (14:22)
[2021-09-19] MEDS: SENNOSIDES/DOCUSATE COMBO (SENNA PLUS) TABLET (UD) PO SCH (21:24)
[2021-09-19 22:25] LABS: EPI CELLS >36 /uL (0-25.1); HYALINE CASTS 4 /uL (0-3.1); URINE APPEARANCE CLOUDY; URINE BACTERIA 58 /uL (0-1359); URINE BILIRUBIN NEGATIVE (NEGATIVE); URINE COLOR YELLOW; URINE GLUCOSE (UA) NEGATIVE (NEGATIVE); URINE KETONE TRACE (NEGATIVE); URINE LEUK ESTERASE 1+ (NEGATIVE); URINE NITRITE NEGATIVE (NEGATIVE); URINE PROTEIN 3+ (NEGATIVE); URINE RBC 11 /uL (0-23.9); URINE WBC 141 /uL (0-25.8)
[2021-09-20] MEDS: NICOTINE 14 MG/24 HOURS TOPICAL PATCH TD SCH (09:21)
[2021-09-20] MEDS: POLYETHYLENE GLYCOL (HEALTHYLAX) 3350 17 GM PACKET PO SCH ×2 (09:21→21:57)
[2021-09-20] MEDS ORDERED: cefTRIAXone SODIUM 1 GM VIAL ONE (09:24)
[2021-09-20] MEDS ORDERED: DEXTROSE 5%-WATER - 50 ML IVPB ONE (09:24)
[2021-09-20 09:25] LABS: BASO % 1.5 % (0-2.0); EOS % 5.3 % (0-4.5); HEMOGLOBIN 11.5 GM/dL (10.7-15.3); LYMPH % 16.7 % (8-40); MCH 33.3 pg (25.7-33.7); MCHC 33.7 g/dl (32.0-36.0); MEAN CELL VOLUME 98.8 fl (80-96); MEAN PLT VOLUME 10.6 fl (7.5-11.1); MONO % 21.3 % (3.8-10.2); NEUT % 55.2 % (42.8-82.8); RBC 3.44 M/mm3 (3.60-5.2); RDW 13.4 % (11.6-15.6)
[2021-09-20 09:36] LABS: WHITE BLOOD COUNT 1.4 K/mm3 (4.0-10.0)
[2021-09-20 10:00] LABS: ALBUMIN 2.7 g/dl (3.4-5.0); CALCIUM 8.5 mg/dL (8.5-10.1)
[2021-09-20 10:01] LABS: BLOOD UREA NITROGEN 17.8 mg/dL (7-18)
[2021-09-20 10:02] LABS: MAGNESIUM 1.9 mg/dL (1.8-2.4)
[2021-09-20 10:05] LABS: BILIRUBIN,TOTAL 0.5 mg/dL (0.2-1); PHOSPHOROUS 3.6 mg/dL (2.5-4.9)
[2021-09-20 10:06] LABS: TOT PROT 9.2 g/dl (6.4-8.2)
[2021-09-20] MEDS: FLUCONAZOLE 150 MG TABLET PO SCH (10:39)
[2021-09-20] MEDS: CEFTRIAXONE 1 GM in DEXTROSE 5%-WATER - 50 ML IVPB SCH (10:39)
[2021-09-20] MEDS: ATOVAQUONE 750 MG/5 ML (UNIT-DOSE PACKAGING) PO SCH (10:39)
[2021-09-20 12:35] LABS: PLATELET COUNT 100 10^3/uL (134-434)
[2021-09-20 12:39] LABS: ANISOCYTOSIS 1+; MACROCYTOSIS 1+; OVALOCYTE 1+; PLATELET ESTIMATE DECREASED; TEAR DROP CELLS 1+
[2021-09-20] MEDS: SENNOSIDES/DOCUSATE COMBO (SENNA PLUS) TABLET (UD) PO SCH (21:57)
[2021-09-20 22:19] VITALS: TEMP 98.3
[2021-09-21 05:53] VITALS: BP 118/86; PULSE 69
[2021-09-21] MEDS ORDERED: DEXTROSE 5%-WATER - 50 ML IVPB ONE (09:50)
[2021-09-21] MEDS ORDERED: cefTRIAXone SODIUM 1 GM VIAL ONE (09:50)
[2021-09-21] MEDS: POLYETHYLENE GLYCOL (HEALTHYLAX) 3350 17 GM PACKET PO SCH (10:10)
[2021-09-21] MEDS: NICOTINE 14 MG/24 HOURS TOPICAL PATCH TD SCH (10:11)
[2021-09-21] MEDS: CEFTRIAXONE 1 GM in DEXTROSE 5%-WATER - 50 ML IVPB SCH (10:11)
[2021-09-21] MEDS: ATOVAQUONE 750 MG/5 ML (UNIT-DOSE PACKAGING) PO SCH (10:12)
[2021-09-21] MEDS: FLUCONAZOLE 150 MG TABLET PO SCH (10:12)
[2021-09-21] MEDS ORDERED: BICTEGRAV/EMTRICIT/TENOFOV (BIKTARVY) 50-200-25 MG TABLET PO SCH (11:00)
[2021-09-21 15:58] LABS: HEMATOCRIT 33.8 % (32.4-45.2); HEMOGLOBIN 11.5 GM/dL (10.7-15.3); LYMPH % 18.8 % (8-40); MCH 32.4 pg (25.7-33.7); MEAN CELL VOLUME 95.3 fl (80-96); MEAN PLT VOLUME 9.1 fl (7.5-11.1); MONO % 18.9 % (3.8-10.2); NEUT % 52.3 % (42.8-82.8); PLATELET COUNT 93 10^3/uL (134-434); RBC 3.55 M/mm3 (3.60-5.2); RDW 13.1 % (11.6-15.6)
[2021-09-21 16:17] LABS: CALCIUM 8.5 mg/dL (8.5-10.1)
[2021-09-21 16:18] LABS: BLOOD UREA NITROGEN 19.6 mg/dL (7-18)
[2021-09-21 16:21] LABS: CREATININE 1.8 mg/dL (0.55-1.3); WHITE BLOOD COUNT 1.6 K/mm3 (4.0-10.0)
[2021-09-21 20:08] LABS: ANISOCYTOSIS 1+; HELMET CELLS 0; MACROCYTOSIS 1+; PLATELET ESTIMATE DECREASED; TARGET CELLS 1+; TEAR DROP CELLS 1+
== END 2021-09-21 18:33 | disposition left against medical advice (07) | DRG 892 ==
LOC: JER 11:39 → JERBED 20:27 → J7W 09-18 04:54
PROVIDERS: ADMIT Internal Medicine; ATTEND Internal Medicine
DX: J18.9 Pneumonia, unspecified organism (principal); B20 Human immunodeficiency virus [HIV] disease; N17.9 Acute kidney failure, unspecified; J98.11 Atelectasis; D61.818 Other pancytopenia; J45.901 Unspecified asthma with (acute) exacerbation; R59.0 Localized enlarged lymph nodes; N76.0 Acute vaginitis; D69.6 Thrombocytopenia, unspecified; I12.9 Hypertensive chronic kidney disease with stage 1 through stage 4 chronic kidney disease, or unspecified chronic kidney disease; N18.9 Chronic kidney disease, unspecified; D70.9 Neutropenia, unspecified; F32.A Depression, unspecified; K59.00 Constipation, unspecified; N39.0 Urinary tract infection, site not specified; F19.90 Other psychoactive substance use, unspecified, uncomplicated; Z91.14 Patient's other noncompliance with medication regimen; Z88.1 Allergy status to other antibiotic agents; Z86.14 Personal history of Methicillin resistant Staphylococcus aureus infection
CPT/HCPCS: 36415; 71045-TC-FY; 71250-TC; 74176-TC; 76775-TC; 80048; 80053; 80307; 81003; 82570; 83540; 83550; 83615; 83735; 84100; 84156; 84702; 85025; 86359; 86360; 87040; 87086; 87102; 87210; 90670; 90686; 93005; 93010; 97116-GP; 97161-GP; 99285-25; C9803; G0008; U0003; U0005